=== PATIENT | male | born 1940 | race Caucasian/White ===

== ENCOUNTER 2018-02-13 09:25 | Day surgery (SDC) | payer MEDICARE, OTHER ==
[2018-02-11 15:35] VITALS: BMI 35.9
[~2018-02-13 09:25] MED LIST: LACTATED RINGERS 1,000 ML IV SCH
[2018-02-13 10:48] VITALS: TEMP 97
[2018-02-13] MEDS ORDERED: LIDOCAINE 1% 20 ML VIAL (10MG/ML) FOR IV START INTRADERMA ONE (10:49)
[2018-02-13] MEDS ORDERED: PROPOFOL 10 MG/ML 20 ML VIAL IV ONE (11:35)
[2018-02-13] MEDS ORDERED: LIDOCAINE 1% INJ 10MG/ML (20 ML MDV) ONE (11:35)
[2018-02-13 12:12] VITALS: BP 132/87; PULSE 75; RESP 12
--- NOTE | 2018-02-13 12:16 | P.PCN ---
Date of Procedure: 02/13/18 Procedure(s) Performed: Procedure: 1. Esophagogastroduodenoscopy and biopsy. 2. Total colonoscopy. Preoperative diagnosis: Hemoccult-positive stools. Postoperative diagnosis: 1. Small sliding hiatal hernia with no obvious esophagitis or complicated reflux disease. 2. Antral gastritis. 3. Diverticulosis with no evidence of acute diverticulitis or strictures. 4. Biopsy obtained from the antrum to rule out H. pylori infection. Preparation: HalfLytely prep. Sedation: Was provided by anesthesia. Brief clinical history: The patient is a 77-year-old male who is referred for this evaluation because of finding of Hemoccult positive stools. The patient has history of polyps and history of peptic ulcer disease. Procedure: With the patient on his left lateral decubitus position and after informed consent and adequate sedation, I passed the Olympus-GIF 160 video upper endoscope through the cricopharyngeus down the esophagus. GE junction was around 38 cm from the incisors and there was a small sliding hiatal hernia but no obvious esophagitis or complicated reflux disease. The endoscope was then passed into the stomach which was insufflated with air and inspected in detail including the retroflex view in the cardia. There was some mottling and erythema and couple erosions in the antrum but no ulcers or bleeding. Pyloric channel, duodenal bulb, post bulbar area and descending duodenum appeared within normal limits. I obtained biopsies from the antrum then the endoscope was withdrawn and I proceeded with the colonoscopy. Perianal area did not show any fissures or fistulas. There were no masses felt on digital rectal examination. The Olympus CFQ 160L video colonoscope was then inserted in the rectum in the usual fashion and advanced to the cecum. There were multiple diverticular orifices seen scattered on the sigmoid and left side as well as on the right side with no evidence of acute diverticulitis or strictures. No polyps or tumors were seen the mucosa appeared healthy. I retroflexed the endoscope in the rectum before the endoscope was withdrawn. The patient tolerated the procedure well. Plan: The patient was reassured. Discussed dietary measures. We will await biopsy results. Further plans based on his course. He will follow up with you as planned.
== END 2018-02-13 13:12 | disposition home or self-care (01) ==
LOC: ORWHC2ENDO 09:25
DX: K29.70 Gastritis, unspecified, without bleeding (principal); R19.5 Other fecal abnormalities; K44.9 Diaphragmatic hernia without obstruction or gangrene; K57.30 Diverticulosis of large intestine without perforation or abscess without bleeding; I25.10 Atherosclerotic heart disease of native coronary artery without angina pectoris; I10 Essential (primary) hypertension; E78.5 Hyperlipidemia, unspecified; E07.9 Disorder of thyroid, unspecified; K21.9 Gastro-esophageal reflux disease without esophagitis; Z79.82 Long term (current) use of aspirin; Z79.899 Other long term (current) drug therapy; Z95.5 Presence of coronary angioplasty implant and graft; Z86.010 Personal history of colon polyps; Z87.11 Personal history of peptic ulcer disease
CPT/HCPCS: 88305; 45378; 43239; J2001; J2704

== ENCOUNTER 2020-08-14 17:52 | Inpatient (IN) | payer MEDICARE, OTHER ==
--- NOTE | 2020-08-14 18:21 | ED ---
General Adult HPI - General Chief complaint: Chest Pain Stated complaint: Chest Pain, SOB Time Seen by Provider: 08/14/20 18:05 Source: patient, RN notes reviewed, old records reviewed Mode of arrival: wheelchair Limitations: no limitations - History of Present Illness Initial comments: 80-year-old male presenting with chief complaint of dyspnea. Patient has had some chest discomfort associated with dyspnea. Has been ongoing for approximately one week. He denies fever. Denies significant cough. He denies lower extremity pain or swelling. He has history of CAD. He has no history of DVT or PE. No history of COPD or asthma. Patient states that he has predominately exertional dyspnea. He also reports nasal congestion and rhinorrhea. No vomiting or diarrhea. He denies primary rectal bleeding, he does state that his stool has been dark and he has been taking some indigestion medication. - Related Data Home Medications Medication Instructions Recorded Confirmed Aspirin [Adult Low Dose Aspirin EC] 81 mg PO DAILY 02/11/18 08/14/20 Levothyroxine Sodium [Synthroid] 200 mcg PO DAILY 02/11/18 08/14/20 Cholecalciferol [Vitamin D3 (25 25 mcg PO DAILY 08/14/20 08/14/20 Mcg = 1000 Iu)] Cyanocobalamin (Vitamin B-12) 1,000 mcg PO DAILY 08/14/20 08/14/20 [Vitamin B-12] Fexofenadine HCl [Isabelle Allergy] 180 mg PO DAILY PRN 08/14/20 08/14/20 Omeprazole [PriLOSEC] 20 mg PO DAILY PRN 08/14/20 08/14/20 Allergies Allergy/AdvReac Type Severity Reaction Status Date / Time No Known Allergies Allergy Verified 08/14/20 19:10 Review of Systems ROS Statement: Those systems with pertinent positive or pertinent negative responses have been documented in the HPI. ROS Other: All systems not noted in ROS Statement are negative. Past Medical History Past Medical History: Eye Disorder, GERD/Reflux, Hyperlipidemia, Hypertension, Thyroid Disorder Additional Past Medical History / Comment(s): "Prediabetes, watching diet, no me dications." Bilateral cataracts. History of Any Multi-Drug Resistant Organisms: None Reported Past Surgical History: Cholecystectomy, Heart Catheterization With Stent Additional Past Surgical History / Comment(s): Colonoscopy. Past Anesthesia/Blood Transfusion Reactions: No Reported Reaction Date of Last Stent Placement:: 2012 Past Psychological History: No Psychological Hx Reported Smoking Status: Never smoker Past Alcohol Use History: Rare Past Drug Use History: None Reported - Past Family History Brother(s) Family Medical History: Cancer General Exam Limitations: no limitations General appearance: alert, in no apparent distress Head exam: Present: atraumatic, normocephalic Eye exam: Present: normal appearance, PERRL ENT exam: Present: mucous membranes moist Neck exam: Present: normal inspection. Absent: tenderness, meningismus Respiratory exam: Present: respiratory distress, rhonchi, decreased breath sounds Cardiovascular Exam: Present: normal rhythm, tachycardia GI/Abdominal exam: Present: soft. Absent: distended, tenderness, guarding Rectal exam: Present: black stool Extremities exam: Present: normal inspection, normal capillary refill. Absent: pedal edema, calf tenderness Neurological exam: Present: alert, oriented X3, CN II-XII intact. Absent: motor sensory deficit Psychiatric exam: Present: normal affect, normal mood Skin exam: Present: warm, dry, intact. Absent: cyanosis, diaphoretic Course Vital Signs 08/14/20 08/14/20 17:53 19:17 Temperature 98 F Pulse Rate 120 H 105 H Respiratory 24 17 Rate Blood Pressure 177/74 129/68 O2 Sat by Pulse 100 99 Oximetry EKG Findings - EKG Comments: EKG Findings:: EKG: Sinus tachycardia, low voltage, rate of 103, CT interval 180, QRS duration 90, QTC 437, no ST segment elevation. Medical Decision Making - Medical Decision Making 80-year-old male with exertional dyspnea, dark stool. Workup initiated, patient found to have a hemoglobin 6.9, he has a normal CMP, negative d-dimer, negative troponin, negative BNP and I suspect his dyspnea is related to acute anemia. He's transfused one unit of packed RBCs, started on protonic's. He's admitted to Dr. Massey who is aware of the patient with GI on consult. - Lab Data Result diagrams: 08/14/20 18:32 08/14/20 18:32 Lab Results 08/14/20 08/14/20 08/14/20 Range/Units 18:32 18:32 18:32 WBC 10.7 H (3.8-10.6) k/uL RBC 3.81 L (4.30-5.90) m/uL Hgb 6.9 L* (13.0-17.5) gm/dL Hct 24.8 L (39.0-53.0) % MCV 65.1 L (80.0-100.0) fL MCH 18.0 L (25.0-35.0) pg MCHC 27.7 L (31.0-37.0) g/dL RDW 17.3 H (11.5-15.5) % Plt Count 353 (150-450) k/uL MPV 9.9 Neutrophils % 59 % Lymphocytes % 31 % Monocytes % 5 % Eosinophils % 1 % Basophils % 1 % Neutrophils # 6.3 (1.3-7.7) k/uL Lymphocytes # 3.3 (1.0-4.8) k/uL Monocytes # 0.6 (0-1.0) k/uL Eosinophils # 0.1 (0-0.7) k/uL Basophils # 0.1 (0-0.2) k/uL Manual Slide Review Performed Large Platelets Present Hypochromasia Marked Poikilocytosis Moderate Anisocytosis Slight Microcytosis Marked PT 9.7 (9.0-12.0) sec INR 0.9 (<1.2) APTT 20.0 L (22.0-30.0) sec D-Dimer 0.55 (<0.60) mg/L FEU Sodium 138 (137-145) mmol/L Potassium 4.1 (3.5-5.1) mmol/L Chloride 103 (98-107) mmol/L Carbon Dioxide 25 (22-30) mmol/L Anion Gap 10 mmol/L BUN 25 H (9-20) mg/dL Creatinine 1.03 (0.66-1.25) mg/dL Est GFR (CKD-EPI)AfAm 80 (>60 ml/min/1.73 sqM) Est GFR (CKD-EPI)NonAf 69 (>60 ml/min/1.73 sqM) Glucose 119 H (74-99) mg/dL Calcium 9.3 (8.4-10.2) mg/dL Magnesium 2.0 (1.6-2.3) mg/dL Total Bilirubin 0.3 (0.2-1.3) mg/dL AST 16 L (17-59) U/L ALT 9 (4-49) U/L Alkaline Phosphatase 107 (38-126) U/L Troponin I (0.000-0.034) ng/mL NT-Pro-B Natriuret Pep pg/mL Total Protein 6.8 (6.3-8.2) g/dL Albumin 3.9 (3.5-5.0) g/dL Stool Occult Blood (Negative) Coronavirus (PCR) (Not Detectd) 08/14/20 08/14/20 08/14/20 Range/Units 18:32 18:32 18:32 WBC (3.8-10.6) k/uL RBC (4.30-5.90) m/uL Hgb (13.0-17.5) gm/dL Hct (39.0-53.0) % MCV (80.0-100.0) fL MCH (25.0-35.0) pg MCHC (31.0-37.0) g/dL RDW (11.5-15.5) % Plt Count (150-450) k/uL MPV Neutrophils % % Lymphocytes % % Monocytes % % Eosinophils % % Basophils % % Neutrophils # (1.3-7.7) k/uL Lymphocytes # (1.0-4.8) k/uL Monocytes # (0-1.0) k/uL Eosinophils # (0-0.7) k/uL Basophils # (0-0.2) k/uL Manual Slide Review Large Platelets Hypochromasia Poikilocytosis Anisocytosis Microcytosis PT (9.0-12.0) sec INR (<1.2) APTT (22.0-30.0) sec D-Dimer (<0.60) mg/L FEU Sodium (137-145) mmol/L Potassium (3.5-5.1) mmol/L Chloride (98-107) mmol/L Carbon Dioxide (22-30) mmol/L Anion Gap mmol/L BUN (9-20) mg/dL Creatinine (0.66-1.25) mg/dL Est GFR (CKD-EPI)AfAm (>60 ml/min/1.73 sqM) Est GFR (CKD-EPI)NonAf (>60 ml/min/1.73 sqM) Glucose (74-99) mg/dL Calcium (8.4-10.2) mg/dL Magnesium (1.6-2.3) mg/dL Total Bilirubin (0.2-1.3) mg/dL AST (17-59) U/L ALT (4-49) U/L Alkaline Phosphatase (38-126) U/L Troponin I <0.012 (0.000-0.034) ng/mL NT-Pro-B Natriuret Pep 148 pg/mL Total Protein (6.3-8.2) g/dL Albumin (3.5-5.0) g/dL Stool Occult Blood (Negative) Coronavirus (PCR) Not Detected (Not Detectd) 08/14/20 Range/Units 19:11 WBC (3.8-10.6) k/uL RBC (4.30-5.90) m/uL Hgb (13.0-17.5) gm/dL Hct (39.0-53.0) % MCV (80.0-100.0) fL MCH (25.0-35.0) pg MCHC (31.0-37.0) g/dL RDW (11.5-15.5) % Plt Count (150-450) k/uL MPV Neutrophils % % Lymphocytes % % Monocytes % % Eosinophils % % Basophils % % Neutrophils # (1.3-7.7) k/uL Lymphocytes # (1.0-4.8) k/uL Monocytes # (0-1.0) k/uL Eosinophils # (0-0.7) k/uL Basophils # (0-0.2) k/uL Manual Slide Review Large Platelets Hypochromasia Poikilocytosis Anisocytosis Microcytosis PT (9.0-12.0) sec INR (<1.2) APTT (22.0-30.0) sec D-Dimer (<0.60) mg/L FEU Sodium (137-145) mmol/L Potassium (3.5-5.1) mmol/L Chloride (98-107) mmol/L Carbon Dioxide (22-30) mmol/L Anion Gap mmol/L BUN (9-20) mg/dL Creatinine (0.66-1.25) mg/dL Est GFR (CKD-EPI)AfAm (>60 ml/min/1.73 sqM) Est GFR (CKD-EPI)NonAf (>60 ml/min/1.73 sqM) Glucose (74-99) mg/dL Calcium (8.4-10.2) mg/dL Magnesium (1.6-2.3) mg/dL Total Bilirubin (0.2-1.3) mg/dL AST (17-59) U/L ALT (4-49) U/L Alkaline Phosphatase (38-126) U/L Troponin I (0.000-0.034) ng/mL NT-Pro-B Natriuret Pep pg/mL Total Protein (6.3-8.2) g/dL Albumin (3.5-5.0) g/dL Stool Occult Blood Positive (Negative) Coronavirus (PCR) (Not Detectd) Critical Care Time Critical Care Time: Yes Total Critical Care Time: 35 Disposition Clinical Impression: GI bleed, Acute blood loss anemia Disposition: ADMITTED IP TO THIS [facility] Condition: Stable Is patient prescribed a controlled substance at d/c from ED?: No Referrals: Solitario Otero MD [Primary Care Provider] - 1-2 days Decision to Admit Reason: Admit from EC Decision Date: 08/14/20 Decision Time: 19:45
[2020-08-14 18:42] LABS: Anisocytosis Slight; Basophils # (A) 0.1 k/uL (0-0.2); Basophils % (A) 1 %; Eosinophils # (A) 0.1 k/uL (0-0.7); Eosinophils % (A) 1 %; HCT 24.8 % (39.0-53.0); Hypochromasia Marked; Lymphocytes # (A) 3.3 k/uL (1.0-4.8); Lymphocytes % (A) 31 %; MCHC 27.7 g/dL (31.0-37.0); MCV 65.1 fL (80.0-100.0); Mean Platelet Volume 9.9; Microcytosis Marked; Monocytes # (A) 0.6 k/uL (0-1.0); Monocytes % (A) 5 %; Neutrophils # (A) 6.3 k/uL (1.3-7.7); Neutrophils % (A) 59 %; Platelet Count 353 k/uL (150-450); Poikilocytosis Moderate; RBC 3.81 m/uL (4.30-5.90); RDW 17.3 % (11.5-15.5); WBC 10.7 k/uL (3.8-10.6)
[2020-08-14 18:49] LABS: HGB 6.9 gm/dL (13.0-17.5)
[2020-08-14 18:51] LABS: Albumin 3.9 g/dL (3.5-5.0); Calcium 9.3 mg/dL (8.4-10.2); Potassium 4.1 mmol/L (3.5-5.1); Total Bilirubin 0.3 mg/dL (0.2-1.3); Total Protein 6.8 g/dL (6.3-8.2)
[2020-08-14 18:54] LABS: Large Platelets Present
[2020-08-14 19:01] LABS: INR 0.9 (<1.2)
--- NOTE | 2020-08-14 19:01 | XR ---
EXAMINATION TYPE: XR chest 2V DATE OF EXAM: 08/14/2020 COMPARISON: 02/20/2013. HISTORY: Chest pain. TECHNIQUE: Frontal and lateral views of the chest are obtained. FINDINGS: There is no focal air space opacity, pleural effusion, or pneumothorax seen. The cardiac silhouette size is enlarged. The osseous structures are intact. IMPRESSION: No acute cardiopulmonary process. Cardiomegaly.
[2020-08-14 19:02] LABS: D-Dimer 0.55 mg/L FEU (<0.60); Prothrombin Time 9.7 sec (9.0-12.0)
[2020-08-14] MEDS ORDERED: PANTOPRAZOLE 40 MG/10 ML VIAL IVP STA (19:02)
[2020-08-14] MEDS ORDERED: NALOXONE 0.4 MG/ML 1 ML VIAL IV PRN (19:40)
[2020-08-14] MEDS: SODIUM CHLORIDE 0.9% 1,000 ML IV SCH (19:54)
[2020-08-15] MEDS ORDERED: MELATONIN 3 MG TABLET PO STA (00:57)
[2020-08-15] MEDS: PANTOPRAZOLE 40 MG/10 ML VIAL IVP SCH ×3 (01:08→21:02)
[2020-08-15] MEDS: LEVOTHYROXINE 50 MCG TAB PO SCH (05:27)
[2020-08-15 05:48] LABS: Albumin 3.2 g/dL (3.5-5.0); Calcium 8.7 mg/dL (8.4-10.2); Potassium 4.3 mmol/L (3.5-5.1); Total Bilirubin 0.7 mg/dL (0.2-1.3)
[2020-08-15 06:26] LABS: Anisocytosis Slight; HCT 25.7 % (39.0-53.0); HGB 7.3 gm/dL (13.0-17.5); Hypochromasia Marked; MCHC 28.3 g/dL (31.0-37.0); MCV 67.1 fL (80.0-100.0); Mean Platelet Volume 10.4; Microcytosis Marked; Platelet Count 336 k/uL (150-450); Poikilocytosis Marked; RBC 3.83 m/uL (4.30-5.90); RDW 18.3 % (11.5-15.5); WBC 7.5 k/uL (3.8-10.6)
[2020-08-15 06:45] LABS: Eosinophils # (M) 0.23 k/uL (0-0.7); Lymphocytes # (M) 2.03 k/uL (1.0-4.8); Neutrophils # (M) 4.95 k/uL (1.3-7.7); Neutrophils % (M) 66 %; Nucleated Red Blood Cells 0 /100 WBC (0-0); Total Cells Counted 100
[2020-08-15 06:46] LABS: Anisocytosis (M) Present; Hypochromasia (M) Present; Ovalocytes Present; Poikilocytosis (M) Present; Polychromasia Present; Tear Drop Cells Present
[2020-08-15] MEDS: SODIUM CHLORIDE 0.9% 1,000 ML IV SCH ×2 (08:07→21:03)
--- NOTE | 2020-08-15 12:22 | CONS ---
CONSULTATION DATE OF DICTATION: 08/15/2020 REASON FOR CONSULTATION: Severe hypochromic microcytic anemia. HISTORY OF PRESENT ILLNESS: The patient is a 80-year-old pleasant white male came into the emergency room complaining of shortness of breath, fatigue, not feeling well with dark stools associated with some chest discomfort on and off for the last 1-2 weeks duration. He came to the ER, was noted to have a hemoglobin of 6.9 g/dL. He received one unit of PRBC transfusion and repeat hemoglobin is 8 g/dL. The patient denies any abdominal pain. No nausea, no vomiting. No rectal bleeding. He did have some dark colored stools on and off for the last one week duration. No prior history of peptic ulcer disease. No recent NSAID use. Last EGD and colonoscopy in January of [address] Pham showed some gastritis and diverticulosis. PAST MEDICAL HISTORY: Significant for coronary artery disease, hypothyroidism and GERD. MEDICATIONS AT HOME: Aspirin, Synthroid, vitamin B12, vitamin D3, Isabelle, omeprazole. ALLERGIES: None. SOCIAL HISTORY: No smoking. No alcohol use. PAST SURGICAL HISTORY: Cholecystectomy, cardiac catheterization. REVIEW OF SYSTEMS: CARDIOPULMONARY: Did have some chest discomfort and shortness of breath, but feeling much better today. NEUROLOGY: Unremarkable. PSYCHIATRIC: Unremarkable. ENT/VISION: Unremarkable. GI: As mentioned above. ENDOCRINE: Unremarkable. HEMATOLOGY: Severe anemia. CONSTITUTIONAL: No recent weight loss. No fever, chills, night sweats. FAMILY HISTORY: Brother had some kind of cancer. PHYSICAL EXAMINATION: He appears comfortable, in no apparent distress. Vital signs are stable. Blood pressure 133/86, pulse rate 82 and afebrile. HEENT EXAMINATION: Unremarkable. Conjunctivae pink. Sclerae anicteric. Oral cavity no lesions. NECK: No JVD or lymph node enlargement. CHEST: Was clear to auscultation. HEART: Regular rate and rhythm. ABDOMEN: Soft. Bowel sounds are positive. No organomegaly. EXTREMITIES: No pedal edema. SKIN: No rashes. NEUROLOGIC: Alert and oriented x3. No focal deficits. LABS: Labs from yesterday, WBC 10.7, hemoglobin 6.9, platelets normal. Basic metabolic panel is within normal limits. BUN 25, creatinine 1.03. Stool occult blood is positive. Coronavirus PCR is negative. IMPRESSION: 1. Severe microcytic hypochromic anemia consistent with iron deficiency anemia from occult gastrointestinal blood loss. The patient may have a component of acute blood loss too because he has been having some dark-colored stools for the last one week duration. Last EGD and colonoscopy in January of 2018 was unremarkable. 2. History of coronary artery disease, status post stent placement 5 years ago, on aspirin. 3. History of hypothyroidism. RECOMMENDATIONS: 1. Continue with Protonix 40 mg daily. 2. I had a lengthy discussion with the patient regarding severe microcytic hypochromic anemia and workup will include an upper endoscopy as well as colonoscopy for which he is agreeable to it. In the meantime, monitor CBC daily. Schedule him for EGD and colonoscopy tomorrow. 3. We will follow with you closely. Thank you for this consultation. SOLIS / MEAGANN: [id number] /
[2020-08-15 12:40] LABS: Anisocytosis Slight; HCT 24.6 % (39.0-53.0); HGB 7.2 gm/dL (13.0-17.5); Hypochromasia Marked; MCH 19.8 pg (25.0-35.0); MCHC 29.4 g/dL (31.0-37.0); MCV 67.3 fL (80.0-100.0); Mean Platelet Volume 9.4; Microcytosis Marked; Platelet Count 312 k/uL (150-450); Poikilocytosis Marked; RBC 3.66 m/uL (4.30-5.90); RDW 18.4 % (11.5-15.5); WBC 7.7 k/uL (3.8-10.6)
[2020-08-15 13:05] LABS: Calcium 8.8 mg/dL (8.4-10.2); Potassium 4.6 mmol/L (3.5-5.1)
[2020-08-15] MEDS ORDERED: PEG 3350-NA SULF,BICARB,CL/KCL 4,000 ML BOTTLE PO ONE (17:00)
[2020-08-16] MEDS: LEVOTHYROXINE 50 MCG TAB PO SCH (06:31)
[2020-08-16] MEDS: PANTOPRAZOLE 40 MG/10 ML VIAL IVP SCH ×2 (08:07→21:41)
[2020-08-16 09:38] LABS: Anisocytosis Slight; HCT 25.3 % (39.0-53.0); HGB 7.2 gm/dL (13.0-17.5); Hypochromasia Marked; MCH 19.1 pg (25.0-35.0); MCHC 28.6 g/dL (31.0-37.0); Microcytosis Marked; Platelet Count 291 k/uL (150-450); Poikilocytosis Marked; RBC 3.77 m/uL (4.30-5.90); RDW 19.3 % (11.5-15.5); WBC 8.4 k/uL (3.8-10.6)
[2020-08-16 09:49] LABS: Calcium 8.6 mg/dL (8.4-10.2); Potassium 4.5 mmol/L (3.5-5.1)
[2020-08-16] MEDS ORDERED: LIDOCAINE 1% INJ 10MG/ML (20 ML MDV) ONE (12:54)
[2020-08-16] MEDS ORDERED: PROPOFOL 10 MG/ML 20 ML VIAL IV ONE (12:54)
[2020-08-16] MEDS ORDERED: IV FLUID CONTINUATION 1,000 ML IV ONE ×2 (12:55)
--- NOTE | 2020-08-16 13:24 | P.PCN ---
Date of Procedure: 08/16/20 Procedure(s) Performed: Brief history: Patient is a pleasant 80-year-old white male scheduled for an elective upper endoscopy as well as colonoscopy as a part of evaluation of severe symptomatic anemia and hemoglobin of 6.9 g/dL requiring 1 unit of PRBC transfusion. He having some darker stools lately. Last hemoglobin was 7.5 g/dL. Procedure performed: Esophagogastroduodenoscopy biopsy Colonoscopy Preoperative diagnosis: Severe symptomatic anemia and dark colored stools. Anesthesia: MAC Procedure: After informed consent was obtained from the patient was brought into the endoscopy unit and IV sedation was administered by anesthesia under continuous monitoring. Initially upper endoscopy was done. The Olympus GF 160 video endoscope was inserted inserted into the mouth and esophagus intubated without any difficulty and was gradually advanced into the stomach and duodenum and carefully examined. The bulb and second part of the duodenum appeared normal. The scope was then withdrawn into the stomach adequately insufflated with air and upon careful examination the antrum had a 5 mm superficial ulceration with no active bleeding. Gastritis noted in the antrum and biopsies were done from this area. The body, cardia and fundus appeared normal. The scope was then withdrawn into the esophagus. The GE junction was located at 40 cm to the incisors. It appeared regular with no erythema erosions or ulcerations. Rest of the esophagus appeared normal. Patient tolerated the procedure well. At this time the patient continued to remain sedation. Initial digital rectal examination was normal. Olympus CF 160 video colonoscope was then inserted into the rectum and gradually advanced to the cecum without any difficulty. Careful examination was performed as the scope was gradually being withdrawn. The prep was excellent. The cecum appeared normal. In the ascending colon there was a 1 cm polyp removed by snare polypectomy., ascending colon, transverse colon, descending colon, sigmoid colon and rectum appeared normal. Scattered sigmoid diverticulosis seen. Retroflexion was performed in the rectum and no lesions were noted. Patient tolerated the procedure well. Impression: 1. Upper endoscopy revealed 5 mm antral ulcer with no active bleeding and antral gastritis 2. Colonoscopy revealed a revealed a 1 cm ascending colon polyp status post polypectomy and scattered sigmoid diverticulosis Recommendations: Findings of this examination were discussed with the patient . He was advised to follow with the biopsy results. He will continue on Protonix 40 mg daily and follow antireflux measures. Diet will be advanced as tolerated.
--- NOTE | 2020-08-16 17:36 | PN ---
PROGRESS NOTE DATE OF SERVICE: 08/15/2020 CHIEF COMPLAINT: GI bleed. HISTORY OF PRESENT ILLNESS: This gentleman is doing well. He is not having any further bleeding. He is going for endoscopies tomorrow. PHYSICAL EXAMINATION: Vital signs are stable. He is pale. Chest is clear. Cardiac exam is normal. Abdomen is soft and protuberant. IMPRESSION: 1. Gastrointestinal bleed, probably upper. 2. History of hypertension. 3. History of anemia. 4. Hyperlipidemia. PLAN: Endoscopies tomorrow. MMODL / IJN: [id number] /
--- NOTE | 2020-08-16 18:27 | PN ---
PROGRESS NOTE DATE OF SERVICE: 08/16/2020 CHIEF COMPLAINT: GI bleed. HISTORY OF PRESENT ILLNESS: This gentleman is stable and he is going for endoscopies today. PHYSICAL EXAMINATION: Chest is clear. Cardiac exam is normal. Abdomen is soft and protuberant. IMPRESSION: Gastrointestinal bleed. PLAN: Upper and lower GI endoscopies today and then determine further treatment and possible discharge. MMODL / IJN: [id number] /
[2020-08-17] MEDS: LEVOTHYROXINE 50 MCG TAB PO SCH (06:19)
[2020-08-17] MEDS: PANTOPRAZOLE 40 MG/10 ML VIAL IVP SCH ×2 (08:46→19:32)
[2020-08-17 11:16] LABS: Anisocytosis Slight; HCT 24.3 % (39.0-53.0); Hypochromasia Marked; MCH 19.3 pg (25.0-35.0); MCHC 28.3 g/dL (31.0-37.0); MCV 68.1 fL (80.0-100.0); Mean Platelet Volume 7.7; Microcytosis Marked; Platelet Count 275 k/uL (150-450); Poikilocytosis Moderate; RBC 3.57 m/uL (4.30-5.90); RDW 19.2 % (11.5-15.5); WBC 7.7 k/uL (3.8-10.6)
[2020-08-17 11:26] LABS: HGB 6.9 gm/dL (13.0-17.5)
--- NOTE | 2020-08-17 11:58 | P.PN ---
Subjective Progress Note Date: 08/17/20 Principal diagnosis: Severe hypochromic microcytic anemia This patient is a pleasant 80-year-old white male who underwent an upper endoscopy and colonoscopy yesterday as part of evaluation of severe symptomatic anemia with an admission hemoglobin of 6.9 requiring 1 unit of PRBC transfusion. He states he's been having darker stools for the last week's duration. Today he is seen and examined lying up in bed. He states he feels well overall. Denies any abdominal pain, nausea, or vomiting. He has not had a bowel movement since his procedures and denies any rectal bleeding. Objective - Vital Signs Vital signs: Vital Signs Temp 98.6 F 08/17/20 08:45 Pulse 90 08/17/20 08:45 Resp 16 08/17/20 08:45 BP 112/65 08/17/20 08:45 Pulse Ox 97 08/17/20 08:45 Intake & Output 08/16/20 08/17/20 08/17/20 18:59 06:59 18:59 Intake Total 1180 240 Balance 1180 240 Weight 122.1 kg Intake: IV 400 Oral 780 240 Other: Voiding Method Toilet Toilet # Voids 3 2 - Exam General appearance: The patient is alert, oriented, appears in no acute distress. HET: Head is normocephalic and atraumatic. Conjunctiva pink. Sclera anicteric. Neck: Supple without lymphadenopathy. Abdomen: Soft, nontender, nondistended with bowel sounds. No guarding or rigidity. Extremities: Normal skin color and turgor. No pedal edema Skin: No rashes, no jaundice Neurological: No focal deficits. Alert and oriented 3. - Labs CBC & Chem 7: 08/17/20 10:02 08/16/20 09:00 Labs: Abnormal Lab Results - Last 24 Hours (Table) 08/16/20 08/16/20 Range/Units 09:00 09:00 RBC 3.77 L (4.30-5.90) m/uL Hgb 7.2 L (13.0-17.5) gm/dL Hct 25.3 L (39.0-53.0) % MCV 67.0 L (80.0-100.0) fL MCH 19.1 L (25.0-35.0) pg MCHC 28.6 L (31.0-37.0) g/dL RDW 19.3 H (11.5-15.5) % Sodium 136 L (137-145) mmol/L Glucose 122 H (74-99) mg/dL Assessment and Plan (1) Hypochromic-microcytic anemia Narrative/Plan: Patient with severe microcytic hypochromic anemia consistent with iron deficiency anemia from occult gastrointestinal blood loss. The patient may have component of acute blood loss 2 because he has been having some dark-colored stools in the last 1 week duration. Last EGD and colonoscopy was in January of 2018 which was unremarkable. Yesterday he underwent an EGD and colonoscopy as part of his evaluation. His upper endoscopy revealed a 5 mm antral ulcer with no active bleeding and antral gastritis. Colonoscopy revealed a 1 cm ascending colon polyp status post polypectomy, along with scattered sigmoid diverticulosis. The patient had a drop in his hemoglobin to 6.9, 1 unit of PRBC ordered. We will proceed with a small bowel video capsule endoscopy tomorrow morning. Current Visit: Yes Status: Acute Code(s): D50.9 - IRON DEFICIENCY ANEMIA, UN SPECIFIED SNOMED Code(s): 48843152 (2) History of coronary artery disease Current Visit: Yes Status: Acute Code(s): Z86.79 - PERSONAL HISTORY OF OTHER DISEASES OF THE CIRCULATORY SYSTEM SNOMED Code(s): 157841444 (3) Hypothyroid Current Visit: Yes Status: Acute Code(s): E03.9 - HYPOTHYROIDISM, UNSPECIFIED SNOMED Code(s): 41012481 Plan: 1. Supportive care 2. Continue Protonix 40 mg daily 3. Repeat CBC daily, transfuse for hemoglobin less than 7 4. One unit PRBC transfusion ordered 5. Nothing by mouth after midnight 6. Will schedule patient for small bowel video capsule endoscopy 7. Magnesium citrate this evening Thank you for this consultation, we will continue to monitor closely Dr. Salome Morgan I agree with the dictator's note, documented as a scribe by Flori Pagan.
[2020-08-17 16:44] LABS: Anisocytosis Slight; HCT 26.8 % (39.0-53.0); HGB 7.7 gm/dL (13.0-17.5); Hypochromasia Marked; MCH 19.8 pg (25.0-35.0); MCHC 28.7 g/dL (31.0-37.0); MCV 68.9 fL (80.0-100.0); Mean Platelet Volume 9.4; Microcytosis Marked; Platelet Count 286 k/uL (150-450); Poikilocytosis Marked; RBC 3.89 m/uL (4.30-5.90); RDW 19.5 % (11.5-15.5); WBC 8.2 k/uL (3.8-10.6)
[2020-08-17] MEDS ORDERED: MAGNESIUM CITRATE 296 ML BOTTLE PO ONE (18:00)
[2020-08-17] MEDS: SODIUM CHLORIDE 0.9% 1,000 ML IV SCH ×2 (19:31→19:37)
--- NOTE | 2020-08-17 20:15 | PN ---
PROGRESS NOTE DATE OF SERVICE: 08/17/2020 CHIEF COMPLAINT: GI bleed. HISTORY OF PRESENT ILLNESS: This gentleman is doing well. It was expected that he might be able to go home today, but his hemoglobin has come back at 6.9. REVIEW OF SYSTEMS: He has had no fever, chills, shortness of breath, nausea, vomiting, diarrhea, melena, etc. PHYSICAL EXAMINATION: His chest is clear. Cardiac exam is normal. Abdomen is soft and nontender. IMPRESSION: Gastrointestinal bleed. PLAN: He will be transfused again today and his discharge will be held for another 24 hours. MMODL / IJN: [id number] /
[2020-08-18] MEDS: SODIUM CHLORIDE 0.9% 1,000 ML IV SCH ×2 (04:06→17:50)
[2020-08-18] MEDS: LEVOTHYROXINE 50 MCG TAB PO SCH (06:04)
[2020-08-18] MEDS ORDERED: SIMETHICONE 40 MG/0.6 ML DROPS 2,000 MG/30 ML BOTTLE PO ONE (07:44)
[2020-08-18] MEDS: PANTOPRAZOLE 40 MG/10 ML VIAL IVP SCH (08:01)
[2020-08-18 08:56] LABS: Anisocytosis Slight; HGB 7.8 gm/dL (13.0-17.5); Hypochromasia Marked; MCH 19.7 pg (25.0-35.0); MCHC 28.8 g/dL (31.0-37.0); MCV 68.4 fL (80.0-100.0); Mean Platelet Volume 7.8; Microcytosis Marked; Platelet Count 277 k/uL (150-450); Poikilocytosis Marked; RBC 3.95 m/uL (4.30-5.90); RDW 19.5 % (11.5-15.5); WBC 7.5 k/uL (3.8-10.6)
--- NOTE | 2020-08-18 11:19 | P.PN ---
Subjective Progress Note Date: 08/18/20 Principal diagnosis: Severe hypochromic microcytic anemia This patient is a pleasant 80-year-old white male who underwent an upper endoscopy and colonoscopy yesterday as part of evaluation of severe symptomatic anemia with an admission hemoglobin of 6.9 requiring 1 unit of PRBC transfusion. He states he's been having darker stools for the last week's duration. [place] today he again had a drop in his hemoglobin, he is now status post 2 units of PRBC transfusion. His hemoglobin is stable at 7.8. Today he is seen and examined lying up in bed. He states he feels well overall. Denies any abdominal pain, nausea, or vomiting. He reports having a bowel movement this morning at 4 AM which he noted as brown in color. He underwent a small bowel video capsule endoscopy this morning at 7 AM. Objective - Vital Signs Vital signs: Vital Signs Temp 98.1 F 08/18/20 07:54 Pulse 92 08/18/20 07:54 Resp 20 08/18/20 07:54 BP 126/74 08/18/20 07:54 Pulse Ox 95 08/18/20 07:54 Intake & Output 08/17/20 08/18/20 08/18/20 18:59 06:59 18:59 Intake Total 1030 0 Balance 1030 0 Weight 121 kg Intake: Oral 720 0 Blood Product 310 Rc As-1 Unit 310 [id number] Other: Voiding Method Toilet Toilet # Voids 2 3 # Bowel Movements 1 - Exam General appearance: The patient is alert, oriented, appears in no acute distress. HET: Head is normocephalic and atraumatic. Conjunctiva pink. Sclera anicteric. Neck: Supple without lymphadenopathy. Abdomen: Soft, nontender, nondistended with bowel sounds. No guarding or rigidity. Extremities: Normal skin color and turgor. No pedal edema Skin: No rashes, no jaundice Neurological: No focal deficits. Alert and oriented 3. - Labs CBC & Chem 7: 08/18/20 08:39 08/16/20 09:00 Labs: Abnormal Lab Results - Last 24 Hours (Table) 08/14/20 08/17/20 08/17/20 Range/Units 19:11 10:02 16:14 RBC 3.57 L 3.89 L (4.30-5.90) m/uL Hgb 6.9 L* 7.7 L (13.0-17.5) gm/dL Hct 24.3 L 26.8 L (39.0-53.0) % MCV 68.1 L 68.9 L (80.0-100.0) fL MCH 19.3 L 19.8 L (25.0-35.0) pg MCHC 28.3 L 28.7 L (31.0-37.0) g/dL RDW 19.2 H 19.5 H (11.5-15.5) % Crossmatch See Detail 08/18/20 Range/Units 08:39 RBC 3.95 L (4.30-5.90) m/uL Hgb 7.8 L (13.0-17.5) gm/dL Hct 27.0 L (39.0-53.0) % MCV 68.4 L (80.0-100.0) fL MCH 19.7 L (25.0-35.0) pg MCHC 28.8 L (31.0-37.0) g/dL RDW 19.5 H (11.5-15.5) % Crossmatch Assessment and Plan (1) Hypochromic-microcytic anemia Narrative/Plan: Patient with severe microcytic hypochromic anemia consistent with iron deficiency anemia from occult gastrointestinal blood loss. The patient may have component of acute blood loss 2 because he has been having some dark-colored stools in the last 1 week duration. Last EGD and colonoscopy was in January of 2018 which was unremarkable. Yesterday he underwent an EGD and colonoscopy as part of his evaluation. His upper endoscopy revealed a 5 mm antral ulcer with no active bleeding and antral gastritis. Colonoscopy revealed a 1 cm ascending colon polyp status post polypectomy, along with scattered sigmoid diverticulosis. The patient had a drop in his hemoglobin to 6.9, 1 unit of PRBC ordered. We will proceed with a small bowel video capsule endoscopy. Current Visit: Yes Status: Acute Code(s): D50.9 - IRON DEFICIENCY ANEMIA, UNSPECIFIED SNOMED Code(s): 38731105 (2) History of coronary artery disease Current Visit: Yes Status: Acute Code(s): Z86.79 - PERSONAL HISTORY OF OTHER DISEASES OF THE CIRCULATORY SYSTEM SNOMED Code(s): 081211570 (3) Hypothyroid Current Visit: Yes Status: Acute Code(s): E03.9 - HYPOTHYROIDISM, UNSPECIFIED SNOMED Code(s): 80562264 Plan: 1. Supportive care 2. Continue Protonix 40 mg daily 3. Repeat CBC daily, transfuse for hemoglobin less than 7 4. May have clear liquid diet, and advance to regular diet for lunch 5. Small bowel video capsule endoscopy today If Patient has no further signs of bleeding, patient may be discharged home after small bowel capsule endoscopy with outpatient follow up next week Thank you for this consultation, we will continue to monitor closely Dr. Salome Morgan I agree with the dictator's note, documented as a scribe by Folri Pagan.
[2020-08-18] MEDS: PANTOPRAZOLE 40 MG TABLET PO SCH (20:59)
[2020-08-19] MEDS: LEVOTHYROXINE 50 MCG TAB PO SCH (06:08)
[2020-08-19] MEDS: SODIUM CHLORIDE 0.9% 1,000 ML IV SCH (06:10)
[2020-08-19 07:52] VITALS: RESP 20
[2020-08-19] MEDS: PANTOPRAZOLE 40 MG TABLET PO SCH (08:24)
[2020-08-19 12:05] VITALS: BP 119/65; PULSE 97; TEMP 97.4
[2020-08-19 12:26] VITALS: BMI 36.7
[2020-08-19 12:45] LABS: Anisocytosis Slight; HCT 27.6 % (39.0-53.0); HGB 7.9 gm/dL (13.0-17.5); Hypochromasia Marked; MCH 19.6 pg (25.0-35.0); MCHC 28.6 g/dL (31.0-37.0); MCV 68.3 fL (80.0-100.0); Mean Platelet Volume 8.3; Microcytosis Marked; Platelet Count 293 k/uL (150-450); Poikilocytosis Marked; RBC 4.03 m/uL (4.30-5.90); WBC 7.3 k/uL (3.8-10.6)
--- NOTE | 2020-08-19 13:13 | P.PN ---
Subjective Progress Note Date: 08/19/20 Principal diagnosis: Severe hypochromic microcytic anemia This patient is a pleasant 80-year-old white male who underwent an upper endoscopy and colonoscopy as part of evaluation of severe symptomatic anemia with an admission hemoglobin of 6.9 requiring 1 unit of PRBC transfusion. He states he's been having darker stools for the last week's duration. [place] today he again had a drop in his hemoglobin, he is now status post 2 units of PRBC transfusion. His hemoglobin is stable at 7.9. Today he is seen and examined In the recliner. He states he feels well overall. Denies any abdominal pain, nausea, or vomiting. Does state he is feeling some bloating, feels the urge to have a bowel movement but unable to at this time. He has had no further signs of GI bleed. Today he underwent a small bowel video capsule endoscopy, however results are still pending. Objective - Vital Signs Vital signs: Vital Signs Temp 98.3 F 08/19/20 07:51 Pulse 87 08/19/20 07:51 Resp 20 08/19/20 07:51 BP 111/63 08/19/20 07:51 Pulse Ox 94 L 08/19/20 07:51 Intake & Output 08/18/20 08/19/20 08/19/20 18:59 06:59 18:59 Intake Total 355 180 Balance 355 180 Weight 119.4 kg Intake: Oral 355 180 Other: Voiding Method Toilet # Voids 1 1 - Exam General appearance: The patient is alert, oriented, appears in no acute distress. HET: Head is normocephalic and atraumatic. Conjunctiva pink. Sclera anicteric. Neck: Supple without lymphadenopathy. Abdomen: Soft, nontender, nondistended with bowel sounds. No guarding or rigidity. Extremities: Normal skin color and turgor. No pedal edema Skin: No rashes, no jaundice Neurological: No focal deficits. Alert and oriented 3. - Labs CBC & Chem 7: 08/19/20 10:31 08/16/20 09:00 Assessment and Plan (1) Hypochromic-microcytic anemia Narrative/Plan: Patient with severe microcytic hypochromic anemia consistent with iron deficiency anemia from occult gastrointestinal blood loss. The patient may have component of acute blood loss 2 because he has been having some dark-colored stools in the last 1 week duration. Last EGD and colonoscopy was in January of 2018 which was unremarkable. Yesterday he underwent an EGD and colonoscopy as part of his evaluation. His upper endoscopy revealed a 5 mm antral ulcer with no active bleeding and antral gastritis. Colonoscopy revealed a 1 cm ascending colon polyp status post polypectomy, along with scattered sigmoid diverticulosis. The patient had a drop in his hemoglobin to 6.9, 1 unit of PRBC order. She received a total of 2 units of PRBC. Hemoglobin is stable today at 7.9. Small bowel video capsule endoscopy performed yesterday, results pending. Current Visit: Yes Status: Acute Code(s): D50.9 - IRON DEFICIENCY ANEMIA, UNSPECIFIED SNOMED Code(s): 13874490 (2) History of coronary artery disease Current Visit: Yes Status: Acute Code(s): Z86.79 - PERSONAL HISTORY OF OTHER DISEASES OF THE CIRCULATORY SYSTEM SNOMED Code(s): 985160711 (3) Hypothyroid Current Visit: Yes Status: Acute Code(s): E03.9 - HYPOTHYROIDISM, UNSPECIFIED SNOMED Code(s): 98861246 Plan: 1. Supportive care 2. Continue Protonix 40 mg daily 3. Repeat CBC daily, transfuse for hemoglobin less than 7 4. Regular diet 5. Patient is status post EGD and colonoscopy. Small bowel video capsule endoscopy stretch, results pending. 6. Patient may be discharged home if otherwise medically clear. Likely video capsule endoscopy will unable to be read today. Patient may follow-up in the office in one week for results. Thank you for this consultation. Dr. Baumann I agree with the dictator's note, documented as a scribe by Flori Pagan.
--- NOTE | 2020-08-20 14:08 | PN ---
PROGRESS NOTE CHIEF COMPLAINT: GI bleed with persistent anemia. HISTORY OF PRESENT ILLNESS: This gentleman is doing well. He is undergoing a small bowel evaluation with a capsule study. The consensus is that he may have chronic anemia due to slow GI blood loss. Otherwise doing well. He has had no shortness of breath, chest pain, abdominal pain, etc. PHYSICAL EXAMINATION: He remains slightly pale. Chest is clear. Cardiac exam is normal. The abdomen is soft and nontender. IMPRESSION: 1. Upper gastrointestinal bleed. 2. Gastric ulcer disease. 3. Chronic anemia. 4. Hypothyroidism. PLAN: Await completion of the capsule study and he will probably go home tomorrow. MMODL / IJN: [id number] /
--- NOTE | 2020-08-20 18:36 | DS ---
DISCHARGE SUMMARY CHIEF COMPLAINT: Upper gastrointestinal hemorrhage and blood loss anemia. HISTORY OF PRESENT ILLNESS AND PHYSICAL EXAMINATION: Details of this man's history and physical can be found in the initial workup. LABORATORY STUDIES: While he was in the hospital, he had laboratory studies, details of which can be found in the laboratory section of his chart. COURSE IN THE HOSPITAL: After admission, he was placed on bedrest, started on intravenous fluids and was seen by Gastroenterology. Subsequently taken for an upper GI endoscopy where he was found to have gastric ulcer disease with no active bleeding. Postoperatively, he did well, but his hemoglobin dropped below 7 once again. While he was in the hospital, decision was made to do a capsule study and this was completed on the morning of discharge and it was felt he could go home. He will go home on light activity, his usual diet and he will follow up in the office in several days. FINAL DIAGNOSES: 1. Upper gastrointestinal hemorrhage. 2. Gastric ulcer disease. 3. Blood loss anemia. 4. Hypothyroidism. OPERATIONS: Endoscopy. CONSULTATIONS: Gastroenterology. He is improved. SOLIS / ARMEN: [id number] /
== END 2020-08-19 16:25 | disposition home or self-care (01) | DRG 378 ==
LOC: EC 17:52 → 3SCARD 19:40
PROVIDERS: ADMIT Family Medicine; ATTEND Family Medicine
PROC: 30233N1 Transfusion of Nonautologous Red Blood Cells into Peripheral Vein, Percutaneous Approach (ICD-10-PCS; 2020-08-14)
PROC: 0DB68ZX Excision of Stomach, Via Natural or Artificial Opening Endoscopic, Diagnostic (ICD-10-PCS; principal; 2020-08-16 12:30)
PROC: 0DBK8ZX Excision of Ascending Colon, Via Natural or Artificial Opening Endoscopic, Diagnostic (ICD-10-PCS; principal; 2020-08-16 12:30)
DX: K25.4 Chronic or unspecified gastric ulcer with hemorrhage (principal); D62 Acute posthemorrhagic anemia; E03.9 Hypothyroidism, unspecified; E78.5 Hyperlipidemia, unspecified; I10 Essential (primary) hypertension; Z20.822 Contact with and (suspected) exposure to COVID-19; I25.10 Atherosclerotic heart disease of native coronary artery without angina pectoris; K57.30 Diverticulosis of large intestine without perforation or abscess without bleeding; K63.5 Polyp of colon; Z79.82 Long term (current) use of aspirin; Z79.890 Hormone replacement therapy; Z95.5 Presence of coronary angioplasty implant and graft
CPT/HCPCS: 36415; 36430; 43239; 45385; 71046; 80048; 80053; 82272; 83735; 83880; 84484; 85025; 85027; 85379; 85610; 85730; 86850; 86900; 86901; 86920; 87635; 88305; 91110; 93005; 96374; 99291

== ENCOUNTER 2021-04-14 08:47 | Inpatient (IN) | payer MEDICARE, OTHER ==
[2021-04-14] MEDS ORDERED: SODIUM CHLORIDE 0.9% 500 ML 500 ML IV STA (09:11)
--- NOTE | 2021-04-14 09:18 | ED ---
General Adult HPI - General Chief complaint: GI Bleed Stated complaint: abd pain, black stool Time Seen by Provider: 04/14/21 08:55 Source: patient, RN notes reviewed, old records reviewed Mode of arrival: ambulatory Limitations: no limitations - History of Present Illness Initial comments: This is a 80-year-old male who presents emergency Department complaining of black stools 2. Patient states he had one last night and one again this morning. Patient states that history of GI bleeds. Patient denies any blood thinners. Patient states last time this happened he had an ulcer and he was given 2 units of packed red blood cells. Patient states a little abdominal pain in the epigastric area yesterday but none currently. Patient denies any nausea vomiting or diarrhea. Patient denies any lightheadedness or dizziness. Patient states he is somewhat short of breath. Patient denies chest pain or palpitations. Patient denies any recent fever chills or cough. - Related Data Home Medications Medication Instructions Recorded Confirmed Levothyroxine Sodium [Synthroid] 200 mcg PO DAILY 02/11/18 08/14/20 Cholecalciferol [Vitamin D3 (25 25 mcg PO DAILY 08/14/20 08/14/20 Mcg = 1000 Iu)] Cyanocobalamin (Vitamin B-12) 1,000 mcg PO DAILY 08/14/20 08/14/20 [Vitamin B-12] Fexofenadine HCl [Isabelle Allergy] 180 mg PO DAILY PRN 08/14/20 08/14/20 Omeprazole [PriLOSEC] 20 mg PO DAILY PRN 08/14/20 08/14/20 Allergies Allergy/AdvReac Type Severity Reaction Status Date / Time No Known Allergies Allergy Verified 04/14/21 08:58 Review of Systems ROS Statement: Those systems with pertinent positive or pertinent negative responses have been documented in the HPI. ROS Other: All systems not noted in ROS Statement are negative. Past Medical History Past Medical History: Eye Disorder, GERD/Reflux, Hyperlipidemia, Hypertension, Thyroid Disorder Additional Past Medical History / Comment(s): "Prediabetes, watching diet, no medications." Bilateral cataracts. History of Any Multi-Drug Resistant Organisms: None Reported Past Surgical History: Cholecystectomy, Heart Catheterization With Stent Additional Past Surgical History / Comment(s): Colonoscopy. Past Anesthesia/Blood Transfusion Reactions: No Reported Reaction Date of Last Stent Placement:: 2012 Past Psychological History: No Psychological Hx Reported Smoking Status: Never smoker - Past Family History Brother(s) Family Medical History: Cancer General Exam - General Exam Comments Initial Comments: GENERAL: Patient is well-developed and well-nourished. Patient is nontoxic and well- hydrated and is in no acute distress. ENT: Neck is soft and supple. No significant lymphadenopathy is noted. Oropharynx is clear. Moist mucous membranes. Neck has full range of motion without eliciting any pain. EYES: The sclera were anicteric and conjunctiva were pink and moist. Extraocular movements were intact and pupils were equal round and reactive to light. Eyelids were unremarkable. PULMONARY: Unlabored respirations. Good breath sounds bilaterally. No audible rales rhonchi or wheezing was noted. CARDIOVASCULAR: There is a regular rate and rhythm without any murmurs gallops or rubs. ABDOMEN: Soft and nontender with normal bowel sounds. RECTAL: On rectal exam stool looked of normal color. SKIN: Skin is clear with no lesions or rashes and otherwise unremarkable. NEUROLOGIC: Patient is alert and oriented x3. Cranial nerves II through XII are grossly i ntact. Motor and sensory are also intact. Normal speech, volume and content. Symmetrical smile. MUSCULOSKELETAL: Normal extremities with adequate strength and full range of motion. LYMPHATICS: No significant lymphadenopathy is noted PSYCHIATRIC: Normal psychiatric evaluation. Limitations: no limitations Course Vital Signs 04/14/21 08:54 Temperature 98.2 F Pulse Rate 85 Respiratory 18 Rate Blood Pressure 147/92 O2 Sat by Pulse 96 Oximetry Medical Decision Making - Medical Decision Making Patient's stool is guaiac positive. I spoke with Dr. Jones and he agreed to admit the patient admitted the patient wrote admitting orders I consulted Dr. Damian. - Lab Data Result diagrams: 04/14/21 09:31 04/14/21 09:31 Lab Results 04/14/21 04/14/21 04/14/21 Range/Units 09:27 09:31 09:31 WBC 6.7 (3.8-10.6) k/uL RBC 4.59 (4.30-5.90) m/uL Hgb 12.5 L (13.0-17.5) gm/dL Hct 38.4 L (39.0-53.0) % MCV 83.6 (80.0-100.0) fL MCH 27.2 (25.0-35.0) pg MCHC 32.5 (31.0-37.0) g/dL RDW 21.2 H (11.5-15.5) % Plt Count 208 (150-450) k/uL MPV 10.1 Neutrophils % 56 % Lymphocytes % 33 % Monocytes % 5 % Eosinophils % 2 % Basophils % 0 % Neutrophils # 3.8 (1.3-7.7) k/uL Lymphocytes # 2.2 (1.0-4.8) k/uL Monocytes # 0.3 (0-1.0) k/uL Eosinophils # 0.1 (0-0.7) k/uL Basophils # 0.0 (0-0.2) k/uL Anisocytosis Moderate Microcytosis Slight PT (9.0-12.0) sec INR (<1.2) APTT (22.0-30.0) sec Sodium (137-145) mmol/L Potassium (3.5-5.1) mmol/L Chloride (98-107) mmol/L Carbon Dioxide (22-30) mmol/L Anion Gap mmol/L BUN (9-20) mg/dL Creatinine (0.66-1.25) mg/dL Est GFR (CKD-EPI)AfAm (>60 ml/min/1.73 sqM) Est GFR (CKD-EPI)NonAf (>60 ml/min/1.73 sqM) Glucose (74-99) mg/dL Calcium (8.4-10.2) mg/dL Total Bilirubin (0.2-1.3) mg/dL AST (17-59) U/L ALT (4-49) U/L Alkaline Phosphatase (38-126) U/L Troponin I (0.000-0.034) ng/mL Total Protein (6.3-8.2) g/dL Albumin (3.5-5.0) g/dL Stool Occult Blood Positive (Negative) Blood Type O Negative Blood Type Recheck O Neg Bld Type Recheck Status No Antibody Screen NEGATIVE Spec Expiration Date 04/17/2021 - 233004/14/21 04/14/21 04/14/21 Range/Units 09:31 09:31 09:31 WBC (3.8-10.6) k/uL RBC (4.30-5.90) m/uL Hgb (13.0-17.5) gm/dL Hct (39.0-53.0) % MCV (80.0-100.0) fL MCH (25.0-35.0) pg MCHC (31.0-37.0) g/dL RDW (11.5-15.5) % Plt Count (150-450) k/uL MPV Neutrophils % % Lymphocytes % % Monocytes % % Eosinophils % % Basophils % % Neutrophils # (1.3-7.7) k/uL Lymphocytes # (1.0-4.8) k/uL Monocytes # (0-1.0) k/uL Eosinophils # (0-0.7) k/uL Basophils # (0-0.2) k/uL Anisocytosis Microcytosis PT 10.0 (9.0-12.0) sec INR 0.9 (<1.2) APTT 25.9 (22.0-30.0) sec Sodium 137 (137-145) mmol/L Potassium 3.8 (3.5-5.1) mmol/L Chloride 102 (98-107) mmol/L Carbon Dioxide 26 (22-30) mmol/L Anion Gap 9 mmol/L BUN 14 (9-20) mg/dL Creatinine 1.17 (0.66-1.25) mg/dL Est GFR (CKD-EPI)AfAm 68 (>60 ml/min/1.73 sqM) Est GFR (CKD-EPI)NonAf 59 (>60 ml/min/1.73 sqM) Glucose 126 H (74-99) mg/dL Calcium 9.7 (8.4-10.2) mg/dL Total Bilirubin 0.5 (0.2-1.3) mg/dL AST 28 (17-59) U/L ALT 13 (4-49) U/L Alkaline Phosphatase 93 (38-126) U/L Troponin I <0.012 (0.000-0.034) ng/mL Total Protein 7.2 (6.3-8.2) g/dL Albumin 4.0 (3.5-5.0) g/dL Stool Occult Blood (Negative) Blood Type Blood Type Recheck Bld Type Recheck Status Antibody Screen Spec Expiration Date Disposition Clinical Impression: GI bleed Disposition: ADMITTED IP TO THIS HOSP Referrals: Solitario Otero MD [Primary Care Provider] - 1-2 days Time of Disposition: 10:54
[2021-04-14 09:54] LABS: Anisocytosis Moderate; Basophils % (A) 0 %; Eosinophils # (A) 0.1 k/uL (0-0.7); Eosinophils % (A) 2 %; HCT 38.4 % (39.0-53.0); HGB 12.5 gm/dL (13.0-17.5); Lymphocytes # (A) 2.2 k/uL (1.0-4.8); Lymphocytes % (A) 33 %; MCH 27.2 pg (25.0-35.0); MCHC 32.5 g/dL (31.0-37.0); MCV 83.6 fL (80.0-100.0); Mean Platelet Volume 10.1; Microcytosis Slight; Monocytes # (A) 0.3 k/uL (0-1.0); Monocytes % (A) 5 %; Neutrophils # (A) 3.8 k/uL (1.3-7.7); Neutrophils % (A) 56 %; Platelet Count 208 k/uL (150-450); RBC 4.59 m/uL (4.30-5.90); RDW 21.2 % (11.5-15.5); WBC 6.7 k/uL (3.8-10.6)
[2021-04-14 10:05] LABS: INR 0.9 (<1.2); Partial Thromboplastin Time 25.9 sec (22.0-30.0)
[2021-04-14 10:11] LABS: Calcium 9.7 mg/dL (8.4-10.2); Potassium 3.8 mmol/L (3.5-5.1); Total Bilirubin 0.5 mg/dL (0.2-1.3); Total Protein 7.2 g/dL (6.3-8.2)
[2021-04-14] MEDS ORDERED: SODIUM CHLORIDE 0.9% 1,000 ML IV ONE (10:54)
[2021-04-14 16:50] LABS: Anisocytosis Moderate; Basophils % (A) 0 %; Eosinophils # (A) 0.1 k/uL (0-0.7); Eosinophils % (A) 2 %; HCT 36.4 % (39.0-53.0); HGB 11.9 gm/dL (13.0-17.5); Lymphocytes # (A) 2.2 k/uL (1.0-4.8); Lymphocytes % (A) 39 %; MCH 27.3 pg (25.0-35.0); MCHC 32.7 g/dL (31.0-37.0); MCV 83.5 fL (80.0-100.0); Mean Platelet Volume 10.8; Microcytosis Slight; Monocytes # (A) 0.2 k/uL (0-1.0); Monocytes % (A) 4 %; Neutrophils # (A) 2.9 k/uL (1.3-7.7); Neutrophils % (A) 51 %; Platelet Count 220 k/uL (150-450); RBC 4.36 m/uL (4.30-5.90); RDW 21.4 % (11.5-15.5); WBC 5.7 k/uL (3.8-10.6)
[2021-04-14] MEDS: diphenhydrAMINE 50 MG CAP PO SCH ×2 (18:20→21:52)
[2021-04-14] MEDS: SUCRALFATE 1 GM TAB PO SCH ×2 (18:20→21:52)
[2021-04-14 23:00] LABS: Anisocytosis Moderate; HCT 36.5 % (39.0-53.0); HGB 11.6 gm/dL (13.0-17.5); MCH 26.9 pg (25.0-35.0); MCHC 31.7 g/dL (31.0-37.0); MCV 84.8 fL (80.0-100.0); Mean Platelet Volume 10.2; Microcytosis Slight; Platelet Count 191 k/uL (150-450); RBC 4.31 m/uL (4.30-5.90); RDW 21.1 % (11.5-15.5); WBC 5.9 k/uL (3.8-10.6)
[2021-04-14 23:28] LABS: Band Neutrophils % 3 %; Eosinophils # (M) 0.12 k/uL (0-0.7); Lymphocytes # (M) 1.71 k/uL (1.0-4.8); Monocytes # (M) 0.53 k/uL (0-1.0); Neutrophils % (M) 57 %; Nucleated Red Blood Cells 0 /100 WBC (0-0); Total Cells Counted 100
[2021-04-14 23:29] LABS: Anisocytosis (M) Present
[2021-04-15] MEDS: LEVOTHYROXINE 100 MCG TAB PO SCH (06:30)
[2021-04-15] MEDS: SUCRALFATE 1 GM TAB PO SCH ×4 (06:30→20:12)
[2021-04-15] MEDS: diphenhydrAMINE 50 MG CAP PO SCH ×4 (08:55→20:33)
[2021-04-15] MEDS: FAMOTIDINE 20 MG TAB PO SCH (08:55)
[2021-04-15] MEDS ORDERED: PANTOPRAZOLE 40 MG/10 ML VIAL IVP SCH (09:00)
--- NOTE | 2021-04-15 15:27 | P.GSCN ---
History of Present Illness Consult date: 04/15/21 History of present illness: CHIEF COMPLAINT: Hematochezia HISTORY OF PRESENT ILLNESS: The patient is a 80 year old male with past history of gastrointestinal bleed is admitted for anemia with gastrointestinal bleeding. Last hospitalization was 8 months ago in August 2020. Colonoscopy was done at that time with findings of ascending colon adenoma and sigmoid diverticulosis including upper endoscopy demonstrated no gastric ulcer. Patient has remained on iron supplements oral. patient reports black stools at home prompting presentation to the emergency room. Event has occurred this past week. He has past history of prior blood transfusions for gastrointestinal bleeding. General surgery is consulted for management of gastrointestinal bleeding. He reports his bleeding started Saturday, 5 days ago. He had abdominal epigastric cramping. He still reports dark stools. He had a dark bowel movement this afternoon. PAST MEDICAL HISTORY: See list and reviewed PAST SURGICAL HISTORY: See list and reviewed MEDICATIONS: See list and reviewed ALLERGIES: See list and reviewed SOCIAL HISTORY: See list and reviewed FAMILY HISTORY: See list and reviewed REVIEW OF ORGAN SYSTEMS: CONSTITUTIONAL: No fevers or chills. morbid obese with BMI 36.3. EYES: Denies any trouble with vision. No glasses. HEENT: No difficulties with hearing. No nosebleeds. No difficulty swallowing. RESPIRATORY: Denies pneumonia. Denies any troubles with breathing or dyspnea on exertion. CARDIOVASCULAR: Denies any chest pain, palpitations, or recent heart attacks. his hypertension including hyperlipidemia. GASTROINTESTINAL: As above. Prior episodes of gastrointestinal bleeding with ulcers including diverticulosis and adenoma GENITOURINARY: Denies any blood in urine or increased urinary frequency. NEUROLOGICAL: Denies any numbness or tingling along the distal extremities. No seizure disorders or headaches. MUSCULOSKELETAL: Denies any back pain, stiffness or joint arthritis. SKIN: No current skin cancer. No rash. PSYCHIATRIC: Denies current depression or suicidal thoughts. ENDOCRINE: has hypothyroidism. Denies any blood sugar glucose intolerance. HEME/LYMPHATIC: Denies any lumps and bumps around the neck. No recent deep venous thrombosis. ALLERGY/IMMUNOLOGY: No immunoglobulin therapy. No immune deficiencies. BREAST: Denies current breast lumps, pain or nipple discharge. PHYSICAL EXAM: VITALS: Reviewed CONSTITUTIONAL: Well developed and in no acute distress. EYES: Conjuctivae without sclera icterus. Extraocular movements grossly i ntact. HEAD, EARS, NOSE, THROAT: Moist buccal mucosa. Head is atraumatic, normocephalic. Hears conversational speech. No nasal drainage. NECK: Supple. No JV distention. No thyroidomegaly. RESPIRATORY: Non-labored respirations and equal bilateral excursions. No gross wheezes. CARDIOVASCULAR: Regular rate and rhythm. Extremities without moderate edema. Palpable 2+ radial pulses. ABDOMEN: soft. No peritonitis. LYMPH: No neck lymphadenopathy. MUSCULOSKELETAL: Nail and fingers with good capillary refill. SKIN: Warm and well perfused with good skin turgor. NEUROLOGIC: Cranial nerves II through XII grossly intact. No focal or lateralizing signs. PSYCH: Appropriate affect. Alert and oriented to person, place and time. Displays appropriate insight. CLINCAL LABS: Reviewed. Hemoglobin on admission 12.5 down to 11.6 with anemia. Hemoccult-positive IMAGING: no images available RECORDS: Colonoscopy report August 2020 reviewed demonstrating moderate sigmoid diverticulosis with one centimeter ascending adenoma resected with hot snare EGD report from August 2020 reviewed with gastric ulcer, 5 mm Pathology report from 2020 demonstrating acute gastritis without H. pylori. ASSESSMENT: 1. Gastrointestinal bleeding with positive Hemoccult test 2. Anemia 3. History of gastric ulcers 4. History of colon adenoma 5. Diverticulosis of the colon 6. Morbid obesity due to excess calories, BMI 36.3 7. Iron deficiency anemia PLAN: 1. Recommend supportive care with IV fluid hydration 2. Recheck iron panel and may benefit from iron infusion 3. Protonix 40 mg twice a day for pre-existing history of gastric ulcer 4. Upper endoscopy for personal history of gastric ulcer 5. Add carafate Thank you for this kind consultation. Past Medical History Past Medical History: Eye Disorder, GERD/Reflux, Hyperlipidemia, Hypertension, Thyroid Disorder Additional Past Medical History / Comment(s): "Prediabetes, watching diet, no medications." Bilateral cataracts. History of Any Multi-Drug Resistant Organisms: None Reported Past Surgical History: Cholecystectomy, Heart Catheterization With Stent Additional Past Surgical History / Comment(s): Colonoscopy. Past Anesthesia/Blood Transfusion Reactions: No Reported Reaction Date of Last Stent Placement:: 2012 Past Psychological History: No Psychological Hx Reported Smoking Status: Never smoker Past Alcohol Use History: Rare Past Drug Use History: None Reported - Past Family History Brother(s) Family Medical History: Cancer Medications and Allergies Home Medications Medication Instructions Recorded Confirmed Type Omeprazole [PriLOSEC] 20 mg PO DAILY PRN 08/14/20 04/14/21 History Acetaminophen/Diphenhydramine 1 tab PO HS PRN 04/14/21 04/14/21 History [Tylenol PM 500-25mg] Ferrous Sulfate [Feosol] 325 mg PO DAILY 04/14/21 04/14/21 History Levocetirizine Dihydrochloride 5 mg PO DAILY PRN 04/14/21 04/14/21 History [Xyzal] Allergies Allergy/AdvReac Type Severity Reaction Status Date / Time No Known Allergies Allergy Verified 04/14/21 11:36 Surgical - Exam Vital Signs Temp Pulse Resp BP Pulse Ox 98.2 F 85 18 147/92 96 04/14/21 08:54 04/14/21 08:54 04/14/21 08:54 04/14/21 08:54 04/14/21 08:54 Results - Labs 04/14/21 22:08 04/14/21 09:31 Abnormal Lab Results - Last 24 Hours (Table) 04/14/21 04/14/21 Range/Units 16:12 22:08 Hgb 11.9 L 11.6 L (13.0-17.5) gm/dL Hct 36.4 L 36.5 L (39.0-53.0) % RDW 21.4 H 21.1 H (11.5-15.5) % Assessment and Plan (1) Morbid obesity due to excess calories Current Visit: Yes Status: Acute Code(s): E66.01 - MORBID (SEVERE) OBESITY DUE TO EXCESS CALORIES SNOMED Code(s): 000461568 (2) BMI 36.0-36.9,adult Current Visit: Yes Status: Acute Code(s): Z68.36 - BODY MASS INDEX [BMI] 36.0-36.9, ADULT SNOMED Code(s): 521058700 (3) History of gastric ulcer Current Visit: Yes Status: Acute Code(s): Z87.11 - PERSONAL HISTORY OF PEPTIC ULCER DISEASE SNOMED Code(s): 209701877 (4) Sigmoid diverticulosis Current Visit: Yes Status: Acute Code(s): K57.30 - DVRTCLOS OF LG INT W/O PERFORATION OR ABSCESS W/O BLEEDING SNOMED Code(s): 132732017 (5) History of adenomatous polyp of colon Current Visit: Yes Status: Acute Code(s): Z86.010 - PERSONAL HISTORY OF COLONIC POLYPS SNOMED Code(s): 579881544 (6) GI bleed Current Visit: Yes Status: Acute Code(s): K92.2 - GASTROINTESTINAL HEMORRHAGE, UNSPECIFIED SNOMED Code(s): 50766646 (7) Hypochromic-microcytic anemia Current Visit: No Status: Acute Code(s): D50.9 - IRON DEFICIENCY ANEMIA, UNSPECIFIED SNOMED Code(s): 84430409 (8) Hypothyroid Current Visit: No Status: Acute Code(s): E03.9 - HYPOTHYROIDISM, UNSPECIFIED SNOMED Code(s): 12214040
[2021-04-15] MEDS: PANTOPRAZOLE 40 MG/10 ML VIAL IVP SCH (20:12)
[2021-04-16] MEDS: LEVOTHYROXINE 100 MCG TAB PO SCH (06:10)
[2021-04-16] MEDS: SUCRALFATE 1 GM TAB PO SCH ×4 (06:11→19:53)
[2021-04-16] MEDS: diphenhydrAMINE 50 MG CAP PO SCH ×4 (08:55→19:53)
[2021-04-16] MEDS: FAMOTIDINE 20 MG TAB PO SCH (08:55)
[2021-04-16] MEDS: PANTOPRAZOLE 40 MG/10 ML VIAL IVP SCH ×2 (08:55→19:53)
--- NOTE | 2021-04-16 09:43 | P.PN ---
Subjective Progress Note Date: 04/16/21 CHIEF COMPLAINT: Hematochezia HISTORY OF PRESENT ILLNESS: The patient is a 80 year old male with past history of gastrointestinal bleed is admitted for anemia with gastrointestinal bleeding. Yesterday afternoon, he had blood in his stools. No further bowel movements since yesterday. He denies current abdominal pain. REVIEW OF ORGAN SYSTEMS: No chest pain. No fevers or chills. No shortness of breath. PHYSICAL EXAM: VITALS: Reviewed CONSTITUTIONAL: Well developed and in no acute distress. EYES: Conjuctivae without sclera icterus. Extraocular movements grossly intact. HEAD, EARS, NOSE, THROAT: Moist buccal mucosa. Head is atraumatic, normocephalic. Hears conversational speech. No nasal drainage. NECK: Supple. No JV distention. No thyroidomegaly. RESPIRATORY: Non-labored respirations and equal bilateral excursions. No gross wheezes. CARDIOVASCULAR: Palpable 2+ radial pulses. ABDOMEN: Protuberant, non-tender. MUSCULOSKELETAL: Nail and fingers with good capillary refill. SKIN: Warm and well perfused with good skin turgor. NEUROLOGIC: Cranial nerves II through XII grossly intact. No focal or lateralizing signs. PSYCH: Appropriate affect. Alert and oriented to person, place and time. Displays appropriate insight. CLINCAL LABS: Reviewed. Hemoglobin on admission 12.5 down to 11.6 with anemia. Todays Hgb pending ASSESSMENT: 1. Gastrointestinal bleeding with positive Hemoccult test 2. Anemia 3. History of gastric ulcers 4. History of colon adenoma 5. Diverticulosis of the colon 6. Morbid obesity due to excess calories, BMI 36.3 7. Iron deficiency anemia PLAN: 1. CBC ordered for today. 2. EGD for tomorrow. 3. Carafate and protonix in the interim. 4. Recommend cardiac risk assessment Objective - Vital Signs Vital signs: Vital Signs Temp 98.6 F 04/16/21 03:55 Pulse 85 04/16/21 03:55 Resp 18 04/16/21 03:55 BP 161/99 04/16/21 03:55 Pulse Ox 93 L 04/16/21 03:55 Intake & Output 04/15/21 04/16/21 04/16/21 18:59 06:59 18:59 Intake Total 1800 Balance 1800 Weight 118.2 kg Intake: Oral 1800 Other: Voiding Method Toilet # Voids 2 2 # Bowel Movements 1 - Labs CBC & Chem 7: 04/14/21 22:08 04/14/21 09:31 Assessment and Plan (1) Morbid obesity due to excess calories Current Visit: Yes Status: Acute Code(s): E66.01 - MORBID (SEVERE) OBESITY DUE TO EXCESS CALORIES SNOMED Code(s): 132260109 (2) BMI 36.0-36.9,adult Current Visit: Yes Status: Acute Code(s): Z68.36 - BODY MASS INDEX [BMI] 36.0-36.9, ADULT SNOMED Code(s): 394369889 (3) History of gastric ulcer Current Visit: Yes Status: Acute Code(s): Z87.11 - PERSONAL HISTORY OF PEPTIC ULCER DISEASE SNOMED Code(s): 352320556 (4) Sigmoid diverticulosis Current Visit: Yes Status: Acute Code(s): K57.30 - DVRTCLOS OF LG INT W/O PERFORATION OR ABSCESS W/O BLEEDING SNOMED Code(s): 088012907 (5) History of adenomatous polyp of colon Current Visit: Yes Status: Acute Code(s): Z86.010 - PERSONAL HISTORY OF COLONIC POLYPS SNOMED Code(s): 321514484 (6) GI bleed Current Visit: Yes Status: Acute Code(s): K92.2 - GASTROINTESTINAL HEMORRHAGE, UNSPECIFIED SNOMED Code(s): 89738187 (7) Hypochromic-microcytic anemia Current Visit: No Status: Acute Code(s): D50.9 - IRON DEFICIENCY ANEMIA, UNSPECIFIED SNOMED Code(s): 72950988 (8) Hypothyroid Current Visit: No Status: Acute Code(s): E03.9 - HYPOTHYROIDISM, UNSPECIFIED SNOMED Code(s): 28924851
[2021-04-16 10:30] LABS: Anisocytosis Moderate; Basophils % (A) 1 %; Eosinophils # (A) 0.2 k/uL (0-0.7); Eosinophils % (A) 3 %; HCT 40.3 % (39.0-53.0); HGB 12.8 gm/dL (13.0-17.5); Lymphocytes # (A) 2.1 k/uL (1.0-4.8); Lymphocytes % (A) 31 %; MCH 27.2 pg (25.0-35.0); MCHC 31.9 g/dL (31.0-37.0); MCV 85.3 fL (80.0-100.0); Microcytosis Slight; Monocytes # (A) 0.3 k/uL (0-1.0); Monocytes % (A) 5 %; Neutrophils # (A) 3.9 k/uL (1.3-7.7); Neutrophils % (A) 58 %; Platelet Count 228 k/uL (150-450); RBC 4.72 m/uL (4.30-5.90); WBC 6.7 k/uL (3.8-10.6)
--- NOTE | 2021-04-16 16:47 | CONS ---
JULIO CÉSAR Donaldson is a 80-year-old gentleman with history of coronary artery disease, status post prior angioplasty, and hypothyroidism who is admitted to hospital with black stools. He has had GI bleeds prior, had EGD, colonoscopy and capsule endoscopy. The patient also has mild abdominal discomfort. I have been consulted because patient had bradycardia last night when he was sleeping, and the nurse thought he may have sleep apnea. He does not have any bradycardia during daytime. Blood pressure is normal and he does not have any cardiac symptoms. If he needs an EGD, he can safely proceed with it. PAST MEDICAL HISTORY: Significant for GI bleed, CAD, status post angioplasty. MEDICATIONS: Medications at home included Prilosec, iron, Xyzal. ALLERGIES: NO KNOWN DRUG ALLERGIES. FAMILY HISTORY: Negative for premature coronary artery disease. SOCIAL HISTORY: Negative for current smoking, EtOH abuse or drug abuse. REVIEW OF SYSTEMS: HEENT is unremarkable. CARDIAC: As described above. RESPIRATORY: Negative. GI: Negative. GENITOURINARY: Negative. ALLERGY/IMMUNOLOGY: Negative. SKIN: Negative. MUSCULOSKELETAL: Significant for arthritis. PSYCHOSOCIAL: Negative. ENDOCRINE: Negative. DERMATOLOGY: Negative. CONSTITUTIONAL: Negative. ONCOLOGICAL: Negative. Rest of the system review is not relevant. PHYSICAL EXAMINATION: Comfortable at rest. Vital signs are stable. Chest exam reveals good air entry bilaterally. Heart exam reveals first and second heart sounds and a systolic murmur at the left lower sternal border. Abdomen is soft. Examination of extremities did not reveal any edema. Peripheral pulses are felt. ASSESSMENT: 1. Sinus bradycardia; could be due to sleep apnea. This can be evaluated further in the outpatient setting after being discharged home. 2. Coronary artery disease, status post angioplasty. 3. Preoperative cardiac evaluation. The patient can proceed with EGD, which is a low- risk surgery, and patient is not having any cardiac symptoms. Thank you for letting us to participate in the care of this pleasant gentleman. MMODL / IJN: [id number] /
[2021-04-17] MEDS: LEVOTHYROXINE 100 MCG TAB PO SCH (06:04)
[2021-04-17] MEDS: SUCRALFATE 1 GM TAB PO SCH ×4 (06:04→19:59)
[2021-04-17] MEDS: PANTOPRAZOLE 40 MG/10 ML VIAL IVP SCH ×2 (08:39→19:59)
[2021-04-17] MEDS: FAMOTIDINE 20 MG TAB PO SCH (08:39)
[2021-04-17] MEDS: diphenhydrAMINE 50 MG CAP PO SCH ×4 (08:39→23:15)
[2021-04-17] MEDS ORDERED: LIDOCAINE 1% INJ 10MG/ML (20 ML MDV) ONE (10:35)
[2021-04-17] MEDS ORDERED: PROPOFOL 10 MG/ML 20 ML VIAL IV ONE (10:35)
[2021-04-17] MEDS ORDERED: LACTATED RINGERS 1,000 ML IV ONE (10:44)
--- NOTE | 2021-04-17 10:58 | P.PCN ---
Date of Procedure: 04/17/21 Description of Procedure: PREOPERATIVE DIAGNOSIS: Gastrointestinal bleeding History of gastric ulcer POSTOPERATIVE DIAGNOSIS: Gastroduodenal ulcer without active bleeding Gastritis OPERATION: Esophagogastroduodenoscopy with biopsies along antrum. SURGEON: Prerna Ambrosio MD ANESTHESIA: MAC. INDICATIONS: The patient is a 80-year-old male with history of gastric ulcer and recent gastrointestinal bleeding. Benefits and risks of the procedure were described. Informed consent was obtained. DESCRIPTION: The patient was brought into the endoscopy suite and laid in the left lateral decubitus position. An Olympus gastroscope was passed along the posterior oropharynx down to the distal esophagus where the squamocolumnar junction was encountered at 41 cm from the incisors. The stomach was entered and no bile reflux was found. Additional findings are listed below. Biopsies with cold forceps were obtained of the antrum. The first through third portion of the duodenum was examined and the presence of ulcer along the bulb, 6 mm without active bleeding. Presence of gastritis identified along the antrum with biopsies obtained. Retroflexion of the scope confirmed Hill grade 3 lower esophageal valve. The squamocolumnar junction demonstrated LA grade B erosive esophagitis. The stomach was desufflated. The patient tolerated the procedure well. FINDINGS: Squamocolumnar junction 41 cm from the incisors. Diaphragmatic hiatus at 41 cm. Hill grade lower esophageal valve. LA grade B erosive esophagitis. Duodenal bulb ulcer less than 6 mm without active bleeding Chronic gastritis RECOMMENDATIONS: 1. Continue Protonix 40 mg twice a day 2. Continue Carafate 1 g twice a day 3. Repeat upper endoscopy in one month
--- NOTE | 2021-04-17 17:10 | ECHOF ---
Referral Reason:Abnormal EKG MEASUREMENTS -------- HEIGHT: 157.5 cm WEIGHT: 120.2 kg BP: IVSd: 1.5 cm (0.6 - 1.1) LVIDd: 4.4 cm (3.9 - 5.3) LVPWd: 1.6 cm (0.6 - 1.1) EDV(Teich): 87 ml IVSs: 1.7 cm LVIDs: 2.9 cm LVPWs: 2.4 cm %IVS Thck: 12 % ESV(Teich): 32 ml EF(Teich): 63 % %FS: 34 % SV(Teich): 54 ml LALs A4C: 5.2 cm LAAs A4C: 17.8 cm LAESV A-L A4C: 51 ml LAESV MOD A4C: 50 ml LALs A2C: 5.8 cm LAAs A2C: 23.2 cm LAESV A-L A2C: 79 ml LAESV MOD A2C: 75 ml LAESV(A-L): 67 ml LAESV Index (A-L): 31.14 ml/m Ao Diam: 3.9 cm (2.0 - 3.7) LA Diam: 4.5 cm (2.7 - 3.8) AV Cusp: 2.3 cm (1.5 - 2.6) EPSS: 0.2 cm MV E Issac: 0.42 m/s MV DecT: 280 ms MV Dec Comal: 1.5 m/s MV A Issac: 0.64 m/s MV E/A Ratio: 0.66 MV PHT: 81 ms TR Vmax: 2.15 m/s TR maxP.43 mmHg RAP: 5.00 mmHg RVSP: 23.43 mmHg MV EF SLOPE: 60.68 mm/s (70 - 150) MV EXCURSION: 17.96 mm (> 18.000) FINDINGS -------- Sinus rhythm. Morbid Obesity The left ventricular size is normal. There is moderate concentric left ventricular hypertrophy. O verall left ventricular systolic function is low-normal with, an EF between 50 - 55 %. The right ventricle is normal in size. LA is midly dilated 29-33ml/m2. The right atrial size is normal. The aortic valve is trileaflet, and appears structurally normal. No aortic stenosis or regurgitation. Mild mitral regurgitation is present. Mild tricuspid regurgitation present. Right ventricular systolic pressure is normal at < 35 mmHg. The pulmonic valve was not well visualized. Echo free space indicative of a pericardial fat pad. CONCLUSIONS -------- 1. The left ventricular size is normal. 2. There is moderate concentric left ventricular hypertrophy. 3. Overall left ventricular systolic function is low-normal with, an EF between 50 - 55 %. 4. The right ventricle is normal in size. 5. LA is midly dilated 29-33ml/m2. 6. The right atrial size is normal. 7. The aortic valve is trileaflet, and appears structurally normal. No aortic stenosis or regurgitati on. 8. Mild mitral regurgitation is present. 9. Mild tricuspid regurgitation present. 10. The pulmonic valve was not well visualized. 11. Echo free space indicative of a pericardial fat pad. WAYBILL CLERK: Lilian Hope RDCS
--- NOTE | 2021-04-17 18:59 | HP ---
HISTORY AND PHYSICAL CHIEF COMPLAINT: 2-3 days of melena. HISTORY OF PRESENT ILLNESS: This is another admission for this 80-year-old white male who has had a history of prior upper gastrointestinal hemorrhage from gastric ulcer disease. He also has a history of hypothyroidism, hypertension. About 2 or 3 days before coming in, he noticed dark stool, but he felt fine. He did not have another one immediately, but then on the day of admission, he did and he came in. In the emergency room, vital signs are stable. His hemoglobin was still normal. He had no hematemesis or abdominal pain. REVIEW OF SYSTEMS: He had not had any other complaints. Past medical history, family history and personal and social histories are otherwise unremarkable. He has been on iron 3 times a day and he takes Prilosec 20 mg once a day, thyroid 0.2 mg daily, vitamin D3, and he uses nitroglycerin p.r.n. He has not had coronary artery issue in the past. He is a nonsmoker and does not drink. PHYSICAL EXAMINATION: Blood pressure is 135/82 with a pulse of 76, respirations of 20. He is afebrile. In general he appeared to be pale and in no acute distress. Skin was dry. Lymph nodes not enlarged. Head, ears, eyes, nose, mouth and throat were normal. Chest is clear to auscultation and percussion. Cardiac exam demonstrated normal sinus rhythm and no murmurs or extra sounds. The abdomen is protuberant, soft and nontender without any visceromegaly or masses. Bowel sounds are present. Extremities normal. Neurologically he is intact. IMPRESSION: He is admitted to the hospital with diagnoses: 1. Recurrent upper gastrointestinal hemorrhage. 2. Hypothyroidism. PLAN: 1. Bedrest. 2. IV fluids. 3. Monitor vital signs and hemoglobin. 4. Surgical consult for upper GI endoscopy. MMODL / IJN: [id number] /
[2021-04-18 04:16] VITALS: TEMP 97.5
[2021-04-18] MEDS: LEVOTHYROXINE 100 MCG TAB PO SCH (06:15)
[2021-04-18] MEDS: SUCRALFATE 1 GM TAB PO SCH ×2 (06:16→12:12)
[2021-04-18] MEDS: FAMOTIDINE 20 MG TAB PO SCH (08:39)
[2021-04-18] MEDS: PANTOPRAZOLE 40 MG/10 ML VIAL IVP SCH (08:39)
[2021-04-18] MEDS: diphenhydrAMINE 50 MG CAP PO SCH ×2 (08:39→12:12)
[2021-04-18 08:44] VITALS: RESP 16
--- NOTE | 2021-04-18 12:12 | PN ---
PROGRESS NOTE DATE OF SERVICE: 04/18/2021. CHIEF COMPLAINT: Upper GI bleed. HISTORY OF PRESENT ILLNESS: This gentleman is doing well. He has had no further bleeding. He was scoped yesterday, but he is not sure what was found. He remembers being told that he did not have an ulcer, but there were lesions in the stomach. I cannot access the Internet to obtain the operative reports. PHYSICAL EXAMINATION: He remains slightly pale. Vital signs: Normal. Chest is clear. Cardiac exam is normal. The abdomen is protuberant, soft and nontender with normal bowel sounds. Extremities are normal. IMPRESSION: Upper gastrointestinal bleed, source unknown. PLAN: 1. Increase activity and diet. 2. Try to obtain results of gastroscopy. He may be able to go home today. MMODL / IJN: [id number] /
[2021-04-18 12:50] VITALS: BP 110/72; PULSE 86
--- NOTE | 2021-04-18 16:27 | PN ---
PROGRESS NOTE CHIEF COMPLAINT: Upper GI bleed. HISTORY OF PRESENT ILLNESS: This gentleman is not apparently had any further bleeding. His hemoglobin has dropped only slightly to around 11. He seems a little bit lethargic, however. PHYSICAL EXAMINATION: He is slightly pale. Chest is clear. Cardiac exam is normal. Abdomen is soft, nontender and it is protuberant. IMPRESSION: 1. Upper GI bleed. 2. History of peptic ulcer disease in the past. 3. Hypothyroidism. PLAN: Wait for further evaluation by General Surgery. MMODL / IJN: [id number] /
--- NOTE | 2021-04-18 16:33 | PN ---
PROGRESS NOTE DATE OF SERVICE: 04/17/2021. CHIEF COMPLAINT: Upper GI bleed. HISTORY: This gentleman has been stable without bleeding and he is going for endoscopy today. PHYSICAL EXAM: He remains pale. Chest is clear. Cardiac exam is normal sinus rhythm and the abdomen is soft and nontender. IMPRESSION: Upper gastrointestinal bleed. PLAN: Endoscopy today. MMODL / IJN: [id number] /
--- NOTE | 2021-04-18 16:33 | PN ---
PROGRESS NOTE DATE OF SERVICE: 04/16/2021 CHIEF COMPLAINT: Upper GI bleed. HISTORY: This gentleman has been stable. There has been no further bleeding. PHYSICAL EXAM: Chest is clear. Cardiac exam is normal. The abdomen is soft and protuberant. There are no masses. IMPRESSION: 1. Upper gastrointestinal bleed. 2. History of peptic ulcer disease with upper gastrointestinal bleed. 3. Hypertension. 4. Hypothyroidism. PLAN: Surgery is planning on doing a scope tomorrow. MMODL / IJN: [id number] /
--- NOTE | 2021-04-18 17:30 | DS ---
DISCHARGE SUMMARY CHIEF COMPLAINT: Upper GI bleed with melena. HISTORY OF PRESENT ILLNESS AND PHYSICAL EXAMINATION: Details of this man's history and physical can be found in the initial workup. LABORATORY STUDIES: While he was in the hospital, he had laboratory studies, details of which can be found in the laboratory section of his chart. COURSE IN THE HOSPITAL: After admission, he was placed on bedrest, started on intravenous fluids and hemoglobin was monitored. He had no further bleeding while he was in the hospital. He was seen by Surgery and taken for an upper GI endoscopy, which demonstrated esophagitis, gastritis, and duodenal ulcer. He had no problems postoperatively and he was felt stable enough to go home on the . He will go home on his usual activity, diet and medication as well as Pepcid 20 mg twice a day, Protonix 40 mg twice a day and Carafate 1 g 4 times a day. He will be seen in the office in several days. FINAL DIAGNOSES: 1. Upper gastrointestinal hemorrhage. 2. History of chronic anemia. 3. History of hypertension. 4. History of hypothyroidism. OPERATIONS: Endoscopy. CONSULTATIONS: General surgery. He is improved. MMODL / IJN: [id number] /
[2021-04-19] MEDS ORDERED: PANTOPRAZOLE 40 MG TABLET PO SCH (07:30)
== END 2021-04-18 16:41 | disposition home or self-care (01) | DRG 379 ==
LOC: EC 08:47 → 3SCARD 10:54
PROVIDERS: ADMIT Family Medicine; ATTEND Family Medicine
PROC: 0DB98ZX Excision of Duodenum, Via Natural or Artificial Opening Endoscopic, Diagnostic (ICD-10-PCS; principal; 2021-04-14)
PROC: 0DB78ZX Excision of Stomach, Pylorus, Via Natural or Artificial Opening Endoscopic, Diagnostic (ICD-10-PCS; 2021-04-14)
DX: K26.4 Chronic or unspecified duodenal ulcer with hemorrhage (principal); D50.9 Iron deficiency anemia, unspecified; K22.11 Ulcer of esophagus with bleeding; Z20.822 Contact with and (suspected) exposure to COVID-19; E03.9 Hypothyroidism, unspecified; E66.01 Morbid (severe) obesity due to excess calories; E78.5 Hyperlipidemia, unspecified; I10 Essential (primary) hypertension; I25.10 Atherosclerotic heart disease of native coronary artery without angina pectoris; Z98.61 Coronary angioplasty status; Z86.010 Personal history of colon polyps; Z79.890 Hormone replacement therapy; K29.70 Gastritis, unspecified, without bleeding; K57.30 Diverticulosis of large intestine without perforation or abscess without bleeding; K63.5 Polyp of colon; Z68.36 Body mass index [BMI] 36.0-36.9, adult; D50.0 Iron deficiency anemia secondary to blood loss (chronic); K21.9 Gastro-esophageal reflux disease without esophagitis
CPT/HCPCS: 36415; 43239; 80053; 82272; 84484; 85025; 85610; 85730; 86850; 86900; 86901; 87635; 88305; 93306; 94760; 96360; 99285

== ENCOUNTER 2021-10-07 14:35 | Inpatient (IN) | payer MEDICARE, OTHER ==
--- NOTE | 2021-10-07 15:22 | ED ---
General Adult HPI - General Chief complaint: Recheck/Abnormal Lab/Rx Stated complaint: Irregular labs-sent by Dr. Otero Time Seen by Provider: 10/07/21 15:18 Source: patient Mode of arrival: wheelchair Limitations: no limitations - History of Present Illness Initial comments: Patient presents to the ED with his niece for evaluation. Patient states that he had a general checkup at his primary care provider's office yesterday, and he had some blood work drawn at that time. Patient states that he was called by his primary care provider's office today and told that his hemoglobin was low and that he should go to the ER. Patient's hemoglobin was reportedly 6.3 yesterday. Patient admits to feeling tired and mildly dyspneic over the past week or so. Patient also admits to having 2 dark bowel movements over the past week. Patient states that he has a history of anemia. Patient denies anticoagulant medication use. Patient denies having any pain, fever or chills, headache, focal neuro deficit, chest pain or pressure, cough or cold symptoms, palpitations, dizziness, abdominal pain, nausea/vomiting, diarrhea/constipation, hematochezia, hematuria/dysuria/urinary symptoms, decreased urine output, leg or calf swelling or pain or any other symptoms or complaints. Patient states that he is fully vaccinated for Covid. - Related Data Home Medications Medication Instructions Recorded Confirmed Acetaminophen/Diphenhydramine 1 tab PO HS PRN 04/14/21 04/14/21 [Tylenol PM 500-25mg] Ferrous Sulfate [Iron (65 MG 325 mg PO DAILY 04/14/21 04/14/21 Elemental)] Levocetirizine Dihydrochloride 5 mg PO DAILY PRN 04/14/21 04/14/21 [Xyzal] Previous Rx's Medication Instructions Recorded Famotidine [Pepcid] 20 mg PO DAILY #30 tab 04/18/21 Levothyroxine Sodium [Synthroid] 200 mcg PO DAILY@0630 #30 tab 04/18/21 Omeprazole [PriLOSEC] 20 mg PO AC-BID PRN #60 cap 04/18/21 Pantoprazole [Protonix] 40 mg PO AC-BRKFST #60 tab 04/18/21 Sucralfate [Carafate] 1 gm PO ACHS #120 tab 04/18/21 Allergies Allergy/AdvReac Type Severity Reaction Status Date / Time No Known Allergies Allergy Verified 04/14/21 11:36 Review of Systems ROS Statement: Those systems with pertinent positive or pertinent negative responses have been documented in the HPI. ROS Other: All systems not noted in ROS Statement are negative. Past Medical History Past Medical History: Eye Disorder, GERD/Reflux, Hyperlipidemia, Hypertension, Thyroid Disorder Additional Past Medical History / Comment(s): "Prediabetes, watching diet, no medications." Bilateral cataracts. History of Any Multi-Drug Resistant Organisms: None Reported Past Surgical History: Cholecystectomy, Heart Catheterization With Stent Additional Past Surgical History / Comment(s): Colonoscopy. Past Anesthesia/Blood Transfusion Reactions: No Reported Reaction Date of Last Stent Placement:: 2012 Past Psychological History: No Psychological Hx Reported Smoking Status: Never smoker Past Alcohol Use History: None Reported Past Drug Use History: None Reported - Past Family History Brother(s) Family Medical History: Cancer General Exam Limitations: no limitations General appearance: alert, in no apparent distress Head exam: Present: atraumatic, normocephalic Eye exam: Present: normal appearance, EOMI ENT exam: Present: mucous membranes moist Neck exam: Present: other (Trachea is midline) Respiratory exam: Present: normal lung sounds bilaterally. Absent: respiratory distress, wheezes, rales, rhonchi, stridor Cardiovascular Exam: Present: regular rate, normal rhythm, normal heart sounds, other (Normal radial pulses bilaterally) GI/Abdominal exam: Present: soft, normal bowel sounds. Absent: distended, tenderness, guarding Rectal exam: Present: normal rectal tone, other (Brown stool was retrieved from rectal vault on digital exam and sent for Hemoccult testing). Absent: tenderness Extremities exam: Present: other (Negative Homans sign bilaterally). Absent: tenderness, pedal edema, calf tenderness Neurological exam: Present: alert, oriented X3. Absent: motor sensory deficit Psychiatric exam: Present: normal affect, normal mood Skin exam: Present: warm, dry, intact, normal color Course Vital Signs 10/07/21 10/07/21 10/07/21 14:54 15:22 17:00 Temperature 97 F L Pulse Rate 101 H 90 86 Respiratory 18 18 18 Rate Blood Pressure 106/60 112/74 116/67 O2 Sat by Pulse 100 98 100 Oximetry 10/07/21 10/07/21 10/07/21 17:38 17:44 17:54 Temperature 98.2 F 98.0 F 97.8 F Pulse Rate 86 82 Respiratory 18 18 18 Rate Blood Pressure 117/73 109/71 115/67 O2 Sat by Pulse 99 98 Oximetry - Reevaluation(s) Reevaluation #1: 10/07/21 18:10 Case, H&P, test results and ED management thus far were discussed with Dr. Martínez (general surgery). He recommends admitting the patient to his medical service, and he states that he will see the patient in consultation for his GI bleed. He has no further recommendations at this time. 10/07/21 18:18 Case, H&P, test results, ED management and my discussion with Dr. Martínez as above were discussed with Dr. Otero. He accepts hospital admission. He has no further recommendations at this time. 10/07/21 18:27 Patient denies development of any new symptoms while in the ED. Patient remains alert and breathing comfortably. Patient remains hemodynamic stable. Patient is currently receiving packed RBC transfusion. Patient is aware of his test results and my discussions as above. Patient agrees with hospital admission at this time. EKG Findings - EKG Comments: EKG Findings:: Normal sinus rhythm, ventricular rate of 88 bpm, no ectopy, normal DE and QRS intervals, normal QT interval, normal axis, nonspecific T-wave abnormality Medical Decision Making - Medical Decision Making Patient reports having a couple of bouts of melena this week, and his stool is Hemoccult-positive. I suspect that the patient's anemia is likely secondary to upper GI bleeding. Patient has been hemodynamically stable in the ED. Patient has been hydrated with IV fluids and transfused with packed RBCs in the ED. Patient was also given a dose of IV Protonix in the ED. Dr. Martínez was contacted, and he agrees to see the patient in consultation for his GI bleed. Dr. Otero has accepted hospital admission. - Lab Data Result diagrams: 10/07/21 15:40 10/07/21 15:31 Lab Results 10/07/21 10/07/21 10/07/21 Range/Units 15:31 15:31 15:31 WBC (3.8-10.6) k/uL RBC (4.30-5.90) m/uL Hgb (13.0-17.5) gm/dL Hct (39.0-53.0) % MCV (80.0-100.0) fL MCH (25.0-35.0) pg MCHC (31.0-37.0) g/dL RDW (11.5-15.5) % Plt Count (150-450) k/uL MPV Neutrophils % Neutrophils % (Manual) % Lymphocytes % Lymphocytes % (Manual) % Monocytes % Monocytes % (Manual) % Eosinophils % Eosinophils % (Manual) % Basophils % Basophils % (Manual) % Metamyelocytes % % Neutrophils # Neutrophils # (Manual) (1.3-7.7) k/uL Lymphocytes # Lymphocytes # (Manual) (1.0-4.8) k/uL Monocytes # Monocytes # (Manual) (0-1.0) k/uL Eosinophils # Eosinophils # (Manual) (0-0.7) k/uL Basophils # Basophils # (Manual) (0-0.2) k/uL Metamyelocytes # (Man) (0) k/uL Nucleated RBCs (0-0) /100 WBC Manual Slide Review Hypochromasia Poikilocytosis Anisocytosis Microcytosis Target Cells PT (9.0-12.0) sec INR (<1.2) APTT (22.0-30.0) sec Sodium 137 (137-145) mmol/L Potassium 4.3 (3.5-5.1) mmol/L Chloride 105 (98-107) mmol/L Carbon Dioxide 22 (22-30) mmol/L Anion Gap 10 mmol/L BUN 23 H (9-20) mg/dL Creatinine 0.93 (0.66-1.25) mg/dL Est GFR (CKD-EPI)AfAm 90 (>60 ml/min/1.73 sqM) Est GFR (CKD-EPI)NonAf 78 (>60 ml/min/1.73 sqM) Glucose 130 H (74-99) mg/dL Plasma Lactic Acid Chuck 2.6 H* (0.7-2.0) mmol/L Calcium 8.7 (8.4-10.2) mg/dL Total Bilirubin 0.4 (0.2-1.3) mg/dL AST 18 (17-59) U/L ALT 10 (4-49) U/L Alkaline Phosphatase 110 (38-126) U/L Troponin I <0.012 (0.000-0.034) ng/mL Total Protein 6.9 (6.3-8.2) g/dL Albumin 3.9 (3.5-5.0) g/dL Lipase 31 (23-300) U/L Stool Occult Blood (Negative) Blood Type Blood Type Recheck Bld Type Recheck Status Antibody Screen Crossmatch Spec Expiration Date 10/07/21 10/07/21 10/07/21 Range/Units 15:40 15:40 15:40 WBC 7.4 (3.8-10.6) k/uL RBC 3.76 L (4.30-5.90) m/uL Hgb 6.6 L* (13.0-17.5) gm/dL Hct 24.3 L (39.0-53.0) % MCV 64.5 L (80.0-100.0) fL MCH 17.5 L (25.0-35.0) pg MCHC 27.1 L (31.0-37.0) g/dL RDW 19.8 H (11.5-15.5) % Plt Count 325 (150-450) k/uL MPV 8.0 Neutrophils % Not Reportable Neutrophils % (Manual) 72 % Lymphocytes % Not Reportable Lymphocytes % (Manual) 21 % Monocytes % Not Reportable Monocytes % (Manual) 3 % Eosinophils % Not Reportable Eosinophils % (Manual) 2 % Basophils % Not Reportable Basophils % (Manual) 1 % Metamyelocytes % 1 % Neutrophils # Not Reportable Neutrophils # (Manual) 5.33 (1.3-7.7) k/uL Lymphocytes # Not Reportable Lymphocytes # (Manual) 1.55 (1.0-4.8) k/uL Monocytes # Not Reportable Monocytes # (Manual) 0.22 (0-1.0) k/uL Eosinophils # Not Reportable Eosinophils # (Manual) 0.15 (0-0.7) k/uL Basophils # Not Reportable Basophils # (Manual) 0.07 (0-0.2) k/uL Metamyelocytes # (Man) 0.07 H (0) k/uL Nucleated RBCs 0 (0-0) /100 WBC Manual Slide Review Performed Hypochromasia Marked Poikilocytosis Slight Anisocytosis Slight Microcytosis Marked Target Cells Present PT 10.0 (9.0-12.0) sec INR 0.9 (<1.2) APTT 20.4 L (22.0-30.0) sec Sodium (137-145) mmol/L Potassium (3.5-5.1) mmol/L Chloride (98-107) mmol/L Carbon Dioxide (22-30) mmol/L Anion Gap mmol/L BUN (9-20) mg/dL Creatinine (0.66-1.25) mg/dL Est GFR (CKD-EPI)AfAm (>60 ml/min/1.73 sqM) Est GFR (CKD-EPI)NonAf (>60 ml/min/1.73 sqM) Glucose (74-99) mg/dL Plasma Lactic Acid Chuck (0.7-2.0) mmol/L Calcium (8.4-10.2) mg/dL Total Bilirubin (0.2-1.3) mg/dL AST (17-59) U/L ALT (4-49) U/L Alkaline Phosphatase (38-126) U/L Troponin I (0.000-0.034) ng/mL Total Protein (6.3-8.2) g/dL Albumin (3.5-5.0) g/dL Lipase (23-300) U/L Stool Occult Blood (Negative) Blood Type O Negative Blood Type Recheck O Neg Bld Type Recheck Status No Antibody Screen NEGATIVE Crossmatch See Detail Spec Expiration Date 10/10/2021 - 233910/07/21 Range/Units 17:10 WBC (3.8-10.6) k/uL RBC (4.30-5.90) m/uL Hgb (13.0-17.5) gm/dL Hct (39.0-53.0) % MCV (80.0-100.0) fL MCH (25.0-35.0) pg MCHC (31.0-37.0) g/dL RDW (11.5-15.5) % Plt Count (150-450) k/uL MPV Neutrophils % Neutrophils % (Manual) % Lymphocytes % Lymphocytes % (Manual) % Monocytes % Monocytes % (Manual) % Eosinophils % Eosinophils % (Manual) % Basophils % Basophils % (Manual) % Metamyelocytes % % Neutrophils # Neutrophils # (Manual) (1.3-7.7) k/uL Lymphocytes # Lymphocytes # (Manual) (1.0-4.8) k/uL Monocytes # Monocytes # (Manual) (0-1.0) k/uL Eosinophils # Eosinophils # (Manual) (0-0.7) k/uL Basophils # Basophils # (Manual) (0-0.2) k/uL Metamyelocytes # (Man) (0) k/uL Nucleated RBCs (0-0) /100 WBC Manual Slide Review Hypochromasia Poikilocytosis Anisocytosis Microcytosis Target Cells PT (9.0-12.0) sec INR (<1.2) APTT (22.0-30.0) sec Sodium (137-145) mmol/L Potassium (3.5-5.1) mmol/L Chloride (98-107) mmol/L Carbon Dioxide (22-30) mmol/L Anion Gap mmol/L BUN (9-20) mg/dL Creatinine (0.66-1.25) mg/dL Est GFR (CKD-EPI)AfAm (>60 ml/min/1.73 sqM) Est GFR (CKD-EPI)NonAf (>60 ml/min/1.73 sqM) Glucose (74-99) mg/dL Plasma Lactic Acid Chuck (0.7-2.0) mmol/L Calcium (8.4-10.2) mg/dL Total Bilirubin (0.2-1.3) mg/dL AST (17-59) U/L ALT (4-49) U/L Alkaline Phosphatase (38-126) U/L Troponin I (0.000-0.034) ng/mL Total Protein (6.3-8.2) g/dL Albumin (3.5-5.0) g/dL Lipase (23-300) U/L Stool Occult Blood Positive (Negative) Blood Type Blood Type Recheck Bld Type Recheck Status Antibody Screen Crossmatch Spec Expiration Date Critical Care Time Critical Care Time: Yes Total Critical Care Time: 30 Disposition Clinical Impression: Anemia, GI bleed Disposition: [facility] Condition: Stable Is patient prescribed a controlled substance at d/c from ED?: No Referrals: Solitario Otero MD [Primary Care Provider] - 1-2 days Time of Disposition: 18:19
[2021-10-07] MEDS ORDERED: SODIUM CHLORIDE 0.9% 500 ML 500 ML IV STA (15:27)
[2021-10-07] MEDS ORDERED: PANTOPRAZOLE 40 MG/10 ML VIAL IVP STA (15:29)
[2021-10-07 16:20] LABS: Anisocytosis Slight; HCT 24.3 % (39.0-53.0); Hypochromasia Marked; MCH 17.5 pg (25.0-35.0); MCHC 27.1 g/dL (31.0-37.0); MCV 64.5 fL (80.0-100.0); Microcytosis Marked; Platelet Count 325 k/uL (150-450); Poikilocytosis Slight; RBC 3.76 m/uL (4.30-5.90); RDW 19.8 % (11.5-15.5); WBC 7.4 k/uL (3.8-10.6)
[2021-10-07 16:29] LABS: Albumin 3.9 g/dL (3.5-5.0); Calcium 8.7 mg/dL (8.4-10.2); Potassium 4.3 mmol/L (3.5-5.1); Total Bilirubin 0.4 mg/dL (0.2-1.3); Total Protein 6.9 g/dL (6.3-8.2)
[2021-10-07 16:32] LABS: HGB 6.6 gm/dL (13.0-17.5)
[2021-10-07 16:46] LABS: INR 0.9 (<1.2)
[2021-10-07] MEDS ORDERED: SODIUM CHLORIDE 0.9% 1,000 ML IV ONE (17:00)
[2021-10-07 17:03] LABS: Partial Thromboplastin Time 20.4 sec (22.0-30.0)
[2021-10-07 17:18] LABS: Basophils # (M) 0.07 k/uL (0-0.2); Eosinophils # (M) 0.15 k/uL (0-0.7); Lymphocytes # (M) 1.55 k/uL (1.0-4.8); Metamyelocytes # (M) 0.07 k/uL (0); Metamyelocytes % 1 %; Monocytes # (M) 0.22 k/uL (0-1.0); Neutrophils # (M) 5.33 k/uL (1.3-7.7); Neutrophils % (M) 72 %; Nucleated Red Blood Cells 0 /100 WBC (0-0); Total Cells Counted 100
[2021-10-07 17:19] LABS: Target Cells Present
[2021-10-07] MEDS: SODIUM CHLORIDE 0.9% 1,000 ML IV SCH (18:45)
[2021-10-08] MEDS: SODIUM CHLORIDE 0.9% 1,000 ML IV SCH ×2 (08:45→19:42)
--- NOTE | 2021-10-08 10:22 | P.GSCN ---
History of Present Illness Consult date: 10/08/21 Reason for Consult: Anemia, GI bleed History of present illness: 81-year-old male admitted to the hospital with anemia. Found to have a hemogl obin of 6.3 in the office. Patient with episodes similar to this last August and March. Underwent EGD and colonoscopy in August by Dr. Damian and EGD in March by Dr. Barrett. On both upper endoscopies patient with evidence of ulcer disease. He does take antiacids daily. Denies black stools but says he has had some very dark brown stools last week. No abdominal pain. No vomiting. Patient does not take blood thinners. Patient has had capsule endoscopy also that was normal. Review of Systems The patient denies any acute changes in vision or hearing, no dysphagia or odynophagia, no chest pain or shortness of breath, no dysuria or hematuria, no headache, no runny nose, no rectal bleeding or melena, no unexplained weight loss Past Medical History Past Medical History: Eye Disorder, GERD/Reflux, Hyperlipidemia, Thyroid Disorder Additional Past Medical History / Comment(s): "Prediabetes, watching diet, no medications." Bilateral cataracts. History of Any Multi-Drug Resistant Organisms: None Reported Past Surgical History: Cholecystectomy, Heart Catheterization With Stent Additional Past Surgical History / Comment(s): EGD/Colonoscopy. small capsule swallow study Past Anesthesia/Blood Transfusion Reactions: No Reported Reaction Date of Last Stent Placement:: 2012 Past Psychological History: No Psychological Hx Reported Smoking Status: Never smoker Past Alcohol Use History: None Reported Past Drug Use History: None Reported - Past Family History Brother(s) Family Medical History: Cancer Medications and Allergies Home Medications Medication Instructions Recorded Confirmed Type Ferrous Sulfate [Iron (65 MG 325 mg PO HS 04/14/21 10/07/21 History Elemental)] Cholecalciferol [Vitamin D3 (25 25 mcg PO HS 10/07/21 10/07/21 History Mcg = 1000 Iu)] Cyanocobalamin [Vitamin B-12] 500 mcg PO HS 10/07/21 10/07/21 History Levothyroxine Sodium [Synthroid] 300 mcg PO DAILY 10/07/21 10/07/21 History Pantoprazole Sodium [Protonix] 20 mg PO W/SUPPER 10/07/21 10/07/21 History Allergies Allergy/AdvReac Type Severity Reaction Status Date / Time No Known Allergies Allergy Verified 10/07/21 18:31 Surgical - Exam Vital Signs Temp Pulse Resp BP Pulse Ox 97 F L 101 H 18 106/60 100 10/07/21 14:54 10/07/21 14:54 10/07/21 14:54 10/07/21 14:54 10/07/21 14:54 Physical exam: General: Well-developed, well-nourished HEENT: Normocephalic, sclerae nonicteric Abdomen: Nontender, nondistended Extremities: No edema Neuro: Alert and oriented Results - Labs 10/07/21 15:40 10/07/21 15:31 Abnormal Lab Results - Last 24 Hours (Table) 10/07/21 10/07/21 10/07/21 Range/Units 15:31 15:31 15:40 RBC 3.76 L (4.30-5.90) m/uL Hgb 6.6 L* (13.0-17.5) gm/dL Hct 24.3 L (39.0-53.0) % MCV 64.5 L (80.0-100.0) fL MCH 17.5 L (25.0-35.0) pg MCHC 27.1 L (31.0-37.0) g/dL RDW 19.8 H (11.5-15.5) % Metamyelocytes # (Man) 0.07 H (0) k/uL APTT (22.0-30.0) sec BUN 23 H (9-20) mg/dL Glucose 130 H (74-99) mg/dL Plasma Lactic Acid Chuck 2.6 H* (0.7-2.0) mmol/L Crossmatch 10/07/21 10/07/21 Range/Units 15:40 15:40 RBC (4.30-5.90) m/uL Hgb (13.0-17.5) gm/dL Hct (39.0-53.0) % MCV (80.0-100.0) fL MCH (25.0-35.0) pg MCHC (31.0-37.0) g/dL RDW (11.5-15.5) % Metamyelocytes # (Man) (0) k/uL APTT 20.4 L (22.0-30.0) sec BUN (9-20) mg/dL Glucose (74-99) mg/dL Plasma Lactic Acid Chuck (0.7-2.0) mmol/L Crossmatch See Detail Diabetes panel 10/07/21 Range/Units 15:31 Sodium 137 (137-145) mmol/L Potassium 4.3 (3.5-5.1) mmol/L Chloride 105 (98-107) mmol/L Carbon Dioxide 22 (22-30) mmol/L BUN 23 H (9-20) mg/dL Creatinine 0.93 (0.66-1.25) mg/dL Glucose 130 H (74-99) mg/dL Calcium 8.7 (8.4-10.2) mg/dL AST 18 (17-59) U/L ALT 10 (4-49) U/L Alkaline Phosphatase 110 (38-126) U/L Total Protein 6.9 (6.3-8.2) g/dL Albumin 3.9 (3.5-5.0) g/dL Calcium panel 10/07/21 Range/Units 15:31 Calcium 8.7 (8.4-10.2) mg/dL Albumin 3.9 (3.5-5.0) g/dL Pituitary panel 10/07/21 Range/Units 15:31 Sodium 137 (137-145) mmol/L Potassium 4.3 (3.5-5.1) mmol/L Chloride 105 (98-107) mmol/L Carbon Dioxide 22 (22-30) mmol/L BUN 23 H (9-20) mg/dL Creatinine 0.93 (0.66-1.25) mg/dL Glucose 130 H (74-99) mg/dL Calcium 8.7 (8.4-10.2) mg/dL Adrenal panel 10/07/21 Range/Units 15:31 Sodium 137 (137-145) mmol/L Potassium 4.3 (3.5-5.1) mmol/L Chloride 105 (98-107) mmol/L Carbon Dioxide 22 (22-30) mmol/L BUN 23 H (9-20) mg/dL Creatinine 0.93 (0.66-1.25) mg/dL Glucose 130 H (74-99) mg/dL Calcium 8.7 (8.4-10.2) mg/dL Total Bilirubin 0.4 (0.2-1.3) mg/dL AST 18 (17-59) U/L ALT 10 (4-49) U/L Alkaline Phosphatase 110 (38-126) U/L Total Protein 6.9 (6.3-8.2) g/dL Albumin 3.9 (3.5-5.0) g/dL Assessment and Plan (1) GI bleed Narrative/Plan: 81-year-old male with recurrent anemia. Patient would benefit from repeat EGD given the presence of ulcers on both of the last 2 upper endoscopies. We'll tentatively schedule for EGD tomorrow for Dr. Martínez. Current Visit: Yes Status: Acute Code(s): K92.2 - GASTROINTESTINAL HEMORRHAGE, UNSPECIFIED SNOMED Code(s): 85482643
[2021-10-08 11:50] LABS: Basophils # (A) 0.04 X 10*3/uL (0.00-0.10); Basophils % (A) 0.4 %; Eosinophils # (A) 0.16 X 10*3/uL (0.04-0.35); Eosinophils % (A) 1.8 %; HCT 26.6 % (39.6-50.0); HGB 7.2 g/dL (13.0-17.0); Immature Grans, Automated 0.7 %; Lymphocytes # (A) 2.04 X 10*3/uL (0.90-5.00); Lymphocytes % (A) 22.8 %; MCH 18.3 pg (27.0-32.0); MCHC 27.1 g/dL (32.0-37.0); MCV 67.5 fL (80.0-97.0); Mean Platelet Volume 10.6 fL (9.5-12.2); Monocytes # (A) 0.71 X 10*3/uL (0.20-1.00); Monocytes % (A) 7.9 %; NRBC Per 100 WBC 0 /100 WBCS (0.0-0.0); Neutrophils # (A) 5.95 X 10*3/uL (1.80-7.70); Neutrophils % (A) 66.4 %; Platelet Count 306 X 10*3/uL (140-440); RBC 3.94 X 10*6/uL (4.40-5.60); RDW 25.2 % (11.5-14.5); WBC 8.96 X 10*3/uL (4.50-10.00)
[2021-10-08 12:25] LABS: African American GFR (CKD) 91.9 (60.0-200.0); Albumin 3.8 g/dL (3.8-4.9); Albumin/Globulin Ratio 1.75 (1.60-3.17); Anion Gap 8.8 mmol/L (10.00-18.00); BUN/Creat Ratio 17.25 Ratio (12.00-20.00); Blood Urea Nitrogen 15.7 mg/dL (9.0-27.0); Calcium 8.7 mg/dL (8.7-10.3); Carbon Dioxide 22.9 mmol/L (20.0-27.5); Globulin 2.2 g/dL (1.6-3.3); Non-African American GFR(CKD) 79.3 (60.0-200.0); Potassium 4.1 mmol/L (3.5-5.5); Total Bilirubin 0.6 mg/dL (0.30-1.20); Total Protein 5.9 g/dL (6.2-8.2)
[2021-10-08] MEDS: PANTOPRAZOLE 40 MG/10 ML VIAL IVP SCH ×2 (12:49→19:40)
--- NOTE | 2021-10-08 13:03 | HP ---
HISTORY AND PHYSICAL CHIEF COMPLAINT: Weakness, shortness of breath, and dark stool. HISTORY OF PRESENT ILLNESS: This is another admission for this 81-year-old white male who has had a longstanding history of multiple episodes of upper GI bleeding usually from ulcer disease. Several days ago he had a dark stool. Two or three days later he felt fatigued and when he came into the emergency room he had a hemoglobin of around 6 with stool positive for blood. He has had no significant abdominal pain. He has had no vomiting or hematemesis. He has had no hematochezia. REVIEW OF SYSTEMS: Otherwise normal. He has had no shortness of breath, chest pain, abdominal pain, hematuria, etc. Past medical history, family history and personal and social histories are all otherwise unremarkable and noncontributory or unchanged. He is hypothyroid. PHYSICAL EXAMINATION: Blood pressure is 125/74 with a pulse of 86, respirations of 35 and he is afebrile. GENERAL: He appeared to be pale. Otherwise he is normal. HEAD, ears, eyes, nose, mouth and throat were normal. CHEST was clear. CARDIAC exam demonstrated normal sinus rhythm. ABDOMEN was slightly protuberant, soft and nontender without any visceromegaly or masses. Bowel sounds present. EXTREMITIES: Normal. NEUROLOGICALLY: He is intact. IMPRESSION: He is admitted to the hospital with diagnoses: 1. Upper gastrointestinal hemorrhage. 2. Blood-loss anemia. 3. Hypothyroidism. 4. History of hypertension. PLAN: 1. Bedrest. 2. IV fluids. 3. IV Protonix. 4. N.p.o. 5. General surgery consult. 6. Serial hemoglobins. MMODL / IJN: [id number] /
--- NOTE | 2021-10-08 13:12 | PN ---
PROGRESS NOTE DATE OF SERVICE: 10/08/2021 CHIEF COMPLAINT: Upper gastrointestinal bleed. HISTORY OF PRESENT ILLNESS: This gentleman has been stable. He has not had any abdominal pain, shortness of breath, chest pain, etc. PHYSICAL EXAMINATION: Chest is clear. Cardiac exam is normal. Abdomen is soft, nontender. IMPRESSION: Upper gastrointestinal bleed. PLAN: 1. Continue with IV Protonix and serial hemoglobins. 2. He is going tomorrow for endoscopy. MMODL / IJN: [id number] /
[2021-10-08 14:08] LABS: Anisocytosis Moderate; HCT 27.5 % (39.0-53.0); HGB 7.7 gm/dL (13.0-17.5); Hypochromasia Marked; MCH 19.4 pg (25.0-35.0); MCHC 28.1 g/dL (31.0-37.0); MCV 69.1 fL (80.0-100.0); Mean Platelet Volume 9.3; Microcytosis Marked; Platelet Count 303 k/uL (150-450); Poikilocytosis Marked; RBC 3.98 m/uL (4.30-5.90); RDW 22.5 % (11.5-15.5); WBC 7.6 k/uL (3.8-10.6)
[2021-10-08 18:56] LABS: Anisocytosis Moderate; HCT 27.2 % (39.0-53.0); HGB 7.6 gm/dL (13.0-17.5); Hypochromasia Marked; MCH 19.4 pg (25.0-35.0); MCV 69.2 fL (80.0-100.0); Mean Platelet Volume 9.3; Microcytosis Marked; Platelet Count 293 k/uL (150-450); Poikilocytosis Marked; RBC 3.93 m/uL (4.30-5.90); RDW 22.7 % (11.5-15.5)
[2021-10-09] MEDS: SODIUM CHLORIDE 0.9% 1,000 ML IV SCH ×2 (06:07→19:17)
[2021-10-09] MEDS: LEVOTHYROXINE 100 MCG TAB PO SCH (06:07)
[2021-10-09 06:25] LABS: Anisocytosis Moderate; HCT 27.1 % (39.0-53.0); HGB 7.5 gm/dL (13.0-17.5); Hypochromasia Marked; MCHC 27.5 g/dL (31.0-37.0); Mean Platelet Volume 8.7; Microcytosis Marked; Platelet Count 284 k/uL (150-450); Poikilocytosis Marked; RBC 3.93 m/uL (4.30-5.90); RDW 22.7 % (11.5-15.5); WBC 6.3 k/uL (3.8-10.6)
[2021-10-09] MEDS: PANTOPRAZOLE 40 MG/10 ML VIAL IVP SCH ×2 (08:37→20:22)
[2021-10-09] MEDS ORDERED: IV FLUID CONTINUATION 1,000 ML IV ONE ×2 (13:05)
--- NOTE | 2021-10-09 13:20 | P.OP ---
Date of Procedure: 10/09/21 Preoperative Diagnosis: GI bleeding and Anemia Postoperative Diagnosis: Sliding hiatal hernia Esophagitis No evidence of upper GI bleed Procedure(s) Performed: EGD Anesthesia: MAC Surgeon: Casey Martínez Pathology: other (Esophagus) Condition: stable Disposition: PACU Description of Procedure: The patient's placed on the endoscopy table in the lateral position. He received IV sedation. The gastroscope placed oropharynx passed in the esophagus and stomach. Scope was then placed through the pylorus. The first and second portion of the duodenum appeared normal. The scope was then brought back the antrum was normal. Scope was unretroflexed and remainder of the stomach appeared normal. The patient had a small sliding hiatal hernia. The GE junction was at 39 cm. The distal esophagus appeared mildly inflamed. A biopsies performed. The proximal esophagus appeared normal. Scope withdrawn for patient. There was no evidence of GI bleed. If the patient's hemoglobin drops or he shows signs of GI bleed. He will need colonoscopy.
--- NOTE | 2021-10-09 16:22 | CDI ---
Documentation Clarification Form Date: 10/09/2021 04:19:20 PM From: Fabiola Sierra RN, CCDS Admit Date: 10/07/2021 06:19:00 PM Patient Name: Mendoza Euceda Visit Number: [id number] Discharge Date: ATTENTION: The Clinical Documentation Specialists (CDI) and [facility] Coding Staff appreciate your assistance in clarifying documentation. Please respond to the clarification below the line at the bottom and electronically sign. The CDI & [facility] Coding staff will review the response and follow-up if needed. Please note: Queries are made part of the Legal Health Record. If you have any questions, please contact the author of this message via ITS. Dr. Solitario Otero Blood loss anemia is documented in the H&P on 10/08/21. Additional specificity regarding the acuity of anemia is requested. History/Risk Factors: GI bleeding, Hypertension Clinical indicators: 81-year-old male with history of multiple episodes of upper GI bleeding present with fatigued in emergency room had a hemoglobin of 6.6, hematocrit 24.2. 10/07 vital sign: 106/60 101 18 97.0 100% RA Treatment: Telemetry monitoring Monitor CBC (serial per orders) Transfuse 2 UPRBC Please clarify the type and acuity of anemia: [ ] Acute blood loss anemia [ ] Acute on chronic blood loss anemia [ ] Chronic blood loss anemia [ ] Unable to determine [ ] Other, please specify (Template Last Revised: August 2020) MTDD
--- NOTE | 2021-10-09 19:45 | PN ---
PROGRESS NOTE DATE OF SERVICE: 10/09/2021 CHIEF COMPLAINT: Upper GI bleed. HISTORY OF PRESENT ILLNESS: This gentleman is stable with no pain. He has had no further bleeding. He is going for endoscopy today. PHYSICAL EXAM: He remains pale. Chest is clear. Cardiac exam is normal. Abdomen is slightly protuberant, soft and nontender without masses. IMPRESSION: Upper gastrointestinal bleed. PLAN: Endoscopy today. MMODL / IJN: [id number] /
[2021-10-10] MEDS: LEVOTHYROXINE 100 MCG TAB PO SCH (05:14)
[2021-10-10] MEDS: SODIUM CHLORIDE 0.9% 1,000 ML IV SCH (05:14)
[2021-10-10] MEDS: PANTOPRAZOLE 40 MG/10 ML VIAL IVP SCH ×2 (10:30→19:43)
[2021-10-10 10:58] LABS: Anisocytosis Marked; HCT 27.3 % (39.0-53.0); HGB 7.5 gm/dL (13.0-17.5); Hypochromasia Marked; MCH 19.3 pg (25.0-35.0); MCHC 27.3 g/dL (31.0-37.0); MCV 70.6 fL (80.0-100.0); Mean Platelet Volume 8.9; Microcytosis Marked; Platelet Count 273 k/uL (150-450); Poikilocytosis Marked; RBC 3.86 m/uL (4.30-5.90); RDW 24.1 % (11.5-15.5); WBC 6.5 k/uL (3.8-10.6)
--- NOTE | 2021-10-10 13:04 | P.PN ---
Subjective Progress Note Date: 10/10/21 CHIEF COMPLAINT: GI bleed and anemia HISTORY OF PRESENT ILLNESS: Patient is sitting up at bedside chair. He denies any abdominal pain. Denies any black stools or any blood in his stools. He is status post EGD revealing a sliding hiatal hernia, esophagitis and no evidence of upper GI bleed. His hemoglobin has remained stable at 7.5 he's tolerating regular diet. He is afebrile. Patient seen and examined with Dr. jason PHYSICAL EXAM: VITAL SIGNS: Reviewed. GENERAL: Well-developed in no acute distress. HEENT: No sclera icterus. Extraocular movements grossly intact. Moist buccal mucosa. Head is atraumatic, normocephalic. ABDOMEN: Soft. Nondistended. Nontender. NEUROLOGIC: Alert and oriented. Cranial nerves II through XII grossly intact. ASSESSMENT: 1. Anemia and GI bleed 2. Status post EGD revealing a sliding hiatal hernia, esophagitis and no evidence of upper GI bleed PLAN: -Patient is stable from surgical standpoint for discharge -Continue PPI -Patient follow-up with Dr. jason in the office in one week Physician Information Tech note has been reviewed by physician. Signing provider agrees with the documented findings, assessment, and plan of care. Objective - Vital Signs Vital signs: Vital Signs Temp 98.1 F 10/10/21 12:20 Pulse 67 10/10/21 12:20 Resp 18 10/10/21 12:20 BP 115/76 10/10/21 12:20 Pulse Ox 100 10/10/21 12:20 Intake & Output 10/09/21 10/10/21 10/10/21 18:59 06:59 18:59 Intake Total 1300 900 180 Balance 1300 900 180 Intake: IV 100 Intake, IV Titration 900 900 Amount Sodium Chloride 0.9% 1, 900 900 000 ml @ 75 mls/hr IV . [id number] [facility] Rx#:[id number] Oral 300 180 Other: Voiding Method Toilet Toilet Toilet # Voids 3 - Labs CBC & Chem 7: 10/10/21 10:10 10/08/21 07:34 Labs: Abnormal Lab Results - Last 24 Hours (Table) 10/10/21 Range/Units 10:10 RBC 3.86 L (4.30-5.90) m/uL Hgb 7.5 L (13.0-17.5) gm/dL Hct 27.3 L (39.0-53.0) % MCV 70.6 L (80.0-100.0) fL MCH 19.3 L (25.0-35.0) pg MCHC 27.3 L (31.0-37.0) g/dL RDW 24.1 H (11.5-15.5) %
--- NOTE | 2021-10-10 15:45 | MISC ---
MISCELLANOUS REPORT QUERY: Acute blood loss anemia. MMODL / IJN: [id number] /
--- NOTE | 2021-10-10 20:42 | PN ---
PROGRESS NOTE CHIEF COMPLAINT: Upper gastrointestinal bleed. HISTORY OF PRESENT ILLNESS: This gentleman is doing well. He has been stable. Apparently his scope failed to reveal ulcer disease or any other source of bleeding. PHYSICAL EXAM: Remains pale. Chest is clear. Cardiac exam is normal. Abdomen is protuberant and soft. IMPRESSION: 1. Gastrointestinal bleed. 2. Blood-loss anemia. PLAN: Probably home today or tomorrow. MMODL / IJN: [id number] /
[2021-10-11] MEDS: SODIUM CHLORIDE 0.9% 1,000 ML IV SCH (03:38)
[2021-10-11] MEDS: LEVOTHYROXINE 100 MCG TAB PO SCH (05:45)
[2021-10-11] MEDS: PANTOPRAZOLE 40 MG/10 ML VIAL IVP SCH (09:30)
[2021-10-11 12:23] VITALS: BP 103/63; PULSE 95; RESP 18; TEMP 98.5
--- NOTE | 2021-10-11 14:29 | P.PN ---
Subjective Progress Note Date: 10/11/21 CHIEF COMPLAINT: GI bleed and anemia HISTORY OF PRESENT ILLNESS: Patient is sitting up at bedside chair. He denies any abdominal pain. Denies any black stools or any blood in his stools. He is status post EGD revealing a sliding hiatal hernia, esophagitis and no evidence of upper GI bleed. His hemoglobin is stable at 7.5 yesterday. he's tolerating regular diet. He is afebrile. Patient seen and examined with Dr. jason PHYSICAL EXAM: VITAL SIGNS: Reviewed. GENERAL: Well-developed in no acute distress. HEENT: No sclera icterus. Extraocular movements grossly intact. Moist buccal mucosa. Head is atraumatic, normocephalic. ABDOMEN: Soft. Nondistended. Nontender. NEUROLOGIC: Alert and oriented. Cranial nerves II through XII grossly intact. ASSESSMENT: 1. Anemia and GI bleed 2. Status post EGD revealing a sliding hiatal hernia, esophagitis and no evidence of upper GI bleed PLAN: -Patient is stable from surgical standpoint for discharge -Continue PPI -Patient follow-up with Dr. jason in the office in one week Physician Control Valve Mechanic note has been reviewed by physician. Signing provider agrees with the documented findings, assessment, and plan of care. Objective - Vital Signs Vital signs: Vital Signs Temp 98.5 F 10/11/21 12:00 Pulse 95 10/11/21 12:00 Resp 18 10/11/21 12:00 BP 103/63 10/11/21 12:00 Pulse Ox 95 10/11/21 12:00 Intake & Output 10/10/21 10/11/21 10/11/21 18:59 06:59 18:59 Intake Total 360 Balance 360 Intake: Intake, IV Titration 0 Amount Sodium Chloride 0.9% 1, 0 000 ml @ 75 mls/hr IV . [id number] [facility] Rx#:[id number] Oral 360 Other: Voiding Method Toilet Toilet Toilet # Voids 3 5 # Bowel Movements 1 1 - Labs CBC & Chem 7: 10/10/21 10:10 10/08/21 07:34
[2021-10-11] MEDS ORDERED: PANTOPRAZOLE 40 MG TABLET PO SCH (17:30)
--- NOTE | 2021-10-11 20:14 | DS ---
DISCHARGE SUMMARY CHIEF COMPLAINT: 1. Upper gastrointestinal hemorrhage. 2. Blood-loss anemia. HISTORY OF PRESENT ILLNESS AND PHYSICAL EXAMINATION: Details of this man's history and physical can be found in the initial workup. LABORATORY STUDIES: While he was in the hospital, he had laboratory studies, details of which can be found in the laboratory section of his chart. COURSE IN THE HOSPITAL: After admission, he was placed on bedrest and started on intravenous fluids and seen by Surgery. He was taken to the operating room where had an upper GI endoscopy where he had a hiatal hernia but there was no source of bleeding. There is no ulcer. He had no further bleeding in the hospital and his hemoglobin was stable at 7.5. He is doing well and it was felt he could go home. He will go home on light activity and his regular diet along with Protonix 40 mg twice a day and will be seen in several days. FINAL DIAGNOSES: 1. Upper gastrointestinal hemorrhage. 2. Blood-loss anemia. 3. Hypothyroidism. OPERATIONS: Endoscopy. CONSULTATIONS: General surgery. He is improved. MMNARGIS / ARMEN: [id number] /
== END 2021-10-11 16:52 | disposition home or self-care (01) | DRG 378 ==
LOC: EC 14:35 → 5NMEDONC 18:19
PROVIDERS: ADMIT Family Medicine; ATTEND Family Medicine
PROC: 30233N1 Transfusion of Nonautologous Red Blood Cells into Peripheral Vein, Percutaneous Approach (ICD-10-PCS; 2021-10-07)
PROC: 0DB48ZX Excision of Esophagogastric Junction, Via Natural or Artificial Opening Endoscopic, Diagnostic (ICD-10-PCS; principal; 2021-10-09 07:30)
DX: K92.2 Gastrointestinal hemorrhage, unspecified (principal); D62 Acute posthemorrhagic anemia; E03.9 Hypothyroidism, unspecified; E78.5 Hyperlipidemia, unspecified; I10 Essential (primary) hypertension; K44.9 Diaphragmatic hernia without obstruction or gangrene; Z79.890 Hormone replacement therapy; K21.00 Gastro-esophageal reflux disease with esophagitis, without bleeding
CPT/HCPCS: 36415; 36430; 43239; 80053; 82272; 82607; 82728; 82746; 83540; 83550; 83605; 83690; 84466; 84484; 85025; 85027; 85045; 85610; 85730; 86850; 86900; 86901; 86920; 88305; 93005; 96361; 96374; 99285

== ENCOUNTER → 2022-01-04 | Outpatient (CLI) | payer MEDICARE, OTHER ==
--- NOTE | 2022-01-04 15:06 | CT ---
EXAMINATION TYPE: CT abdomen pelvis w con DATE OF EXAM: 01/04/2022 COMPARISON: None INDICATION: Anemia DLP: 1886.50 mGycm, Automated exposure control for dose reduction was used. CONTRAST: 70 mL of Isovue 300. Study performed with Oral Contrast TECHNIQUE: Axial images were obtained from above the diaphragm to the pubic rami in the axial plane a t 5 mm thick sections. Reconstructed images are reviewed on the computer in the coronal plane. FINDINGS: Limited CT sections are obtained the lung bases. The lung bases are clear. CT ABDOMEN: Liver: Normal Spleen: Normal Pancreas: Normal Adrenal glands: The adrenal glands are normal. Gallbladder: Surgically absent Kidneys: No masses are evident. No hydronephrosis is present. No cysts are present. Delayed images were obtained through the kidneys, which remain unremarkable. Aorta: Vascular calcification is within the aorta. Inferior vena cava: Normal. CT PELVIS: Loops of bowel within the abdomen and pelvis are normal. There are loops of bowel which are incom pletely distended or lack oral contrast limiting their evaluation. Appendix: Normal as visualized. Urinary bladder: Normal. Genitourinary structures: Prostate is prominent. Osseous structures: No suspicious lytic or sclerotic lesions are evident. IMPRESSIONS: 1. Prominent prostate.
== END | disposition home or self-care (01) ==
LOC: RADCTMAIN 10:49
PROVIDERS: ATTEND Internal Medicine Hematology & Oncology
DX: D50.9 Iron deficiency anemia, unspecified (principal)
CPT/HCPCS: 82565; 84520; 74177; 36415; Q9967

== ENCOUNTER 2022-07-26 13:52 | Inpatient (IN) | payer MEDICARE, OTHER ==
[2022-07-26 14:26] LABS: Anisocytosis Slight; Basophils # (A) 0.1 k/uL (0-0.2); Basophils % (A) 1 %; Eosinophils % (A) 0 %; HCT 47.9 % (39.0-53.0); Lymphocytes % (A) 22 %; MCH 28.3 pg (25.0-35.0); MCHC 33.3 g/dL (31.0-37.0); MCV 84.9 fL (80.0-100.0); Mean Platelet Volume 8.8; Monocytes # (A) 0.5 k/uL (0-1.0); Monocytes % (A) 5 %; Neutrophils # (A) 6.3 k/uL (1.3-7.7); Neutrophils % (A) 68 %; Platelet Count 263 k/uL (150-450); RBC 5.64 m/uL (4.30-5.90); RDW 16.2 % (11.5-15.5); WBC 9.2 k/uL (3.8-10.6)
[2022-07-26 14:35] LABS: INR 0.9 (<1.2); Partial Thromboplastin Time 24.5 sec (22.0-30.0); Prothrombin Time 9.9 sec (9.0-12.0)
[2022-07-26 14:36] LABS: ALT 20 U/L (4-49); AST 27 U/L (17-59); African American GFR (CKD) >90 (>60 ml/min/1.73 sqM); Albumin 4.3 g/dL (3.5-5.0); Anion Gap 8 mmol/L; Blood Urea Nitrogen 17 mg/dL (9-20); Calcium 9.2 mg/dL (8.4-10.2); Carbon Dioxide 23 mmol/L (22-30); Chloride 106 mmol/L (98-107); Glucose 127 mg/dL (74-99); Non-African American GFR(CKD) 84 (>60 ml/min/1.73 sqM); Potassium 4.7 mmol/L (3.5-5.1); Sodium 137 mmol/L (137-145); Total Bilirubin 0.6 mg/dL (0.2-1.3); Total Protein 7.7 g/dL (6.3-8.2)
[2022-07-26 14:37] LABS: Alkaline Phosphatase 144 U/L (38-126); Magnesium 1.9 mg/dL (1.6-2.3)
--- NOTE | 2022-07-26 14:38 | CT ---
EXAMINATION TYPE: CT brain wo con DATE OF EXAM: 07/26/2022 COMPARISON: None HISTORY: Right sided weakness. CT DLP: 1173.[address] of the brain was performed. The ventricles, basal cisterns and sulci overlying the cerebral convexities demonstrate mild enlargem ent. There is no evidence for intracranial hemorrhage or sulcal effacement. There is decreased attenuation about the periventricular white matter and deep white matter of both c erebral hemispheres, compatible with chronic small vessel ischemia. Differential diagnosis does inclu de demyelination. No mass effects are seen.No midline shift. Osseous calvarium is intact. If symptoms persist consider MRI. IMPRESSION: 1. Age related atrophic and chronic small vessel ischemic change without acute intracranial process s een at this time.
--- NOTE | 2022-07-26 14:40 | ED ---
General Adult HPI - General Chief complaint: Neuro Symptoms/Deficit Stated complaint: right sided weakness, SOB,Back Pain Time Seen by Provider: 07/26/22 14:02 Source: patient Mode of arrival: wheelchair Limitations: no limitations - History of Present Illness Initial comments: Dictation was produced using M.Setek dictation software. please excuse any grammatical, word or spelling errors. Chief Complaint: 81-year-old male presents with paresthesias since Saturday History of Present Illness: Patient is an 81-year-old male presents emergency department with episodes of migraine paresthesias since Saturday. He states that on Saturday he was expressing paresthesias and weakness including his bilateral arms and legs. Last for several minutes however he was able to get out of bed. The day after he had similar symptoms just in his lower legs. Again lasted only for several minutes. Today felt like is more pronounced in his right arm and right leg. Since being in the ER visits in his right arm. No other complaints at this time. The ROS documented in this emergency department record has been reviewed and confirmed by me. Those systems with pertinent positive or negative responses have been documented in the HPI. All other systems are other negative and/or noncontributory. PHYSICAL EXAM: General Impression: Alert and oriented x3, not in acute distress HEENT: Normocephalic atraumatic, extra-ocular movements intact, pupils equal and reactive to light bilaterally, mucous membranes moist. Cardiovascular: Heart regular rate and rhythm Chest: Able to complete full sentences, no retractions, no tachypnea Abdomen: abdomen soft, non-tender, non-distended, no organomegaly Musculoskeletal: Pulses present and equal in all extremities, no peripheral edema Motor: no focal deficits noted Neurological: CN II-XII grossly intact, no focal motor or sensory deficits noted, nih 0 Skin: Intact with no visualized rashes Psych: Normal affect and mood ED course: 81-year-old male presents to the emergency Department with 4 days of migraine paresthesias. Vital signs upon arrival are within acceptable limits. Physical examination is unremarkable. Neuro exam is negative. Nursing notes and chart review was performed Laboratory evaluation obtained. CBC, coag panel, metabolic panel is unremarkable. Abdominal labs are negative. Computed tomography scan of brain is unremarkable. Patient reevaluated at bedside. Disposition options were discussed. Patient states he doesn't feel comfortable going home. Repeat neurologic neurologic exam shows Some very mild drift of his right upper extremity. Patient given aspirin will be admitted with consultation to neurology. My EKG interpretation: Ventricular rate 102, sinus tachycardia,. Interval 160, QRS 97, QTC 398. No IL prolongation, no QTC prolongation, no ST or T-wave changes noted. Overall, this EKG is unremarkable Was pt. sent in by a medical professional or institution (JESSICA Mcrae, BUFFER OPERATOR, urgent care, hospital, or long-term...) When possible be specific @ -No Did you speak to anyone other than the patient for history (EMS, parent, family, police, friend...)? What history was obtained from this source @ -No Did you review nursing and triage notes (agree or disagree)? Why? @ -I reviewed and agree with nursing and triage notes Were old charts reviewed (outside hosp., previous admission, EMS record, old EKG, old radiological studies, urgent care reports/EKG's, long-term records)? Report findings @ -No old charts were reviewed Differential Diagnosis (chest pain, altered mental status, abdominal pain women, abdominal pain men, vaginal bleeding, weakness, fever, dyspnea, syncope, headache, dizziness, GI bleed, back pain, seizure, CVA, palpatations, mental health)? @ -Differential Weakness: Hypoglycemia, shock, sepsis, hyponatremia, anemia, infection, VT, ETOH, adverse medicine reaction, overdose, stroke, this is not meant to be an all-inclusive li st. EKG interpreted by me (3pts min.). @ -As above X-rays interpreted by me (1pt min.). @ -None done CT interpreted by me (1pt min.). @ -As above U/S interpreted by me (1pt. min.). @ -None done What testing was considered but not performed or refused? (CT, X-rays, U/S, labs)? Why? @ -See above What meds were considered but not given or refused? Why? @ -See above Did you discuss the management of the patient with other professionals (professionals i.e. JESSICA Mcrae, BUFFER OPERATOR, lab, RT, psych nurse, social work job titles, propagator, teacher, stream control officer, supportive employment case manager)? Give summary @ -Case was discussed with Dr. Willis, hospitalist Was smoking cessation discussed for >3mins.? @ -No Was critical care preformed (if so, how long)? @ -No Were there social determinants of health that impacted care today? How? (Homelessness, low income, unemployed, alcoholism, drug addiction, transportation, low edu. Level, literacy, decrease access to med. care, fpc, r ehab)? @ -Poor social situation Was there de-escalation of care discussed even if they declined (Discuss DNR or withdrawal of care, Hospice)? DNR status @ -No What co-morbidities impacted this encounter? (DM, HTN, Smoking, COPD, CAD, Cancer, CVA, ARF, Chemo, Hep., AIDS, mental health diagnosis, sleep apnea, morbid obesity)? @ -None Was patient admitted / discharged? Hospital course, mention meds given and route, prescriptions, significant lab abnormalities, going to OR and other pe rtinent info. @ -See above Undiagnosed new problem with uncertain prognosis? @ -No Drug Therapy requiring intensive monitoring for toxicity (Heparin, Nitro, Insulin, Cardizem)? @ -No Were any procedures done? @ -No Diagnosis/symptom? @ -Migrating paresthesias, suspicion for CVA Acute, or Chronic, or Acute on Chronic? @ -default Uncomplicated (without systemic symptoms) or Complicated (systemic symptoms)? @ -default Side effects of treatment? @ -No Exacerbation, Progression, or Severe Exacerbation? @ -No Poses a threat to life or bodily function? How? (Chest pain, USA, VT, pneumonia, PE, COPD, DKA, ARF, appy, cholecystitis, CVA, Diverticulitis, Homicidal, Suicidal, threat to staff... and all critical care pts) @ -Yes - Related Data Home Medications Medication Instructions Recorded Confirmed Ferrous Sulfate [Iron (65 MG 325 mg PO HS 04/14/21 07/26/22 Elemental)] Cholecalciferol [Vitamin D3 (25 25 mcg PO HS 10/07/21 07/26/22 Mcg = 1000 Iu)] Cyanocobalamin [Vitamin B-12] 500 mcg PO HS 10/07/21 07/26/22 Levothyroxine Sodium [Synthroid] 300 mcg PO DAILY 10/07/21 07/26/22 Acetaminophen Tab [Tylenol] 325 mg PO Q6H PRN 07/26/22 07/26/22 Allergies Allergy/AdvReac Type Severity Reaction Status Date / Time [id number] Reductase Allergy Rash/Hives/Throat Verified 07/26/22 16:46 Inhibitor Swelling/Swelling Review of Systems ROS Statement: Those systems with pertinent positive or pertinent negative responses have been documented in the HPI. ROS Other: All systems not noted in ROS Statement are negative. Past Medical History Past Medical History: Eye Disorder, GERD/Reflux, Hyperlipidemia, Thyroid Disorder Additional Past Medical History / Comment(s): "Prediabetes, watching diet, no medications." Bilateral cataracts. History of Any Multi-Drug Resistant Organisms: None Reported Past Surgical History: Cholecystectomy, Heart Catheterization With Stent Additional Past Surgical History / Comment(s): EGD/Colonoscopy. small capsule swallow study Past Anesthesia/Blood Transfusion Reactions: No Reported Reaction Date of Last Stent Placement:: 2012 Past Psychological History: No Psychological Hx Reported Smoking Status: Never smoker Past Alcohol Use History: None Reported Past Drug Use History: None Reported - Past Family History Brother(s) Family Medical History: Cancer General Exam Limitations: no limitations Course Vital Signs 07/26/22 07/26/22 07/26/22 13:57 14:10 14:30 Temperature 98.1 F 98.2 F Pulse Rate 114 H 97 98 Respiratory 20 20 18 Rate Blood Pressure 152/98 156/98 148/91 O2 Sat by Pulse 97 97 96 Oximetry 07/26/22 07/26/22 15:00 16:00 Temperature Pulse Rate 91 89 Respiratory 20 20 Rate Blood Pressure 138/80 131/81 O2 Sat by Pulse 95 95 Oximetry Medical Decision Making - Lab Data Result diagrams: 07/26/22 14:15 07/26/22 14:15 Lab Results 07/26/22 07/26/22 07/26/22 Range/Units 14:15 14:15 14:15 WBC 9.2 (3.8-10.6) k/uL RBC 5.64 (4.30-5.90) m/uL Hgb 16.0 (13.0-17.5) gm/dL Hct 47.9 (39.0-53.0) % MCV 84.9 (80.0-100.0) fL MCH 28.3 (25.0-35.0) pg MCHC 33.3 (31.0-37.0) g/dL RDW 16.2 H (11.5-15.5) % Plt Count 263 (150-450) k/uL MPV 8.8 Neutrophils % 68 % Lymphocytes % 22 % Monocytes % 5 % Eosinophils % 0 % Basophils % 1 % Neutrophils # 6.3 (1.3-7.7) k/uL Lymphocytes # 2.0 (1.0-4.8) k/uL Monocytes # 0.5 (0-1.0) k/uL Eosinophils # 0.0 (0-0.7) k/uL Basophils # 0.1 (0-0.2) k/uL Anisocytosis Slight PT 9.9 (9.0-12.0) sec INR 0.9 (<1.2) APTT 24.5 (22.0-30.0) sec Sodium 137 (137-145) mmol/L Potassium 4.7 (3.5-5.1) mmol/L Chloride 106 (98-107) mmol/L Carbon Dioxide 23 (22-30) mmol/L Anion Gap 8 mmol/L BUN 17 (9-20) mg/dL Creatinine 0.82 (0.66-1.25) mg/dL Est GFR (CKD-EPI)AfAm >90 (>60 ml/min/1.73 sqM) Est GFR (CKD-EPI)NonAf 84 (>60 ml/min/1.73 sqM) Glucose 127 H (74-99) mg/dL Calcium 9.2 (8.4-10.2) mg/dL Magnesium 1.9 (1.6-2.3) mg/dL Total Bilirubin 0.6 (0.2-1.3) mg/dL AST 27 (17-59) U/L ALT 20 (4-49) U/L Alkaline Phosphatase 144 H (38-126) U/L Total Protein 7.7 (6.3-8.2) g/dL Albumin 4.3 (3.5-5.0) g/dL TSH 1.470 (0.465-4.680) mIU/L Disposition Clinical Impression: Paresthesia Disposition: ADMITTED IP TO THIS [facility] Condition: Fair Decision Time: 17:11
[2022-07-26] MEDS ORDERED: ASPIRIN 81 MG PO STA (16:10)
--- NOTE | 2022-07-26 19:47 | CT ---
EXAMINATION TYPE: CT angio head neck DATE OF EXAM: 07/26/2022 HISTORY: neurological deficits. COMPARISON: None. CT DLP: 931.5 mGycm. Automated Exposure Control for Dose Reduction was Utilized. TECHNIQUE: CTA scan of the head and neck is performed with IV Contrast, patient injected with 65ml m L of Isovue 370, axial images are obtained, coronal and sagittal reformatted images are reviewed. 3D reconstructed images are created on an independent workstation and reviewed. FINDINGS: Carotid/Vascular Structures: Normal three-vessel origin from the aortic arch. No significant plaque o r stenosis. Normal origin right common carotid artery from the right brachiocephalic artery. No signi ficant plaque or stenosis in the common carotid arteries bilaterally. There is [id number] perip heral calcified plaque at the left carotid bulb extending into proximal internal carotid artery witho ut significant stenosis. Mild to moderate peripheral calcified plaque in the distal left common carot id artery is seen. There are patent external carotid arteries bilaterally without significant stenosi s. There is artifact from layering contrast in the right internal jugular vein. There is mild periphe ral plaque in the proximal right internal carotid artery without significant stenosis. There is mild to moderate peripheral calcified plaque in the distal right carotid artery. No significant stenosis. Codominant vertebral arteries are patent to the basilar junction. Small caliber but patent left poste rior communicating artery. Hypoplastic right posterior communicating artery. No significant focal bozena nosis or aneurysm in the posterior circulation. Anterior circulation shows small caliber or hypoplast ic anterior communicating artery. There is no significant focal stenosis or aneurysm in the anterior circulation. Other: Elongated bilateral globes or colobomas are noted. Slight scoliotic curvature in the cervicoth oracic spine. Mild disc space narrowing C4-C5 and C6-C7 levels. IMPRESSION: No significant Stenosis in the common or internal carotid arteries bilaterally. No signi ficant stenosis or aneurysm at the level of the [place] of [place]. NASCET criteria was used in interpretation of this exam?
[2022-07-26] MEDS: FERROUS SULFATE 325 MG TAB PO SCH (20:04)
[2022-07-26] MEDS: CHOLECALCIFEROL 25 MCG (1000 IU) TABLET PO SCH (20:04)
[2022-07-26] MEDS: CYANOCOBALAMIN 500 MCG TAB PO SCH (20:04)
[2022-07-26] MEDS: HEPARIN SODIUM,PORCINE/PF 5,000 UNIT/0.5 ML SYRINGE SQ SCH (20:04)
[2022-07-26] MEDS: MELATONIN 5 MG TABLET PO SCH (22:34)
[2022-07-26] MEDS: ACETAMINOPHEN TAB 325 MG TAB PO PRN (22:37)
[2022-07-27] MEDS: LEVOTHYROXINE 100 MCG TAB PO SCH (05:46)
--- NOTE | 2022-07-27 07:22 | HP ---
HISTORY AND PHYSICAL CHIEF COMPLAINT: Numbness and weakness. HISTORY OF PRESENT ILLNESS: This 81-year-old gentleman with a past medical history of hypertension, hyperlipidemia, hypothyroidism, being followed by Dr. Otero in the outpatient setting, complaining of tingling, dizziness, and weakness since the weekend. The patient apparently had some incoordination, difficulty walking, and mainly currently most of the symptoms are right- sided, and the patient's initial CAT scan was negative. The patient was admitted for further evaluation and treatment for evaluation to rule out the possibility of acute stroke. There is no history of any fever, rigors, or chills at this time. PAST MEDICAL HISTORY: Hyperlipidemia, hypothyroidism. The rest of the history and rest of chart is reviewed. HOME MEDICATIONS: Reviewed and include iron sulfate. The rest of the medications are reviewed. ALLERGIES: Statins. FAMILY HISTORY: History of cancer in the family. SOCIAL HISTORY: No history of smoking or alcohol intake. REVIEW OF SYSTEMS: A 14-point review of systems is negative except as mentioned earlier. PHYSICAL EXAMINATION: VITAL SIGNS: Pulse is 97, blood pressure 157/98, respirations 20. HEENT: Conjunctivae normal. NECK: No JVD. CARDIOVASCULAR: S1, S2. RESPIRATION: Breath sounds diminished at the bases. No rhonchi. No crackles. ABDOMEN: Soft, nontender. LEGS: No edema. No swelling. NERVOUS SYSTEM: Diffusely weak. Some mild finger-nose incoordination on the right side. Mild weakness noted. The gait not tested. SKIN: No ulcer, rash, or bleeding. JOINTS: No active deforming arthropathy. LYMPHATICS: No lymph node palpable in neck, axillae, or groins. LABORATORY DATA: Reviewed. CAT scan reviewed. ASSESSMENT: 1. Tingling and numbness, possible acute stroke, rule out vertebrobasilar stroke. 2. Hyperlipidemia. 3. Hypothyroidism. 4. Multiple medical issues. RECOMMENDATIONS: In this 81-year-old gentleman, who presented with multiple complex medical issues, we will monitor the patient closely. We will initiate stroke workup including 2D echo, carotid ultrasound, Neurology consultation, neuro checks, resume home medications, antiplatelet agents, PT/OT evaluation. Overall, prognosis is extremely guarded because of multiple complex medical issues. We will initiate home medications once they are confirmed. Further recommendations to follow. MMODL / IJN: [id number] /
[2022-07-27 08:12] LABS: ALT 15 U/L (4-49); AST 16 U/L (17-59); African American GFR (CKD) 89 (>60 ml/min/1.73 sqM); Albumin 3.5 g/dL (3.5-5.0); Alkaline Phosphatase 116 U/L (38-126); Anion Gap 5 mmol/L; Blood Urea Nitrogen 15 mg/dL (9-20); Calcium 8.9 mg/dL (8.4-10.2); Carbon Dioxide 30 mmol/L (22-30); Chloride 104 mmol/L (98-107); Glucose 119 mg/dL (74-99); Non-African American GFR(CKD) 77 (>60 ml/min/1.73 sqM); Potassium 4.1 mmol/L (3.5-5.1); Sodium 139 mmol/L (137-145); Total Bilirubin 0.5 mg/dL (0.2-1.3); Total Protein 6.3 g/dL (6.3-8.2)
[2022-07-27 08:45] LABS: Anisocytosis Slight; HCT 43.9 % (39.0-53.0); HGB 14.8 gm/dL (13.0-17.5); MCH 28.9 pg (25.0-35.0); MCHC 33.6 g/dL (31.0-37.0); MCV 85.9 fL (80.0-100.0); Platelet Count 216 k/uL (150-450); RBC 5.11 m/uL (4.30-5.90); RDW 16.2 % (11.5-15.5); WBC 6.3 k/uL (3.8-10.6)
[2022-07-27] MEDS: HEPARIN SODIUM,PORCINE/PF 5,000 UNIT/0.5 ML SYRINGE SQ SCH ×2 (09:04→20:40)
[2022-07-27] MEDS: ASPIRIN 81 MG PO SCH (09:05)
[2022-07-27 11:36] LABS: Chol/HDL Ratio 5.43 Ratio; LDL Cholesterol,Calculated 118.7 mg/dL (0.0-131.0)
[2022-07-27 12:26] LABS: Eosinophils # (M) 0.06 k/uL (0-0.7); Lymphocytes # (M) 1.51 k/uL (1.0-4.8); Monocytes # (M) 0.57 k/uL (0-1.0); Neutrophils # (M) 4.16 k/uL (1.3-7.7); Neutrophils % (M) 66 %; Nucleated Red Blood Cells 0 /100 WBC (0-0); Total Cells Counted 100
--- NOTE | 2022-07-27 12:57 | CA ---
Transthoracic Echo Report Name: Mendoza Euceda Age: 81 Gender: M : 1940 Exam Date: 07/27/2022 09:51 Exam Location: [facility] Ht (in): 70 Wt (lb): 260 Ordering Physician: Angella Willis MD Attending/Referring Phys: [employer] Brenden Cuello RDCS Procedure CPT: Indications: stroke Cardiac Hx: Technical Quality: Fair Contrast 1: Total Dose (mL): Contrast 2: Total Dose (mL): MEASUREMENTS (Male / Female) Normal Values 2D ECHO LV Diastolic Diameter PLAX 4.4 cm 4.2 - 5.9 / 3.9 - 5.3 cm LV Systolic Diameter PLAX 3.2 cm IVS Diastolic Thickness 1.8 cm 0.6 - 1.0 / 0.6 - 0.9 cm RV Internal Dim ED PLAX 2.5 cm M-MODE Aortic Root Diameter MM 3.1 cm LA Systolic Diameter MM 4.9 cm LA Ao Ratio MM 1.6 AV Cusp Separation MM 2.0 cm DOPPLER AV Peak Velocity 97.2 cm/s AV Peak Gradient 3.8 mmHg LVOT Peak Velocity 87.8 cm/s LVOT Peak Gradient 3.1 mmHg MV Area PHT 5.9 cm??? MR Peak Velocity 356.9 cm/s MR Peak Gradient 51.0 mmHg Mitral E Point Velocity 65.8 cm/s Mitral A Point Velocity 76.0 cm/s Mitral E to A Ratio 0.9 MV Deceleration Time 129.4 ms TR Peak Velocity 246.8 cm/s TR Peak Gradient 24.4 mmHg FINDINGS Left Ventricle Severely increased septal wall thickness. Left ventricular ejection fraction is estimated at 50-55 %. Right Ventricle Normal right ventricular size and function. Right ventricular systolic pressure within normal limits. Normal right ventricular global systolic function. Right Atrium Normal right atrial size. Left Atrium Left atrial dilatation. Mitral Valve Mitral valve thickened. Mild mitral regurgitation. Aortic Valve Trileaflet aortic valve. No aortic regurgitation. No aortic stenosis. Tricuspid Valve Mild tricuspid regurgitation. Pulmonic Valve Mild pulmonic regurgitation. Pericardium No pericardial or pleural effusion. Aorta Mild aortic dilatation at the level of the sinuses of valsalva (root). CONCLUSIONS Normal LV function Mild mitral regurgitation Previewed by: Dr. Jeb Morgan MD (Electronically Signed) Final Date: 27 July 2022 12:57
--- NOTE | 2022-07-27 19:21 | P.CNNES ---
History of Present Illness Consult date: 07/27/22 Requesting physician: Booker Goins Reason for Consult: CVA History of Present Illness: Patient is a 81-year-old right-handed male came to the hospital yesterday at 1:52 PM for evaluation of chronic, recurrent episodes of weakness. Patient states he has balance issue for last 1 year. If he kneels down, he cannot get up. His right leg does not support him. Patient states that his right side of the body is weak off and on for last 1 year. Patient states that last 07/22/2022 he was sitting in the chair for an hour, when at around 8 AM when he tried to get up, he felt he lost feeling in his both arms and both legs. When he stood up, he fell to the ground. He could not get up. His both arms and leg s were weak, no control, no feeling. He could not get up. After 10 minutes laying on the floor, his symptoms improved to the point that he was able to get up and sat in the chair. It took almost 1 hour before he was able to walk. Next day on Saturday he was fine. On Saturday, he had transient weakness of the right side that would come and go occurred twice. Saturday he had 1 episode. On , which is yesterday, he was fine in the morning, but he had trouble walking in the afternoon, therefore he decided to come to the ER. Patient denies any numbness of the genital region. He denies any significant urgency frequency or incontinence, although he states that sometimes he leaks urine after passing the urine. Patient denies any slurred speech, facial droop, problem with the vision. Although he does not use any assistive device, but lately he has sometimes been using his dads walker. Patient complains of neck pain 4/10, low back pain 4-5/10, which is bad enough that he has to take Tylenol. He has tried physical therapy off and on for 10 years. He also gets headaches. Complains of sciatic pain in the right leg and also shoulder pain. Vital signs on arrival blood pressure 152/98, pulse 114, temperature 98.1. Blood test shows normal CBC, PT/PTT, normal CMP. TSH is normal. CT head showed age-related atrophy and chronic small vessel ischemic changes without acute pr ocess. EKG shows sinus tachycardia. Home medications include iron, B12 500 g, vitamin D3, levothyroxine. Patient does not take any antiplatelet medication at home. Patient was given aspirin 324 mg in the ER. Patient has never smoked tobacco, does not drink alcohol. Patient has prediabetes for last 10 years, denies hypertension. Patient has low hemoglobin and uses iron infusion for last 2 years. Review of Systems Constitutional: Denies chills, Denies fever Eyes: denies blurred vision, denies pain Ears, nose, mouth and throat: Reports headache, Denies sore throat Cardiovascular: Denies chest pain, Denies shortness of breath Respiratory: Denies cough Gastrointestinal: Denies abdominal pain, Denies diarrhea, Denies nausea, Denies vomiting Musculoskeletal: Reports gait dysfunction, Reports low back pain, Reports muscle weakness, Reports neck pain, Denies myalgias Integumentary: Denies pruritus, Denies rash Neurological: Reports as per HPI Psychiatric: Denies anxiety, Denies depression Endocrine: Denies fatigue, Denies weight change Hematologic/Lymphatic: Denies easy bruising Past Medical History Past Medical History: Eye Disorder, GERD/Reflux, Hyperlipidemia, Thyroid Disorder Additional Past Medical History / Comment(s): "Prediabetes, watching diet, no medications." Bilateral cataracts. History of Any Multi-Drug Resistant Organisms: None Reported Past Surgical History: Cholecystectomy, Heart Catheterization With Stent Additional Past Surgical History / Comment(s): EGD/Colonoscopy. small capsule swallow study Past Anesthesia/Blood Transfusion Reactions: No Reported Reaction Date of Last Stent Placement:: 2012 Past Psychological History: No Psychological Hx Reported Smoking Status: Never smoker Past Alcohol Use History: None Reported Past Drug Use History: None Reported - Past Family History Brother(s) Family Medical History: Cancer Medications and Allergies Home Medications Medication Instructions Recorded Confirmed Type Ferrous Sulfate [Iron (65 MG 325 mg PO HS 04/14/21 07/26/22 History Elemental)] Cholecalciferol [Vitamin D3 (25 25 mcg PO HS 10/07/21 07/26/22 History Mcg = 1000 Iu)] Cyanocobalamin [Vitamin B-12] 500 mcg PO HS 10/07/21 07/26/22 History Levothyroxine Sodium [Synthroid] 300 mcg PO DAILY 10/07/21 07/26/22 History Acetaminophen Tab [Tylenol] 325 mg PO Q6H PRN 07/26/22 07/26/22 History Allergies Allergy/AdvReac Type Severity Reaction Status Date / Time [id number] Reductase Allergy Rash/Hives/Throat Verified 07/26/22 16:46 Inhibitor Swelling/Swelling Physical Examination - Vital Signs Vital Signs: Vital Signs Temp Pulse Pulse Resp BP BP Pulse Ox 07/27/22 12:00 98.1 F 64 18 143/79 98 07/27/22 08:00 98.2 F 90 18 124/74 96 07/27/22 07:37 95 07/27/22 04:00 17 136/80 98 07/26/22 23:54 88 16 128/72 97 07/26/22 19:28 98.2 F 85 18 138/80 99 07/26/22 18:00 71 18 144/77 96 07/26/22 17:00 85 15 156/89 98 07/26/22 16:00 89 20 131/81 95 07/26/22 15:00 91 20 138/80 95 07/26/22 14:30 98 18 148/91 96 07/26/22 14:10 98.2 F 97 20 156/98 97 07/26/22 13:57 98.1 F 114 H 20 152/98 97 Intake and Output 07/26/22 07/27/22 07/27/22 22:59 06:59 14:59 Intake Total 120 Output Total 0 Balance 120 Intake: Oral 120 Output: Gastric Drainage 0 Urine 0 Stool 0 Urine/Stool Mix 0 Emesis 0 Other 0 Other: Voiding Method Toilet Toilet Urinal Urinal # Voids 0 # Bowel Movements 0 Weight 117.934 kg Patient is an elderly male, in no acute distress. Patient is alert awake oriented to time place and person. Speech and language functions are normal. Patient can name and repeat very well. No aphasia, although there may be very minimal questionable dysarthria. Attention, concentration and fund of knowledge is adequate. On cranial nerve examination, pupils are equal, round and reacting to light, visual cuellar are full on confrontation, with no neglect on double simultaneous stimulation. Extraocular muscles are intact with no nystagmus. Face is symmetric, tongue protrudes to the midline. Palatal elevation and sensation normal, hearing and shoulder shrug normal, facial sensation normal. On muscle strength testing, there is no pronator drift and the strength is completely normal in arms and legs distally and proximally. No weakness in any muscles including triceps, hip flexion. Deep tendon reflexes are symmetric biceps 1+, brachioradialis 1+, knees 1+, ankles 0 and plantars are upgoing bilaterally. Sensory to touch is equal with no neglect on double simultaneous stimulation. Cerebellar function showed no ataxia for [id number] testing. No dysdiadochokinesia. No ataxia for [id number] testing on either side. Tone and bulk of muscles normal. Gait deferred.. On general examination, there is no carotid bruit or murmur, S1-S2 audible. Chest is clear on consultation. Abdomen is soft nontender. No organomegaly, bowel sounds present. Peripheral pulses are present. No edema. Results - Laboratory Findings CBC and BMP: 07/27/22 06:51 07/27/22 06:51 Abnormal Lab Findings: Abnormal Labs 07/26/22 07/26/22 07/27/22 14:15 14:15 06:51 RDW 16.2 H Glucose 127 H 119 H AST 16 L Alkaline Phosphatase 144 H Triglycerides 153.00 H HDL Cholesterol 33.70 L 07/27/22 06:51 RDW 16.2 H Glucose AST Alkaline Phosphatase Triglycerides HDL Cholesterol Assessment and Plan Assessment: * 81-year-old male with chronic, recurrent episodes of right-sided weakness, off and on for 1 year. Patient recently had an episode of quadriparesis on Saturday, 5 days prior to arrival, that was severe for 10 minutes but improved in an hour. Since then he has been having increasing episodes of weakness of the right side. TIA in the differential, but less likely. Patient does have chronic neck and back pain. Rule out cervical and/or lumbar spinal stenosis. * History of mild B12 deficiency * History of iron deficiency. Plan: * Patient will undergo MRI of the brain, MRI of cervical and lumbar spine to evaluate for acute stroke, rule out spinal stenosis at the lumbar or cervical spine. * 2-D echo revealed normal left ventricular function, mild MR. EF is normal 50-55%. Left atrial dilation. * CTA head and neck showed: No significant stenosis in the common or internal carotid arteries bilaterally. No significant stenosis, aneurysm at the level of [place]. There is mild to moderate peripheral calcified plaque at the left carotid bulb extending into proximal ICA without significant stenosis. Mild to moderate plaque in the distal left common carotid artery seen. * Check vitamin B12, folate, MMA and B6. Last B12 was borderline 280 on 10/06/2021. Patient already on B12 500 g orally daily prior to arrival. * Fasting a.m. lipid panel cholesterol 183, LDL 118, HDL 33 and triglycerides 153. * Hemoglobin A1c * Patient was given aspirin 324 mg in the ER. Continue aspirin 81 mg. * Close neuro checks as per protocol. * Telemetry monitoring rule out any arrhythmia * DVT prophylaxis: Heparin 5000 units subcu every 12 hours * Dr. Kaufman Will resume neurology service in the morning. Time with Patient: Greater than 30
[2022-07-27] MEDS: ACETAMINOPHEN TAB 325 MG TAB PO PRN (20:38)
[2022-07-27] MEDS: MELATONIN 5 MG TABLET PO SCH (20:39)
[2022-07-27] MEDS: FERROUS SULFATE 325 MG TAB PO SCH (20:40)
[2022-07-27] MEDS: CHOLECALCIFEROL 25 MCG (1000 IU) TABLET PO SCH (20:40)
[2022-07-27] MEDS: CYANOCOBALAMIN 500 MCG TAB PO SCH (20:40)
[2022-07-28] MEDS: LEVOTHYROXINE 100 MCG TAB PO SCH (06:23)
[2022-07-28] MEDS: HEPARIN SODIUM,PORCINE/PF 5,000 UNIT/0.5 ML SYRINGE SQ SCH ×2 (09:10→20:23)
[2022-07-28] MEDS: ASPIRIN 81 MG PO SCH (09:10)
[2022-07-28 11:20] LABS: Appearance,Urine Clear (Clear); Bilirubin,Urine Negative (Negative); Blood,Urine Negative (Negative); Color,Urine Yellow; Glucose,Urine (UA) Trace (Negative); Ketones,Urine Negative (Negative); Leukocyte Esterase,Urine Negative (Negative); Nitrite,Urine Negative (Negative); Protein,Urine Trace (Negative); Specific Gravity,Urine 1.027 (1.001-1.035); Urobilinogen,Urine <2.0 mg/dL (<2.0)
--- NOTE | 2022-07-28 14:04 | MR ---
EXAMINATION TYPE: MR cervical spine wo con DATE OF EXAM: 07/28/2022 INDICATION: Patient age:Male; 81 years old; Reason for study: Recurrent weakness, neck, LBP, stenosis ?CVA; COMPARISON: None. TECHNIQUE: Multi planar, multi sequence imaging was performed utilizing: T1-weighted, T2-weighted, an d turbo inversion recovery imaging of the cervical spine. IV Contrast: None FINDINGS: Alignment: The cervical vertebral bodies have preserved heights. Alignment is within normal limits gi dong patient positioning. Bones: Bone signal is within normal limits. No abnormal inversion recovery signal present. Cord: The spinal cord is unremarkable with regards to their signal intensity and morphology. Discs: Multilevel disc desiccation is present. C2-C3: A disc osteophyte complex is present with mild spinal canal stenosis. No neural foraminal bozena nosis. C3-C4: A disc osteophyte complex is present which minimally narrows the ventral subarachnoid space. Bilateral facet and uncovertebral joint arthropathy are present with mild to moderate bilateral neur al foraminal stenosis. C4-C5: A disc osteophyte complex is present with mild spinal canal stenosis. Bilateral facet and unc overtebral joint arthropathy are present with severe left and mild to moderate right neural foraminal stenosis. C5-C6: No significant disc pathology. The spinal canal is patent. Bilateral facet and uncovertebral joint arthropathy are present with moderate bilateral neural foraminal stenosis. C6-C7: No significant disc pathology. The spinal canal is patent. Bilateral facet and uncovertebral joint arthropathy are present with severe left and mild right neural foraminal stenosis. C7-T1: No significant disc pathology. The spinal canal is patent. No neural foraminal stenosis. Other: None. IMPRESSION: 1. No evidence for disc herniation or significant spinal canal stenosis. 2. 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
--- NOTE | 2022-07-28 14:14 | MR ---
EXAMINATION TYPE: MR brain wo/w con DATE OF EXAM: 07/28/2022 2:00 PM CLINICAL INDICATION:Male, 81 years old with history of Recurrent weakness, neck, LBP, stenosis ?CVA; Recurrent weakness, neck, LBP, stenosis ?CVA. COMPARISON: CT brain 07/26/2022 TECHNIQUE: Multi planar, multi sequence imaging was performed through the brain including: T1, T2, In version recovery, susceptibility weighted imaging and gradient echo imaging and Diffusion weighted im aging. The patient was then given intravenous contrast and multi planar, T1 fat-saturation images wer e obtained. IV Contrast: 12 cc Gadavist FINDINGS: The left paulie demonstrates somewhat irregular wedge-shaped area of restricted diffusion with associat ed high FLAIR signal. No additional diffusion-weighted imaging shows no evidence of restricted diffus ion to suggest acute/subacute infarct. Remote injury to the right cerebral hemisphere. Foci of FLAIR signal. The ventricular system, basal cisterns appear unremarkable. Intracranial arterial flow voids are maintained. Midline structures show no abnormality. Scattered foci of high T2 signal intensity a re seen within the periventricular white matter. The susceptibility weighted images do not reveal any evidence for micro-hemorrhage. After administration of gadolinium, no abnormal enhancement is seen. The bone marrow signal is within normal limits. Paranasal sinuses and mastoid air cells: Mild scattered paranasal sinus disease. Visualized orbits: Orbital contents are intact. The globes are elongated in the anterior posterior di mension. IMPRESSION: 1. Area within the left paulie of restricted diffusion suggesting acute/subacute infarct. 2. No abnormal contrast enhancement. 3. Nonspecific white matter changes, likely related to small vessel ischemic disease 4. Bilateral globe staphylomas
--- NOTE | 2022-07-28 15:23 | P.PN ---
Subjective Progress Note Date: 07/28/22 The patient is an 81-year-old male who is seen in neurologic follow-up on July 28, 2022, via teleneurology. The patient reports that he is feeling well this morning. He says that he was able to walk the halls, with the assistance of a walker. The chart has been reviewed. The patient himself tells me that he has been having intermittent episodes of weakness in his extremities. Last Saturday, he says that when he was attempting to get out of bed in the morning, he had difficulty feeling and moving his legs. He says he was able to get his legs to the edge of the bed and when he attempted to stand, has his legs completely gave out and he fell to the floor. He reports complete loss of strength and sensation in his bilateral lower extremities. The patient denies loss of bowel and bladder control. He says that the sensation and strength gradually returned, over approximately one hour. The patient denies having back pain at that time. The same day, approximately 3 or 4 hours later, the patient noted intermittent weakness in his right leg. The patient does report a history of l ow back pain and right hip pain. He says the pain from his right hip radiates into his right buttock, down his leg and into his ankle. He says that the right hip pain occurs daily. He reports numbness on the bottom of his right foot, which has been present for approximately 3 or 4 years. Objective - Vital Signs Vital signs: Vital Signs Temp 97.3 F L 07/28/22 12:00 Pulse 90 07/28/22 12:00 Resp 16 07/28/22 12:00 BP 120/56 07/28/22 12:00 Pulse Ox 97 07/28/22 12:00 FiO2 Intake & Output 07/27/22 07/28/22 07/28/22 18:59 06:59 18:59 Intake Total 240 Output Total 0 200 500 Balance 240 -200 -500 Intake: Oral 240 Output: Gastric Drainage 0 Urine 0 200 500 Stool 0 Urine/Stool Mix 0 Emesis 0 Other 0 Other: Voiding Method Toilet Toilet # Voids 0 0 # Bowel Movements 0 - Exam Gen.: The patient is seated in the bedside chair. He is well-nourished, well- developed and in no acute distress. HEENT: Head is atraumatic, normocephalic. Fundus not visualized. There is no scleral icterus. Mucous membranes are moist. Neurological examination Mental status: The patient is awake, alert and oriented 3. His speech is clear. Cranial nerves: 2-12 grossly intact - Labs CBC & Chem 7: 07/27/22 06:51 07/27/22 06:51 Labs: Abnormal Lab Results - Last 24 Hours (Table) 07/27/22 07/28/22 Range/Units 19:47 10:30 Folate 3.20 L (4.40-31.00) ng/mL Urine Protein Trace H (Negative) Urine Glucose (UA) Trace H (Negative) Assessment and Plan Assessment: 1. 81-year-old male with chronic, recurrent episodes of right-sided weakness, off and on for 1 year. Patient recently had an episode of quadriparesis on Saturday, 5 days prior to arrival, that was severe for 10 minutes but improved in an hour. Since then he has been having increasing episodes of weakness of the right side. TIA in the differential, but less likely. Patient does have chronic neck and back pain. Rule out cervical and/or lumbar spinal stenosis. 2. Hyperlipidemia with elevated LDL of 118.7 3. B12 deficiency with a B12 level of 291 Plan: 1. Agree with imaging: MRI of brain, C-spine and lumbar spine as the patient's symptoms are difficult to localize to a single neurologic territory 2. The patient should be started on high-dose statin 3. Continue/start dual antiplatelet therapy in light of MRI positive for acute/subacute infarct 4. Would recommend B12 replacement, via injection 5. MRI of lumbar spine is pending at this time Time with Patient: Less than 30 (Spent 20 minutes examining patient, reviewing chart notes, labs and imaging reports as well as writing this note)
--- NOTE | 2022-07-28 17:02 | PN ---
PROGRESS NOTE DATE OF SERVICE: 07/28/2022 SUBJECTIVE: This is an 81-year-old gentleman, admitted with weakness and numbness, being evaluated for TIA/stroke. No chest pain. No palpitations. A brain MRI was done today, which showed left paulie subacute infarct. No chest pain. No palpitation. OBJECTIVE: VITAL SIGNS: Pulse is 90, blood pressure 130/56, respirations 16. CHEST: Clear to auscultation. CARDIOVASCULAR: S1 and S2. ABDOMEN: Soft. NERVOUS SYSTEM: Nonfocal. LABORATORY DATA: Reviewed. ASSESSMENT: 1. Tingling and numbness with possibly left pontine infarct with vertebrobasilar stroke. 2. Speech difficulties. 3. Hyperlipidemia. 4. Hypothyroidism. 5. Multiple medical issues. RECOMMENDATIONS: Recommend to continue current medications and symptomatic treatment. Otherwise, at this time, continue the antiplatelet agents and increase ambulation once the patient is stable and okay with Neurology. Possibly, discharge in the next 24 hours if stable, but overall prognosis is guarded. MMODL / IJN: [id number] /
[2022-07-28] MEDS: CHOLECALCIFEROL 25 MCG (1000 IU) TABLET PO SCH (20:23)
[2022-07-28] MEDS: MELATONIN 5 MG TABLET PO SCH (20:23)
[2022-07-28] MEDS: FERROUS SULFATE 325 MG TAB PO SCH (20:23)
[2022-07-28] MEDS: CYANOCOBALAMIN 500 MCG TAB PO SCH (20:23)
[2022-07-29] MEDS: LEVOTHYROXINE 100 MCG TAB PO SCH (06:58)
[2022-07-29] MEDS: HEPARIN SODIUM,PORCINE/PF 5,000 UNIT/0.5 ML SYRINGE SQ SCH (08:42)
[2022-07-29] MEDS: ASPIRIN 81 MG PO SCH (08:42)
[2022-07-29 08:50] VITALS: RESP 16
[2022-07-29] MEDS ORDERED: CLOPIDOGREL 75 MG TAB PO SCH (09:00)
[2022-07-29 09:43] LABS: ALT 18 U/L (4-49); AST 19 U/L (17-59); African American GFR (CKD) >90 (>60 ml/min/1.73 sqM); Albumin 3.9 g/dL (3.5-5.0); Alkaline Phosphatase 113 U/L (38-126); Anion Gap 6 mmol/L; Blood Urea Nitrogen 16 mg/dL (9-20); Calcium 9.1 mg/dL (8.4-10.2); Carbon Dioxide 27 mmol/L (22-30); Chloride 104 mmol/L (98-107); Glucose 131 mg/dL (74-99); Non-African American GFR(CKD) 82 (>60 ml/min/1.73 sqM); Potassium 3.7 mmol/L (3.5-5.1); Sodium 137 mmol/L (137-145); Total Bilirubin 0.4 mg/dL (0.2-1.3); Total Protein 6.9 g/dL (6.3-8.2)
[2022-07-29 09:50] LABS: Anisocytosis Slight; HCT 45.9 % (39.0-53.0); HGB 15.4 gm/dL (13.0-17.5); MCH 28.9 pg (25.0-35.0); MCHC 33.5 g/dL (31.0-37.0); MCV 86.1 fL (80.0-100.0); Platelet Count 214 k/uL (150-450); RBC 5.33 m/uL (4.30-5.90); RDW 16.7 % (11.5-15.5); WBC 6.7 k/uL (3.8-10.6)
[2022-07-29 10:28] LABS: Eosinophils # (M) 0.07 k/uL (0-0.7); Lymphocytes # (M) 2.68 k/uL (1.0-4.8); Monocytes # (M) 0.27 k/uL (0-1.0); Neutrophils # (M) 3.69 k/uL (1.3-7.7); Neutrophils % (M) 55 %; Nucleated Red Blood Cells 0 /100 WBC (0-0); Poikilocytosis (M) Present; Polychromasia Present; Total Cells Counted 100
[2022-07-29 12:25] VITALS: BP 129/79; PULSE 69; TEMP 98
--- NOTE | 2022-07-29 20:14 | DS ---
DISCHARGE SUMMARY FINAL DIAGNOSES: 1. 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 2. Speech difficulties. 3. Hypertension. 4. Hypothyroidism. 5. Multiple medical issues. DISCHARGE DISPOSITION: The patient will be discharged in stable condition with guarded prognosis. He is being cleared by Neurology. HISTORY OF PRESENT ILLNESS: This is an 81-year-old gentleman, admitted with multiple symptoms including tingling, weakness, and speech difficulties. MRA showed left pontine infarct. The patient was stable, improved. Neurology saw the patient, cleared the patient for discharge. PHYSICAL EXAMINATION: VITAL SIGNS: Stable. CARDIOVASCULAR: S1, S2. ABDOMEN: Soft. NERVOUS SYSTEM: No focal deficits. The patient will be discharged to home with the following medications. Continue the home medications and new medications. 1. Aspirin 81 mg p.o. daily. 2. Plavix 70 mg p.o. daily. 3. Protonix 40 mg p.o. daily. Follow up with Dr. Otero in 1 to 2 days. Follow up with Dr. Dilcia Hermosillo, Neurology in 1 week. The patient is stable. Overall prognosis guarded. MMODL / IJN: [id number] /
== END 2022-07-29 14:09 | disposition home or self-care (01) | DRG 64 ==
LOC: EC 13:52 → 3SCARD 16:10
PROVIDERS: ADMIT Hospitalist; ATTEND Hospitalist
DX: I63.29 Cerebral infarction due to unspecified occlusion or stenosis of other precerebral arteries (principal); G82.50 Quadriplegia, unspecified; E87.1 Hypo-osmolality and hyponatremia; R53.1 Weakness; M54.40 Lumbago with sciatica, unspecified side; I10 Essential (primary) hypertension; G89.29 Other chronic pain; G43.909 Migraine, unspecified, not intractable, without status migrainosus; W18.30XA Fall on same level, unspecified, initial encounter; Z79.890 Hormone replacement therapy; Z88.8 Allergy status to other drugs, medicaments and biological substances; E78.5 Hyperlipidemia, unspecified; E53.8 Deficiency of other specified B group vitamins; E03.9 Hypothyroidism, unspecified; D64.9 Anemia, unspecified; R00.0 Tachycardia, unspecified; G31.89 Other specified degenerative diseases of nervous system; D50.9 Iron deficiency anemia, unspecified; K21.9 Gastro-esophageal reflux disease without esophagitis; R73.03 Prediabetes; I08.1 Rheumatic disorders of both mitral and tricuspid valves
CPT/HCPCS: 36415; 70450; 70496; 70498; 70553; 72141; 80053; 80061; 81003; 82607; 82746; 83735; 83921; 84207; 84443; 85025; 85610; 85730; 93005; 93306; 94760; 99285

== ENCOUNTER 2022-10-02 19:14 | Inpatient (IN) | payer MEDICARE, OTHER ==
[2022-10-02 20:41] LABS: Anisocytosis Slight; HCT 26.7 % (39.0-53.0); Hypochromasia Marked; MCHC 28.5 g/dL (31.0-37.0); Mean Platelet Volume 9.3; Microcytosis Slight; Poikilocytosis Marked; RBC 3.47 m/uL (4.30-5.90); RDW 16.3 % (11.5-15.5); WBC 8.8 k/uL (3.8-10.6)
[2022-10-02 20:49] LABS: ALT 24 U/L (4-49); AST 21 U/L (17-59); African American GFR (CKD) >90 (>60 ml/min/1.73 sqM); Albumin 3.8 g/dL (3.5-5.0); Alkaline Phosphatase 122 U/L (38-126); Anion Gap 8 mmol/L; Blood Urea Nitrogen 20 mg/dL (9-20); Calcium 8.7 mg/dL (8.4-10.2); Carbon Dioxide 26 mmol/L (22-30); Chloride 104 mmol/L (98-107); Glucose 132 mg/dL (74-99); Non-African American GFR(CKD) 85 (>60 ml/min/1.73 sqM); Potassium 4.2 mmol/L (3.5-5.1); Sodium 138 mmol/L (137-145); Total Bilirubin 0.4 mg/dL (0.2-1.3); Total Protein 6.5 g/dL (6.3-8.2)
[2022-10-02 20:57] LABS: INR 0.9 (<1.2); Partial Thromboplastin Time 21.7 sec (22.0-30.0); Prothrombin Time 9.9 sec (9.0-12.0)
[2022-10-02 21:09] LABS: HGB 7.6 gm/dL (13.0-17.5); MCV 77.2 fL (80.0-100.0); Platelet Count 301 k/uL (150-450)
[2022-10-02 21:24] LABS: Eosinophils # (M) 0.09 k/uL (0-0.7); Lymphocytes # (M) 0.88 k/uL (1.0-4.8); Monocytes # (M) 0.53 k/uL (0-1.0); Neutrophils % (M) 83 %; Nucleated Red Blood Cells 0 /100 WBC (0-0); Total Cells Counted 100
[2022-10-02 21:25] LABS: Poikilocytosis (M) Present
--- NOTE | 2022-10-02 23:47 | XR ---
EXAMINATION TYPE: XR chest 2V DATE OF EXAM: 10/02/2022 11:39 PM COMPARISON: Chest radiographs from 08/03/2022. TECHNIQUE: XR chest 2V Frontal and lateral views of the chest. CLINICAL INDICATION:Male, 82 years old with history of Weakness; FINDINGS: Lungs/Pleura: Prominent interstitial lung markings are seen scattered throughout the lungs. No eviden ce of focal consolidation, pneumothorax or pleural effusion. Pulmonary vascularity: Unremarkable. Heart/mediastinum: Cardiomediastinal silhouette is unremarkable. Musculoskeletal: No acute osseous pathology. IMPRESSION: Chronic changes without acute pulmonary process. No significant change from prior.
[2022-10-03] MEDS ORDERED: NALOXONE 0.4 MG/ML 1 ML VIAL IV PRN (01:45)
--- NOTE | 2022-10-03 01:49 | ED ---
General Adult HPI - General Chief complaint: Weakness Stated complaint: weakness Source: patient, family Mode of arrival: wheelchair Limitations: no limitations - History of Present Illness Initial comments: This is an 82-year-old male with a past medical history including previous CVA and hypertension presented to the emergency department for "feeling crappy." The patient stated that he was having exertional dyspnea as well as body aches since the afternoon and stated this is happened the last time that his blood levels were low. The patient also stated that he had some soreness in his legs however denied any lightheadedness or dizziness. The patient denied any fevers or chills. The patient denied any dark or red or bloody stools. The patient however was resting in bed comfortably without any further acute distress. - Related Data Home Medications Medication Instructions Recorded Confirmed Ferrous Sulfate [Iron (65 MG 325 mg PO W/LUNCH 04/14/21 10/02/22 Elemental)] Cholecalciferol [Vitamin D3 (25 25 mcg PO W/LUNCH 10/07/21 10/02/22 Mcg = 1000 Iu)] Cyanocobalamin [Vitamin B-12] 500 mcg PO W/LUNCH 10/07/21 10/02/22 Levothyroxine Sodium [Synthroid] 300 mcg PO DAILY 10/07/21 10/02/22 Acetaminophen Tab [Tylenol] 325 mg PO Q6H PRN 07/26/22 10/02/22 Ezetimibe [Zetia] 10 mg PO HS 10/02/22 10/02/22 Folic Acid 1 mg PO W/LUNCH 10/02/22 10/02/22 Nitroglycerin Sl Tabs [Nitrostat] 0.4 mg SUBLINGUAL Q5M PRN 10/02/22 10/02/22 Pyridoxine [Vitamin B-6] 50 mg PO W/LUNCH 10/02/22 10/02/22 methylPREDNISolone Dose Pack See Taper PO DIRECTED 10/02/22 10/02/22 [Medrol Dose Pack] Previous Rx's Medication Instructions Recorded Aspirin 81 mg PO DAILY #30 tab 07/29/22 Pantoprazole Sodium [Protonix] 40 mg PO DAILY #30 tab 07/29/22 Ticagrelor [Brilinta] 90 mg PO BID #60 tab 08/07/22 Allergies Allergy/AdvReac Type Severity Reaction Status Date / Time Hihpvwy-QIA-IyS Reductase Allergy Rash/Hives/Throat Verified 10/02/22 21:45 Inhibitor Swelling/Swelling Review of Systems ROS Statement: Those systems with pertinent positive or pertinent negative responses have been documented in the HPI. ROS Other: All systems not noted in ROS Statement are negative. Past Medical History Past Medical History: CVA/TIA, Eye Disorder, GERD/Reflux, Hyperlipidemia, Thyroid Disorder Additional Past Medical History / Comment(s): "Prediabetes, watching diet, no medications." Bilateral cataracts. COVID- 2022 History of Any Multi-Drug Resistant Organisms: None Reported Past Surgical History: Cholecystectomy, Heart Catheterization With Stent Additional Past Surgical History / Comment(s): EGD/Colonoscopy. small capsule swallow study Past Anesthesia/Blood Transfusion Reactions: No Reported Reaction Date of Last Stent Placement:: 2012 Past Psychological History: No Psychological Hx Reported Smoking Status: Never smoker Past Alcohol Use History: None Reported Past Drug Use History: None Reported - Past Family History Brother(s) Family Medical History: Cancer General Exam Limitations: no limitations General appearance: alert, in no apparent distress Head exam: Present: atraumatic, normocephalic, normal inspection Eye exam: Present: normal appearance, PERRL Pupils: Present: normal accommodation ENT exam: Present: normal exam, normal oropharynx, mucous membranes moist Neck exam: Present: normal inspection, full ROM Respiratory exam: Present: normal lung sounds bilaterally Cardiovascular Exam: Present: regular rate, normal rhythm, normal heart sounds GI/Abdominal exam: Present: soft, normal bowel sounds Extremities exam: Present: normal inspection, full ROM Back exam: Present: normal inspection, full ROM Neurological exam: Present: alert, oriented X3, CN II-XII intact Psychiatric exam: Present: normal affect, normal mood Skin exam: Present: warm, dry Course Vital Signs 10/02/22 10/02/22 10/02/22 19:49 21:54 23:44 Temperature 98.4 F Pulse Rate 107 H 92 Pulse Rate [ 80 Marketing Producer ] Respiratory 20 18 Rate Blood Pressure 114/69 136/62 O2 Sat by Pulse 100 99 Oximetry EKG Findings - EKG Comments: EKG Findings:: An EKG was obtained and was interpreted by myself showing a rate of 100, MO interval 146, QRS duration of 94 and QTC of 4:15. This EKG showed a sinus tachycardia without any ST segment elevation or depression noted. There was occasional PVCs. Medical Decision Making - Medical Decision Making Was pt. sent in by a medical professional or institution ([facility], [facility], urgent care, hospital, or half-way...) When possible be specific @ -No Did you speak to anyone other than the patient for history (EMS, parent, family, police, friend...)? What history was obtained from this source @ -Yes, patient family Did you review nursing and triage notes (agree or disagree)? Why? @ -I reviewed and agree with nursing and triage notes Were old charts reviewed (outside hosp., previous admission, EMS record, old EKG, old radiological studies, urgent care reports/EKG's, half-way records)? Report findings @ -No old charts were reviewed Differential Diagnosis (chest pain, altered mental status, abdominal pain women, abdominal pain men, vaginal bleeding, weakness, fever, dyspnea, syncope, headache, dizziness, GI bleed, back pain, seizure, CVA, palpatations, mental health)? @ -GI bleed, symptomatically anemia, COVID-19 EKG interpreted by me (3pts min.). @ -As above X-rays interpreted by me (1pt min.). @ -Chest x-ray was obtained and was interpreted by myself showing chronic changes without acute pulmonary process. There was no significant change from prior. CT interpreted by me (1pt min.). @ -None done U/S interpreted by me (1pt. min.). @ -None done What testing was considered but not performed or refused? (CT, X-rays, U/S, labs)? Why? @ -None What meds were considered but not given or refused? Why? @ -None Did you discuss the management of the patient with other professionals (professionals i.e. [facility] Mcrae, [facility], lab, RT, psych nurse, social service coordinator, theater teacher, teacher, asset protection officer, leather case finisher)? Give summary @ -Yes, admitting physician Was smoking cessation discussed for >3mins.? @ -No Was critical care preformed (if so, how long)? @ -No Were there social determinants of health that impacted care today? How? (Homelessness, low income, unemployed, alcoholism, drug addiction, transportation, low edu. Level, literacy, decrease access to med. care, [facility], rehab)? @ -No Was there de-escalation of care discussed even if they declined (Discuss DNR or withdrawal of care, Hospice)? DNR status @ -No What co-morbidities impacted this encounter? (DM, HTN, Smoking, COPD, CAD, Cancer, CVA, ARF, Chemo, Hep., AIDS, mental health diagnosis, sleep apnea, mor bid obesity)? @ -Previous CVA, hypertension Was patient admitted / discharged? Hospital course, mention meds given and route, prescriptions, significant lab abnormalities, going to OR and other pertinent info. @ -The patient was seen and evaluated in the emergency department. Physical exam, the patient was resting in bed without any acute distress. Vital signs on admission were stable. Laboratory workup was obtained. Swabs were negative for any viral etiology. The patient's hemoglobin however was 7.6 and was significantly decreased from his previous 11 level. The patient was able to walk with minimal assistance emergency department however stated he had continued overall weakness and body aches. The patient likely had synthetic anemia as he had a significantly decreased hemoglobin from previous levels. The patient has a known history of significant a drops hemoglobin without any known etiology. The patient denied complain of any dark stools nor any bloody stools. Due to the patient's synthetic anemia, the patient was given 1 unit of packed red blood cells. The patient's primary care physician was also contacted and agreed to accept the patient for admission. Dr. Otero was contacted and accepted the patient but did request consultation by gastroenterology and hematology. The patient was told of this plan and was agreeable. The patient was admitted in stable condition. Undiagnosed new problem with uncertain prognosis? @ -No Drug Therapy requiring intensive monitoring for toxicity (Heparin, Nitro, Insulin, Cardizem)? @ -No Were any procedures done? @ -No Diagnosis/symptom? @ - Symptomatic anemia Acute, or Chronic, or Acute on Chronic? @ -Acute Uncomplicated (without systemic symptoms) or Complicated (systemic symptoms)? @ -Complicated Side effects of treatment? @ -No Exacerbation, Progression, or Severe Exacerbation? @ -No Poses a threat to life or bodily function? How? (Chest pain, [place], [place], pneumonia, PE, COPD, DKA, ARF, appy, cholecystitis, CVA, Diverticulitis, Homicidal, Suicidal, threat to staff... and all critical care pts) @ -Yes, continued anemia can lead to permanent organ damage and possible . - Lab Data Result diagrams: 10/02/22 20:20 10/02/22 20:20 Lab Results 10/02/22 10/02/22 10/02/22 Range/Units 20:20 20:20 20:20 WBC 8.8 (3.8-10.6) k/uL RBC 3.47 L (4.30-5.90) m/uL Hgb 7.6 L D (13.0-17.5) gm/dL Hct 26.7 L (39.0-53.0) % MCV 77.2 L D (80.0-100.0) fL MCH 22.0 L (25.0-35.0) pg MCHC 28.5 L (31.0-37.0) g/dL RDW 16.3 H (11.5-15.5) % Plt Count 301 D (150-450) k/uL MPV 9.3 Neutrophils % (Manual) 83 % Lymphocytes % (Manual) 10 % Monocytes % (Manual) 6 % Eosinophils % (Manual) 1 % Neutrophils # (Manual) 7.30 (1.3-7.7) k/uL Lymphocytes # (Manual) 0.88 L (1.0-4.8) k/uL Monocytes # (Manual) 0.53 (0-1.0) k/uL Eosinophils # (Manual) 0.09 (0-0.7) k/uL Nucleated RBCs 0 (0-0) /100 WBC Manual Slide Review Performed Hypochromasia Marked Poikilocytosis Marked Poikilocytosis (manual Present Anisocytosis Slight Microcytosis Slight PT 9.9 (9.0-12.0) sec INR 0.9 (<1.2) APTT 21.7 L (22.0-30.0) sec Sodium 138 (137-145) mmol/L Potassium 4.2 (3.5-5.1) mmol/L Chloride 104 (98-107) mmol/L Carbon Dioxide 26 (22-30) mmol/L Anion Gap 8 mmol/L BUN 20 (9-20) mg/dL Creatinine 0.79 (0.66-1.25) mg/dL Est GFR (CKD-EPI)AfAm >90 (>60 ml/min/1.73 sqM) Est GFR (CKD-EPI)NonAf 85 (>60 ml/min/1.73 sqM) Glucose 132 H (74-99) mg/dL Plasma Lactic Acid Chuck (0.7-2.0) mmol/L Calcium 8.7 (8.4-10.2) mg/dL Magnesium 2.0 (1.6-2.3) mg/dL Total Bilirubin 0.4 (0.2-1.3) mg/dL AST 21 (17-59) U/L ALT 24 (4-49) U/L Alkaline Phosphatase 122 (38-126) U/L Troponin I (0.000-0.034) ng/mL NT-Pro-B Natriuret Pep pg/mL Total Protein 6.5 (6.3-8.2) g/dL Albumin 3.8 (3.5-5.0) g/dL Influenza Type A (PCR) (Not Detectd) Influenza Type B (PCR) (Not Detectd) RSV (PCR) (Not Detectd) SARS-CoV-2 (PCR) (Not Detectd) 10/02/22 10/02/22 10/02/22 Range/Units 20:20 20:20 20:20 WBC (3.8-10.6) k/uL RBC (4.30-5.90) m/uL Hgb (13.0-17.5) gm/dL Hct (39.0-53.0) % MCV (80.0-100.0) fL MCH (25.0-35.0) pg MCHC (31.0-37.0) g/dL RDW (11.5-15.5) % Plt Count (150-450) k/uL MPV Neutrophils % (Manual) % Lymphocytes % (Manual) % Monocytes % (Manual) % Eosinophils % (Manual) % Neutrophils # (Manual) (1.3-7.7) k/uL Lymphocytes # (Manual) (1.0-4.8) k/uL Monocytes # (Manual) (0-1.0) k/uL Eosinophils # (Manual) (0-0.7) k/uL Nucleated RBCs (0-0) /100 WBC Manual Slide Review Hypochromasia Poikilocytosis Poikilocytosis (manual Anisocytosis Microcytosis PT (9.0-12.0) sec INR (<1.2) APTT (22.0-30.0) sec Sodium (137-145) mmol/L Potassium (3.5-5.1) mmol/L Chloride (98-107) mmol/L Carbon Dioxide (22-30) mmol/L Anion Gap mmol/L BUN (9-20) mg/dL Creatinine (0.66-1.25) mg/dL Est GFR (CKD-EPI)AfAm (>60 ml/min/1.73 sqM) Est GFR (CKD-EPI)NonAf (>60 ml/min/1.73 sqM) Glucose (74-99) mg/dL Plasma Lactic Acid Chuck 1.4 (0.7-2.0) mmol/L Calcium (8.4-10.2) mg/dL Magnesium (1.6-2.3) mg/dL Total Bilirubin (0.2-1.3) mg/dL AST (17-59) U/L ALT (4-49) U/L Alkaline Phosphatase (38-126) U/L Troponin I <0.012 (0.000-0.034) ng/mL NT-Pro-B Natriuret Pep 401 pg/mL Total Protein (6.3-8.2) g/dL Albumin (3.5-5.0) g/dL Influenza Type A (PCR) (Not Detectd) Influenza Type B (PCR) (Not Detectd) RSV (PCR) (Not Detectd) SARS-CoV-2 (PCR) (Not Detectd) 10/02/22 Range/Units 23:47 WBC (3.8-10.6) k/uL RBC (4.30-5.90) m/uL Hgb (13.0-17.5) gm/dL Hct (39.0-53.0) % MCV (80.0-100.0) fL MCH (25.0-35.0) pg MCHC (31.0-37.0) g/dL RDW (11.5-15.5) % Plt Count (150-450) k/uL MPV Neutrophils % (Manual) % Lymphocytes % (Manual) % Monocytes % (Manual) % Eosinophils % (Manual) % Neutrophils # (Manual) (1.3-7.7) k/uL Lymphocytes # (Manual) (1.0-4.8) k/uL Monocytes # (Manual) (0-1.0) k/uL Eosinophils # (Manual) (0-0.7) k/uL Nucleated RBCs (0-0) /100 WBC Manual Slide Review Hypochromasia Poikilocytosis Poikilocytosis (manual Anisocytosis Microcytosis PT (9.0-12.0) sec INR (<1.2) APTT (22.0-30.0) sec Sodium (137-145) mmol/L Potassium (3.5-5.1) mmol/L Chloride (98-107) mmol/L Carbon Dioxide (22-30) mmol/L Anion Gap mmol/L BUN (9-20) mg/dL Creatinine (0.66-1.25) mg/dL Est GFR (CKD-EPI)AfAm (>60 ml/min/1.73 sqM) Est GFR (CKD-EPI)NonAf (>60 ml/min/1.73 sqM) Glucose (74-99) mg/dL Plasma Lactic Acid Chuck (0.7-2.0) mmol/L Calcium (8.4-10.2) mg/dL Magnesium (1.6-2.3) mg/dL Total Bilirubin (0.2-1.3) mg/dL AST (17-59) U/L ALT (4-49) U/L Alkaline Phosphatase (38-126) U/L Troponin I (0.000-0.034) ng/mL NT-Pro-B Natriuret Pep pg/mL Total Protein (6.3-8.2) g/dL Albumin (3.5-5.0) g/dL Influenza Type A (PCR) Not Detected (Not Detectd) Influenza Type B (PCR) Not Detected (Not Detectd) RSV (PCR) Not Detected (Not Detectd) SARS-CoV-2 (PCR) Not Detected (Not Detectd) Disposition Clinical Impression: Symptomatic anemia Disposition: ADMITTED IP TO THIS [facility] Condition: Stable Is patient prescribed a controlled substance at d/c from ED?: No Referrals: Solitario Otero MD [Primary Care Provider] - 1-2 days Time of Disposition: 00:30 Decision to Admit Reason: Admit from EC Decision Date: 10/03/22 Decision Time: 00:30
[2022-10-03] MEDS ORDERED: ACETAMINOPHEN TAB 325 MG TAB PO STA (03:18)
--- NOTE | 2022-10-03 11:28 | P.CONS ---
History of Present Illness - Reason for Consult Consult date: 10/03/22 Symptomatic anemia Requesting physician: Mauricio Mckeon - Chief Complaint Dyspnea, fatigue - History of Present Illness This a pleasant 82-year-old male with long-standing history of anemia, coronary artery disease with cardiac stent,, hyperlipidemia, hypothyroidism, GERD, and TIA on Brilinta who presented to the emergency department last night with complaints of shortness of breath with exertion, muscle cramping, and increased fatigue. This workup CBC was obtained and patient was found to be anemic with a hemoglobin of 7.6. Patient has had multiple workups in the past for this symptomatic anemia, positive stool for occult blood with his last EGD with Dr. Martínez on 10/09/2021 with findings of hiatal hernia, esophagitis with no old blood or active blood seen. On 04/17/2021 Dr. Ambrosio did an EGD for anemia with findings of a duodenal ulcer without any active bleeding and gastritis. Again for symptomatic anemia, melena patient had an EGD and colonoscopy on 08/16/[address] Morgan. EGD findings included antral ulcer without bleeding, antral gastritis and colonoscopy with findings of ascending colon polyp status post polypectomy and sigmoid diverticulosis. patient also underwent a small bowel capsule endoscopy to 1820 however report not available at this time. Patient denies any blood in his stool states it is dark and has been dark in the same since he was started on oral iron. Patient did have 2 recent TIAs and was started on Brilinta. He denies any abdominal pain, nausea, or vomiting. Currently denies any shortness of breath or chest pain at rest. Patient currently receiving 1 unit of blood Labs WBC 8.8 hemoglobin 7.6 hematocrit 26 platelet count 301,000 INR 0.9 sodium 138 potassium 4.2 BUN 20 creatinine 0.79 total bilirubin 0.4 AST 21 ALT 24 alkaline phosphatase 122 Review of Systems REVIEW OF SYSTEMS: CARDIOPULMONARY: No chest pain or shortness of breath. Gastrointestinal: No epigastric pain, no abdominal pain. No nausea or vomiting. No hematemesis, coffee-ground emesis. No rectal bleeding, or melena. GENITOURINARY: No dysuria or hematuria. MUSCULOSKELETAL: Reports normal range of motion., Joint pain. SKIN: No rashes. No jaundice. ENDOCRINE: No chills, fevers. No excessive weight gain or loss. No polydipsia or polyuria. PSYCHIATRIC: Unremarkable. NEUROLOGY: No change in mental status. Denies dizziness, headache. ENT: Vision unremarkable. CONSTITUTIONAL: No recent weight loss. No fever, chills, night sweats. Past Medical History Past Medical History: CVA/TIA, Eye Disorder, GERD/Reflux, Hyperlipidemia, Thyroid Disorder Additional Past Medical History / Comment(s): "Prediabetes, watching diet, no m edications." Bilateral cataracts. COVID- 2022 History of Any Multi-Drug Resistant Organisms: None Reported Past Surgical History: Cholecystectomy, Heart Catheterization With Stent Additional Past Surgical History / Comment(s): EGD/Colonoscopy. small capsule swallow study Past Anesthesia/Blood Transfusion Reactions: No Reported Reaction Date of Last Stent Placement:: 2012 Past Psychological History: No Psychological Hx Reported Smoking Status: Never smoker Past Alcohol Use History: None Reported Past Drug Use History: None Reported - Past Family History Brother(s) Family Medical History: Cancer Medications and Allergies Home Medications Medication Instructions Recorded Confirmed Type Ferrous Sulfate [Iron (65 MG 325 mg PO W/LUNCH 04/14/21 10/02/22 History Elemental)] Cholecalciferol [Vitamin D3 (25 25 mcg PO W/LUNCH 10/07/21 10/02/22 History Mcg = 1000 Iu)] Cyanocobalamin [Vitamin B-12] 500 mcg PO W/LUNCH 10/07/21 10/02/22 History Levothyroxine Sodium [Synthroid] 300 mcg PO DAILY 10/07/21 10/02/22 History Acetaminophen Tab [Tylenol] 325 mg PO Q6H PRN 07/26/22 10/02/22 History Aspirin 81 mg PO DAILY #30 tab 07/29/22 10/02/22 Rx Pantoprazole Sodium [Protonix] 40 mg PO DAILY #30 tab 07/29/22 10/02/22 Rx Ticagrelor [Brilinta] 90 mg PO BID #60 tab 08/07/22 10/02/22 Rx Ezetimibe [Zetia] 10 mg PO HS 10/02/22 10/02/22 History Folic Acid 1 mg PO W/LUNCH 10/02/22 10/02/22 History Nitroglycerin Sl Tabs [Nitrostat] 0.4 mg SUBLINGUAL Q5M PRN 10/02/22 10/02/22 History Pyridoxine [Vitamin B-6] 50 mg PO W/LUNCH 10/02/22 10/02/22 History methylPREDNISolone Dose Pack See Taper PO DIRECTED 10/02/22 10/02/22 History [Medrol Dose Pack] Allergies Allergy/AdvReac Type Severity Reaction Status Date / Time Fubquve-[id number]-[id number] Reductase Allergy Rash/Hives/Throat Verified 10/02/22 21:45 Inhibitor Swelling/Swelling Physical Exam Vitals: Vital Signs Temp Pulse Pulse Resp BP Pulse Ox 10/03/22 06:36 98.4 F 96 16 118/68 10/03/22 05:00 98.2 F 83 16 119/66 97 10/03/22 04:00 98.6 F 91 16 114/68 96 10/03/22 03:28 97.9 F 79 16 128/60 10/03/22 03:08 98.3 F 92 16 120/68 10/03/22 03:00 98.1 F 96 16 122/69 97 10/03/22 02:56 98.3 F 97 16 122/69 10/02/22 23:44 92 18 136/62 99 10/02/22 21:54 80 10/02/22 19:49 98.4 F 107 H 20 114/69 100 Intake and Output 10/02/22 10/03/22 10/03/22 22:59 06:59 14:59 Intake Total 310 Balance 310 Intake: Blood Product 310 Rc As-1 Unit 310 [id number] Other: Weight 109.769 kg General appearance: The patient is alert, oriented, appears in no acute distress. HET: Head is normocephalic and atraumatic. Conjunctiva pink. Sclera anicteric. Neck: Supple without lymphadenopathy. Trachea midline. Heart: S1 S2. Regular rate and rhythm. Lungs: Clear to auscultation. Abdomen: Soft, nontender, nondistended with bowel sounds. No guarding or rigidity. Skin: No rashes. No jaundice. Extremities: Normal skin color and turgor. No pedal edema. Neurological: No focal deficits. Alert and oriented x3. Results CBC & Chem 7: 10/02/22 20:20 10/02/22 20:20 Labs: Abnormal Lab Results - Last 24 Hours (Table) 10/02/22 10/02/22 10/02/22 Range/Units 20:20 20:20 20:20 RBC 3.47 L (4.30-5.90) m/uL Hgb 7.6 L D (13.0-17.5) gm/dL Hct 26.7 L (39.0-53.0) % MCV 77.2 L D (80.0-100.0) fL MCH 22.0 L (25.0-35.0) pg MCHC 28.5 L (31.0-37.0) g/dL RDW 16.3 H (11.5-15.5) % Lymphocytes # (Manual) 0.88 L (1.0-4.8) k/uL APTT 21.7 L (22.0-30.0) sec Glucose 132 H (74-99) mg/dL Crossmatch 10/03/22 Range/Units 01:12 RBC (4.30-5.90) m/uL Hgb (13.0-17.5) gm/dL Hct (39.0-53.0) % MCV (80.0-100.0) fL MCH (25.0-35.0) pg MCHC (31.0-37.0) g/dL RDW (11.5-15.5) % Lymphocytes # (Manual) (1.0-4.8) k/uL APTT (22.0-30.0) sec Glucose (74-99) mg/dL Crossmatch See Detail Assessment and Plan (1) Symptomatic anemia Narrative/Plan: 2-year-old male with multiple comorbidities including 2 recent TIAs who was started on purulent, presented to the emergency department with shortness of breath and fatigue who was noted to have symptomatic microcytic anemia. Patient has had chronic anemia in the past, with reports of melena and has undergone multiple endoscopic evaluations without any findings of bleeding. Patient was started on iron supplements when started on his Olla time and states his st ools have been dark but they are not black and there is no blood. He denies any abdominal pain, nausea, or vomiting. He has had findings of antral ulcer in the past without any active bleeding, need to consider this as a possible etiology for microcytic anemia. Due to patient being on antiplatelet therapy and need for that regarding recent TIAs would recommend proceeding with upper endoscopy. Anemia workup ordered as well. Current Visit: Yes Status: Acute Code(s): D64.9 - ANEMIA, UNSPECIFIED SNOMED Code(s): 631365367 (2) Microcytic anemia Current Visit: Yes Status: Acute Code(s): D50.9 - IRON DEFICIENCY ANEMIA, UNSPECIFIED SNOMED Code(s): 638828329 (3) History of TIA (transient ischemic attack) Current Visit: Yes Status: Acute Code(s): Z86.73 - PRSNL HX OF TIA (TIA), AND CEREB INFRC W/O RESID DEFICITS SNOMED Code(s): 755799978 (4) History of coronary artery disease Current Visit: No Status: Acute Code(s): Z86.79 - PERSONAL HISTORY OF OTHER DISEASES OF THE CIRCULATORY SYSTEM SNOMED Code(s): 046289283 Plan: 1. Continue symptomatic and supportive care 2. Daily CBCs, transfuse for hemoglobin less than 7 3. Anemia workup ordered 4. Hold Brilinta for EGD 5. Keep nothing by mouth 6. Patient scheduled for EGD this afternoon 7. Continue with recommendations from hematology 8. Protonix 40 mg daily for GI prophylaxis 9. Further recommendations following EGD Thank you for this consultation, we will continue to follow. Dr. Salome Morgan I agree with the dictator's note, documented as a scribe by Flori Pagan.
[2022-10-03] MEDS ORDERED: SODIUM CHLORIDE 0.9% 500 ML 500 ML IV ONE ×2 (14:17)
[2022-10-03] MEDS ORDERED: PROPOFOL 10 MG/ML 20 ML VIAL IV ONE (14:20)
[2022-10-03] MEDS ORDERED: LIDOCAINE 2% INJ 20 MG/ML (2 ML VIAL) ONE (14:20)
--- NOTE | 2022-10-03 14:27 | P.PCN ---
Date of Procedure: 10/03/22 Procedure(s) Performed: BRIEF HISTORY: Patient is a 82-year-old, pleasant, white male admitted hospital with symptomatic anemia and hemoglobin of 7.5 g/dL requiring PRBC transfusion. Having intermittent dark stools for the last 2 weeks. His been on aspirin and brilinta for recent CVA 2 months ago.. His last colonoscopy was in May 2021 that was unremarkable. He did have a small bowel capsule endoscopy in August 2070 that revealed small angiectasia in the jejunum. PROCEDURE PERFORMED: Esophagogastroduodenoscopy. PREOPERATIVE DIAGNOSIS: Symptomatic Anemia and dark stool. IV sedation per anesthesia. PROCEDURE: After informed consent was obtained, the patient was brought into the endoscopy unit. IV sedation was administered by Anesthesia under continuous monitoring. Initially the Olympus GIF-140 video endoscope was inserted into the mouth. Esophagus intubated without any difficulty. It was gradually advanced into the stomach and duodenum and carefully examined. The bulb and the second part of the duodenum appeared normal. The scope at this time was withdrawn to the stomach, adequately insufflated with air, and upon careful examination, mucosa of the antrum, body, cardia and the fundus appeared normal. The scope was then withdrawn into the esophagus. The GE junction was located at 39 cm from the incisors. The esophagus appeared normal. There were no erosions or ulcerations seen and the patient tolerated the procedure well. IMPRESSION: 1. Normal-appearing esophagus, stomach and duodenum with no evidence of esophagitis or peptic ulcer disease. RECOMMENDATIONS: The findings of this examination were discussed with the patient . Since no source of bleeding identified, he'll be scheduled for a small bowel capsule endoscopy today..
[2022-10-03] MEDS ORDERED: ACETAMINOPHEN IV (For NPO) 1,000 MG/100 ML VIAL IVPB ONE (14:59)
[2022-10-03] MEDS ORDERED: ACETAMINOPHEN TAB 325 MG TAB PO PRN (16:16)
--- NOTE | 2022-10-03 16:23 | P.CONS ---
History of Present Illness - Reason for Consult Consult date: 10/03/22 Symptomatic anemia Requesting physician: Mauricio Mckeon - Chief Complaint Weakness - History of Present Illness Mr Euceda a pleasant male pt of Dr. Blair, who has been seeing him for microcytic anemia since 11/19. Patient reports he has been anemic off and on for many years. He states previously this was generally mild and he would respond to short courses of oral iron, 2-3 months at a time, as well as changes in diet. This became more prominent and persistent around early 2020. He had hospital admissions in 08/21, 03/21, and then again in 10/20. He states that he required blood transfusion during his admission in 03/21. He has been on oral iron, 27 mg elemental, twice a day since early 2020. During admission in 10/20, hemoglobin was 6.3 on 10/06/21, MCV was 64. He had improvement in the 7 range at the time of discharge. Had an EGD during that admission showing a hiatal hernia, no obvious ulcers. Pathology from esophageal biopsy showed benign squamous mucosa. The patient states that he had been told that he had a healing ulcer on EGD during one of his prior to admissions. He had a colonoscopy in 03/21 which according to him, was negative. Pt reported capsule endoscopy 2019, was nonconclusive according to him. Labs 04/20 had shown hemoglobin of 12.1, with slow decline to 10.4 in 06/20. Iron studies in 10/20 had shown ferritin of 5.4, and saturation less than 10%. He has never had obvious bleeding. Cardiac stent placed in 2012 and was subsequently on antiplatelet therapy. This was discontinued after his initial admission in 08/21. He has had additional workup to rule out other causes of iron deficiency, specifically chronic hemolysis including PNH. These were negative. Labs for B12 deficiency were negative. CT AP was negative for any specific pathology. 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 He received IV iron twice last year, last dose in May 2022. He is currently admitted for weakness, dizziness, muscles her easily, in general "feeling crappy". He states that he had a stroke a few months ago and has been on anticoagulation, he denies any bleeding. He has not had a follow-up since his IV iron infusion in May. He denies fevers, appetite is decent, he remains fairly active. Lab results on admit showed microcytic, hypochromic anemia,Hemoglobin 7.6, he received 1 unit of blood. He reports that he is feeling better and stronger after the unit of blood. CMP normal than a slightly elevated blood glucose, flu and Covid negative. Review of Systems 10 point review of systems is negative except as stated in HPI Past Medical History Past Medical History: CVA/TIA, Eye Disorder, GERD/Reflux, Hyperlipidemia, Thyroid Disorder Additional Past Medical History / Comment(s): "Prediabetes, watching diet, no medications." Bilateral cataracts. COVID- 2022 History of Any Multi-Drug Resistant Organisms: None Reported Past Surgical History: Cholecystectomy, Heart Catheterization With Stent Additional Past Surgical History / Comment(s): EGD/Colonoscopy. small capsule s wallow study Past Anesthesia/Blood Transfusion Reactions: No Reported Reaction Date of Last Stent Placement:: 2012 Past Psychological History: No Psychological Hx Reported Smoking Status: Never smoker Past Alcohol Use History: None Reported Past Drug Use History: None Reported - Past Family History Brother(s) Family Medical History: Cancer Medications and Allergies Home Medications Medication Instructions Recorded Confirmed Type Ferrous Sulfate [Iron (65 MG 325 mg PO W/LUNCH 04/14/21 10/02/22 History Elemental)] Cholecalciferol [Vitamin D3 (25 25 mcg PO W/LUNCH 10/07/21 10/02/22 History Mcg = 1000 Iu)] Cyanocobalamin [Vitamin B-12] 500 mcg PO W/LUNCH 10/07/21 10/02/22 History Levothyroxine Sodium [Synthroid] 300 mcg PO DAILY 10/07/21 10/02/22 History Acetaminophen Tab [Tylenol] 325 mg PO Q6H PRN 07/26/22 10/02/22 History Aspirin 81 mg PO DAILY #30 tab 07/29/22 10/02/22 Rx Pantoprazole Sodium [Protonix] 40 mg PO DAILY #30 tab 07/29/22 10/02/22 Rx Ticagrelor [Brilinta] 90 mg PO BID #60 tab 08/07/22 10/02/22 Rx Ezetimibe [Zetia] 10 mg PO HS 10/02/22 10/02/22 History Folic Acid 1 mg PO W/LUNCH 10/02/22 10/02/22 History Nitroglycerin Sl Tabs [Nitrostat] 0.4 mg SUBLINGUAL Q5M PRN 10/02/22 10/02/22 Hi story Pyridoxine [Vitamin B-6] 50 mg PO W/LUNCH 10/02/22 10/02/22 History methylPREDNISolone Dose Pack See Taper PO DIRECTED 10/02/22 10/02/22 History [Medrol Dose Pack] Allergies Allergy/AdvReac Type Severity Reaction Status Date / Time Oylcita-QVR-KfC Reductase Allergy Rash/Hives/Throat Verified 10/02/22 21:45 Inhibitor Swelling/Swelling Physical Exam Vitals: Vital Signs Temp Pulse Pulse Resp BP Pulse Ox 10/03/22 10:00 90 17 103/64 98 10/03/22 09:00 94 22 128/65 98 10/03/22 08:15 90 18 108/63 96 10/03/22 08:00 94 14 124/74 97 10/03/22 07:00 95 77 H 118/61 97 10/03/22 06:36 98.4 F 96 16 118/68 10/03/22 06:00 89 17 96 10/03/22 05:00 98.2 F 83 16 119/66 97 10/03/22 04:00 98.6 F 91 16 114/68 96 10/03/22 03:28 97.9 F 79 16 128/60 10/03/22 03:08 98.3 F 92 16 120/68 10/03/22 03:00 98.1 F 96 16 122/69 97 10/03/22 02:56 98.3 F 97 16 122/69 10/02/22 23:44 92 18 136/62 99 10/02/22 21:54 80 10/02/22 19:49 98.4 F 107 H 20 114/69 100 Intake and Output 10/02/22 10/03/22 10/03/22 22:59 06:59 14:59 Intake Total 310 Balance 310 Intake: Blood Product 310 Rc As-1 Unit 310 [id number] Other: Weight 109.769 kg - Constitutional General appearance: cooperative, no acute distress, obese - EENT Eyes: anicteric sclerae, EOMI ENT: hearing grossly normal, normal oropharynx - Neck Neck: no lymphadenopathy - Respiratory Respiratory: bilateral: CTA - Cardiovascular Rhythm: regular Heart sounds: normal: S1, S2 Abnormal Heart Sounds: no systolic murmur, no diastolic murmur, no rub, no S3 Gallop, no S4 Gallop, no click, no other leg Peripheral Edema: bilateral: None - Gastrointestinal General gastrointestinal: no absent bowel sounds, no decreased bowel sounds, no distended, no hepatomegaly, no hyperactive bowel sounds, normal bowel sounds, no organomegaly, no rigid, no scaphoid, soft, no splenomegaly, no tenderness, no umbilical hernia, no ventral hernia - Integumentary Integumentary: pale - Neurologic Neurologic: CNII-XII intact - Musculoskeletal Musculoskeletal: strength equal bilaterally - Psychiatric Psychiatric: A&O x's 3, appropriate affect, intact judgment & insight Results CBC & Chem 7: 10/02/22 20:20 10/02/22 20:20 Labs: Abnormal Lab Results - Last 24 Hours (Table) 10/02/22 10/02/22 10/02/22 Range/Units 20:20 20:20 20:20 RBC 3.47 L (4.30-5.90) m/uL Hgb 7.6 L D (13.0-17.5) gm/dL Hct 26.7 L (39.0-53.0) % MCV 77.2 L D (80.0-100.0) fL MCH 22.0 L (25.0-35.0) pg MCHC 28.5 L (31.0-37.0) g/dL RDW 16.3 H (11.5-15.5) % Lymphocytes # (Manual) 0.88 L (1.0-4.8) k/uL APTT 21.7 L (22.0-30.0) sec Glucose 132 H (74-99) mg/dL Crossmatch 10/03/22 Range/Units 01:12 RBC (4.30-5.90) m/uL Hgb (13.0-17.5) gm/dL Hct (39.0-53.0) % MCV (80.0-100.0) fL MCH (25.0-35.0) pg MCHC (31.0-37.0) g/dL RDW (11.5-15.5) % Lymphocytes # (Manual) (1.0-4.8) k/uL APTT (22.0-30.0) sec Glucose (74-99) mg/dL Crossmatch See Detail Assessment and Plan (1) Symptomatic anemia Current Visit: Yes Status: Acute Priority: High Code(s): D64.9 - ANEMIA, UNSPECIFIED SNOMED Code(s): 403164948 (2) Microcytic anemia Current Visit: Yes Status: Chronic Priority: High Code(s): D50.9 - IRON DEFICIENCY ANEMIA, UNSPECIFIED SNOMED Code(s): 206429053 Plan: Microcytic, hypochromic anemia -History of the same. Following with Hematology since 2021 -Extensive workup in the past. No other Etiology found. [place] to be from chronic blood losses secondary to gastrointestinal AVMs -Iron studies ordered -Patient reporting a new stroke a few months ago, he is on Dual antiplatelet therapy. Will consult Neurology to see if patient could reasonably be on single agent antiplatelet therapy. -We will encourage patient that he needs to be seen more frequently by Hematology so that he can receive aggressive parenteral iron supplementation. -GI consulted for endoscopy -Patient has not received parenteral iron since May 2022, he has not been seen in the office since January 2022. We will make sure he has a follow-up. attests: I have seen and examined patient, performed H&P, developed impression and plan of care. Discussed with dictator. Agree with documentation, dictated as a scribe
[2022-10-03 23:13] LABS: % Iron Saturation 36.72 (15.00-50.00); Ferritin 8.9 ng/mL (22.0-322.0)
[2022-10-04] MEDS: LEVOTHYROXINE 100 MCG TAB PO SCH (06:16)
[2022-10-04] MEDS: PANTOPRAZOLE 40 MG TABLET PO SCH (08:11)
[2022-10-04] MEDS: SODIUM FERRIC GLUCONAT-SUCROSE 125 MG in SODIUM CHLORIDE 0.9% 100 ML IVPB SCH (10:02)
[2022-10-04 11:02] LABS: HCT 26.8 % (39.6-50.0); HGB 7.4 g/dL (13.0-17.0); MCH 21.3 pg (27.0-32.0); MCHC 27.6 g/dL (32.0-37.0); Mean Platelet Volume 11.8 fL (9.5-12.2); NRBC Per 100 WBC 0 /100 WBCS (0.0-0.0); Platelet Count 286 X 10*3/uL (140-440); RBC 3.48 X 10*6/uL (4.40-5.60)
[2022-10-04 11:27] LABS: African American GFR (CKD) 92.5 (60.0-200.0); Anion Gap 10.2 mmol/L (10.00-18.00); BUN/Creat Ratio 19.33 Ratio (12.00-20.00); Blood Urea Nitrogen 17.4 mg/dL (9.0-27.0); Calcium 8.8 mg/dL (8.7-10.3); Carbon Dioxide 25.8 mmol/L (20.0-27.5); Non-African American GFR(CKD) 79.8 (60.0-200.0); Potassium 4.1 mmol/L (3.5-5.5)
[2022-10-04 12:27] LABS: Reticulocyte % 2.9 % (0.5-2.0)
--- NOTE | 2022-10-04 14:18 | P.PN ---
Subjective Progress Note Date: 10/04/22 Principal diagnosis: GI bleed This a pleasant 82-year-old male with long-standing history of anemia, coronary artery disease with cardiac stent,, hyperlipidemia, hypothyroidism, GERD, and TIA on Brilinta who presented to the emergency department last night with complaints of shortness of breath with exertion, muscle cramping, and increased fatigue. This workup CBC was obtained and patient was found to be anemic with a hemoglobin of 7.6. Patient has had multiple workups in the past for this symptomatic anemia, positive stool for occult blood with his last EGD with Dr. Gloria lópez on 10/09/2021 with findings of hiatal hernia, esophagitis with no old blood or active blood seen. On 04/17/2021 Dr. Ambrosio did an EGD for anemia with findings of a duodenal ulcer without any active bleeding and gastritis. Again for symptomatic anemia, melena patient had an EGD and colonoscopy on 08/16/[address] Morgan. EGD findings included antral ulcer without bleeding, antral gastritis and colonoscopy with findings of ascending colon polyp status post polypectomy and sigmoid diverticulosis. patient also underwent a small bowel capsule endoscopy to 1820 however report not available at this time. Patient denies any blood in his stool states it is dark and has been dark in the same since he was started on oral iron. Patient did have 2 recent TIAs and was started on Brilinta. He denies any abdominal pain, nausea, or vomiting. Currently denies any shortness of breath or chest pain at rest. Patient currently receiving 1 unit of blood Labs WBC 8.8 hemoglobin 7.6 hematocrit 26 platelet count 301,000 INR 0.9 sodium 138 potassium 4.2 BUN 20 creatinine 0.79 total bilirubin 0.4 AST 21 ALT 24 alkaline phosphatase 122 10/04/2022: Patient seen and examined today as a follow-up. Yesterday he underwent EGD without any evidence of peptic ulcer disease, no old blood or a ctive bleeding noted. He then underwent a small bowel video capsule endoscopy that did reveal 1 approximately 5 mm AVM in the jejunum with no active bleeding. Hemoglobin stable at 7.4. Patient received IV iron. Denies any abdominal pain, nausea vomiting. Normal all movement without any blood noted. Objective - Vital Signs Vital signs: Vital Signs Temp 98.8 F 10/04/22 07:10 Pulse 80 10/04/22 07:10 Resp 20 10/04/22 07:10 BP 114/67 10/04/22 07:10 Pulse Ox 97 10/04/22 02:00 FiO2 Intake & Output 10/03/22 10/04/22 10/04/22 18:59 06:59 18:59 Intake Total 900 118 Output Total 200 Balance 700 118 Weight 109.769 kg Intake: IV 450 Oral 450 118 Output: Urine 200 Other: # Voids 2 - Exam General appearance: The patient is alert, oriented, appears in no acute distress. HET: Head is normocephalic and atraumatic. Conjunctiva pink. Sclera anicteric. Neck: Supple without lymphadenopathy. Abdomen: Soft, nontender, nondistended with bowel sounds. No guarding or rigidity. Extremities: Normal skin color and turgor. No pedal edema Skin: No rashes, no jaundice Neurological: No focal deficits. Alert and oriented. - Labs CBC & Chem 7: 10/04/22 05:32 10/04/22 05:32 Labs: Abnormal Lab Results - Last 24 Hours (Table) 10/03/22 10/03/22 10/03/22 Range/Units 12:27 12:27 12:27 RBC (4.40-5.60) X 10*6/uL Hgb (13.0-17.0) g/dL Hct (39.6-50.0) % MCV (80.0-97.0) fL MCH (27.0-32.0) pg MCHC (32.0-37.0) g/dL RDW (11.5-14.5) % Glucose (70-110) mg/dL Ferritin 8.9 L (22.0-322.0) ng/mL Folate 33.30 H (4.40-31.00) ng/mL TSH 0.100 L (0.350-5.500) uIU/mL Free (T4) Reflex I 1.820 H (0.800-1.800) ng/dL 10/04/22 10/04/22 Range/Units 05:32 05:32 RBC 3.48 L (4.40-5.60) X 10*6/uL Hgb 7.4 L (13.0-17.0) g/dL Hct 26.8 L (39.6-50.0) % MCV 77.0 L (80.0-97.0) fL MCH 21.3 L (27.0-32.0) pg MCHC 27.6 L (32.0-37.0) g/dL RDW 18.0 H (11.5-14.5) % Glucose 113 H (70-110) mg/dL Ferritin (22.0-322.0) ng/mL Folate (4.40-31.00) ng/mL TSH (0.350-5.500) uIU/mL Free (T4) Reflex I (0.800-1.800) ng/dL Assessment and Plan (1) Symptomatic anemia Narrative/Plan: 2-year-old male with multiple comorbidities including 2 recent TIAs who was started on purulent, presented to the emergency department with shortness of breath and fatigue who was noted to have symptomatic microcytic anemia. Patient has had chronic anemia in the past, with reports of melena and has undergone multiple endoscopic evaluations without any findings of bleeding. Patient was started on iron supplements when started on his [place] time and states his stools have been dark but they are not black and there is no blood. He denies any abdominal pain, nausea, or vomiting. He has had findings of antral ulcer in the past without any active bleeding, need to consider this as a possible etiology for microcytic anemia. Due to patient being on antiplatelet therapy and need for that regarding recent TIAs would recommend proceeding with upper endoscopy. Anemia workup ordered as well. EGD completed yesterday without any findings of ulcer, no active bleeding or old blood noted. Proceeded with small bowel U capsule endoscopy with one noted nonbleeding AVM in the jejunum. Continue with IV iron, recommendations from hematology. Current Visit: Yes Status: Acute Priority: High Code(s): D64.9 - ANEMIA, UNSPECIFIED SNOMED Code(s): 183824891 (2) Microcytic anemia Current Visit: Yes Status: Chronic Priority: High Code(s): D50.9 - IRON DEFICIENCY ANEMIA, UNSPECIFIED SNOMED Code(s): 464274573 (3) History of TIA (transient ischemic attack) Current Visit: Yes Status: Acute Code(s): Z86.73 - PRSNL HX OF TIA (TIA), AND CEREB INFRC W/O RESID DEFICITS SNOMED Code(s): 179833352 (4) History of coronary artery disease Current Visit: No Status: Acute Code(s): Z86.79 - PERSONAL HISTORY OF OTHER DISEASES OF THE CIRCULATORY SYSTEM SNOMED Code(s): 229650147 Plan: 1. Continue symptomatic and supportive care 2. Daily CBCs, transfuse for hemoglobin less than 7 3. Anemia workup ordered 4. May resume Brilinta 5. Regular diet 6. EGD completed, no acute findings and no old blood or active bleeding noted. Small bowel video capsule endoscopy with one noted a small bleeding AVM in the jejunum. 7. Continue with recommendations from hematology 8. Protonix 40 mg daily for GI prophylaxis 9. No further workup indicated at this time Thank you for this consultation, the patient is cleared from gastroenterology for discharge. Dr. Salome Morgan I agree with the dictator's note, documented as a scribe by Flori Pagan.
--- NOTE | 2022-10-04 16:33 | P.CNNES ---
History of Present Illness Consult date: 10/04/22 Requesting physician: Carol Reyes Reason for Consult: Pt Hx AVMs, on dual antiplt Tx for recent stroke. Could pt be on 1 agent? History of Present Illness: Patient is a 82-year-old male with history of recent acute left pontine infarct on 07/26/2022, B12, folate deficiency, hyperlipidemia, came to the hospital on 0 10/02/2022 at 7:14 PM for GI bleed. Patient had right hemiparesis, which has overtime much improved. He still feels mild residual deficits on the right side. Patient came to the hospital because he feels his whole body was weak. He was short of breath, and had a slight headache. He does have very mild weakness of the right leg from previous stroke, but does not feel is any worse. It is just generalized weakness. Denies any slurred speech, facial droop or visual disturbance. Patient says that he frequently loses blood. Apparently workup has showed AVM in the GI. Patient was on dual antiplatelet medication including Brilinta 90 mg twice a day and aspirin 81 mg. GI has consulted to co nsider switching to a single agent. Vital signs arrival blood pressure 114/69, pulse rate 107, temperature 98.4. Blood test shows normal WBC hemoglobin 7.6, platelets 301, INR is normal, Chem- 20 is normal. Troponin negative, B12 3:30, folate 33.3, TSH is decreased 0.100 and free T4 is elevated 1.82. Influenza, RSV and coronal virus PCR negative. EKG shows sinus tachycardia Patient currently at home on Brilinta 90 mg twice a day, aspirin 81 mg, B12, iron, levothyroxine, Protonix 40 mg daily, nitroglycerin, Zetia 10 AM, B6 and folic acid. MRI brain from 07/28/2022 and 08/04/2022 revealed acute infarct involving the inferior ventral aspect of the left paulie. CTA head and neck 08/03/2022 revealed no significant diameter reduction to account for patient's symptoms. CTA of head also normal. Prior to initial stroke, patient was not taking any antiplatelet medication. Patient is ALLERGIC to statins. 2-D echo previous admission revealed severely increased left ventricular wall thickness. Left-ventricular EF is 50-55%. Hemoglobin A1c 6.2. Lipid panel with cholesterol 167, LDL 100, HDL 36 and triglycerides 151. Patient is ALLERGIC to statins. Review of Systems All pertinent positive and negative mentioned in the HPI. All others are noncontributory to the present illness. Past Medical History Past Medical History: CVA/TIA, Eye Disorder, GERD/Reflux, Hyperlipidemia, Thyroid Disorder Additional Past Medical History / Comment(s): "Prediabetes, watching diet, no medications." Bilateral cataracts. COVID- 2022 History of Any Multi-Drug Resistant Organisms: None Reported Past Surgical History: Cholecystectomy, Heart Catheterization With Stent Additional Past Surgical History / Comment(s): EGD/Colonoscopy. small capsule swallow study Past Anesthesia/Blood Transfusion Reactions: No Reported Reaction Date of Last Stent Placement:: 2012 Past Psychological History: No Psychological Hx Reported Smoking Status: Never smoker Past Alcohol Use History: None Reported Past Drug Use History: None Reported - Past Family History Brother(s) Family Medical History: Cancer Medications and Allergies Home Medications Medication Instructions Recorded Confirmed Type Ferrous Sulfate [Iron (65 MG 325 mg PO W/LUNCH 04/14/21 10/02/22 History Elemental)] Cholecalciferol [Vitamin D3 (25 25 mcg PO W/LUNCH 10/07/21 10/02/22 History Mcg = 1000 Iu)] Cyanocobalamin [Vitamin B-12] 500 mcg PO W/LUNCH 10/07/21 10/02/22 History Levothyroxine Sodium [Synthroid] 300 mcg PO DAILY 10/07/21 10/02/22 History Acetaminophen Tab [Tylenol] 325 mg PO Q6H PRN 07/26/22 10/02/22 History Aspirin 81 mg PO DAILY #30 tab 07/29/22 10/02/22 Rx Pantoprazole Sodium [Protonix] 40 mg PO DAILY #30 tab 07/29/22 10/02/22 Rx Ticagrelor [Brilinta] 90 mg PO BID #60 tab 08/07/22 10/02/22 Rx Ezetimibe [Zetia] 10 mg PO HS 10/02/22 10/02/22 History Folic Acid 1 mg PO W/LUNCH 10/02/22 10/02/22 History Nitroglycerin Sl Tabs [Nitrostat] 0.4 mg SUBLINGUAL Q5M PRN 10/02/22 10/02/22 History Pyridoxine [Vitamin B-6] 50 mg PO W/LUNCH 10/02/22 10/02/22 History methylPREDNISolone Dose Pack See Taper PO DIRECTED 10/02/22 10/02/22 History [Medrol Dose Pack] Allergies Allergy/AdvReac Type Severity Reaction Status Date / Time [id number]-[id number]-KsN Reductase Allergy Rash/Hives/Throat Verified 10/02/22 21:45 Inhibitor Swelling/Swelling Physical Examination - Vital Signs Vital Signs: Vital Signs Temp Pulse Pulse Resp BP BP Pulse Ox 10/04/22 07:10 98.8 F 80 20 114/67 10/04/22 06:19 115/67 10/04/22 03:35 78 10/04/22 02:00 98.2 F 104 H 94/49 97 10/03/22 19:54 96.9 F L 75 17 126/70 99 10/03/22 17:15 82 16 108/62 99 10/03/22 16:30 85 16 105/59 98 10/03/22 16:00 78 16 107/61 98 10/03/22 15:45 69 16 107/60 99 10/03/22 15:30 84 16 110/71 97 10/03/22 15:15 98.4 F 74 16 118/73 98 10/03/22 15:00 87 16 121/67 99 10/03/22 14:45 80 16 130/61 99 10/03/22 14:29 89 16 107/60 96 10/03/22 14:04 88 18 140/78 98 Intake and Output 10/03/22 10/04/22 10/04/22 22:59 06:59 14:59 Intake Total 800 118 Output Total 200 Balance 600 118 Intake: IV 350 Oral 450 118 Output: Urine 200 Other: # Voids 2 Weight 109.769 kg Patient is an elderly male, in no acute distress. Patient is alert awake oriented to time place and person. Speech and language functions are normal. Patient can name and repeat very well. No aphasia or dysarthria. Attention, concentration and fund of knowledge is adequate. On cranial nerve examination, pupils are equal, round and reacting to light, visual cuellar are full on confrontation, with no neglect on double simultaneous stimulation. Extraocular muscles are intact with no nystagmus. Face is symmetric, tongue protrudes to the midline. Palatal elevation and sensation normal, hearing and shoulder shrug normal, facial sensation normal. On muscle strength testing, there is no pronator drift and the strength is normal in arms and legs distally and proximally. Deep tendon reflexes are (right/left) biceps 1+/1+, brachioradialis 1+/1+, knees 2/1+, ankles 1/1 and plantars are upgoing bilaterally Sensory to touch is equal with no neglect on double simultaneous stimulation. Cerebellar function showed no ataxia for [id number] testing. No ataxia for uwic-[id number] testing on either side. Tone and bulk of muscles normal. Gait deferred.. On general examination, there is no carotid bruit or murmur, S1-S2 audible. Chest is clear on consultation. Abdomen is soft nontender. No organomegaly, bowel sounds present. Peripheral pulses are present. No edema. Results - Laboratory Findings CBC and BMP: 10/04/22 05:32 10/04/22 05:32 Abnormal Lab Findings: Abnormal Labs 10/02/22 10/02/22 10/02/22 20:20 20:20 20:20 RBC 3.47 L Hgb 7.6 L D Hct 26.7 L MCV 77.2 L D MCH 22.0 L MCHC 28.5 L RDW 16.3 H Lymphocytes # (Manual) 0.88 L Retic Count APTT 21.7 L Glucose 132 H Ferritin Folate TSH Free (T4) Reflex I Crossmatch 10/03/22 10/03/22 10/03/22 01:12 12:27 12:27 RBC Hgb Hct MCV MCH MCHC RDW Lymphocytes # (Manual) Retic Count APTT Glucose Ferritin 8.9 L Folate 33.30 H TSH Free (T4) Reflex I Crossmatch See Detail 10/03/22 10/04/22 10/04/22 12:27 05:32 05:32 RBC 3.48 L Hgb 7.4 L Hct 26.8 L MCV 77.0 L MCH 21.3 L MCHC 27.6 L RDW 18.0 H Lymphocytes # (Manual) Retic Count APTT Glucose 113 H Ferritin Folate TSH 0.100 L Free (T4) Reflex I 1.820 H Crossmatch 10/04/22 12:06 RBC Hgb Hct MCV MCH MCHC RDW Lymphocytes # (Manual) Retic Count 2.9 H APTT Glucose Ferritin Folate TSH Free (T4) Reflex I Crossmatch Assessment and Plan Assessment: * Recent history of acute left pontine infarct 07/26/2022. Patient has recovered well. * Recurrent GI bleed due to AVM. * History of B12 deficiency * Folate deficiency * Low normal vitamin B6 * Hyperlipidemia Plan: * From neurology standpoint patient is stable. No new deficits. * Patient's acute stroke was on 07/26/2022. He has been on DAP for 3 months. At this time, it is perfectly fine to stop one antiplatelet agent, and maintain on single agent. As patient was not on any antiplatelet medication prior to his acute stroke, therefore we will discontinue Brilinta and continue aspirin 81 mg daily indefinitely. * Continue B12, folate and B6 replacement. * Neurologically clear for discharge. * Thank you for the consult.
[2022-10-04] MEDS: CYANOCOBALAMIN 500 MCG TAB PO SCH (17:26)
[2022-10-04] MEDS: PYRIDOXINE 50 MG TAB PO SCH (17:27)
[2022-10-04] MEDS: FOLIC ACID 1 MG TAB PO SCH (17:27)
[2022-10-04] MEDS ORDERED: TICAGRELOR 90 MG TAB PO SCH (21:00)
--- NOTE | 2022-10-04 21:21 | P.PN ---
Subjective Progress Note Date: 10/04/22 Principal diagnosis: anemia Pt sitting in chair, he feels good today, ambulating without significant SOB, he is tolerating IV iron, Hgb stable, pt denies any visible bleeding. Objective - Vital Signs Vital signs: Vital Signs Temp 98.0 F 10/04/22 15:18 Pulse 79 10/04/22 15:18 Resp 17 10/04/22 15:18 BP 123/70 10/04/22 15:18 Pulse Ox 97 10/04/22 15:18 FiO2 Intake & Output 10/03/22 10/04/22 10/04/22 18:59 06:59 18:59 Intake Total 900 118 Output Total 200 Balance 700 118 Weight 109.769 kg Intake: IV 450 Oral 450 118 Output: Urine 200 Other: # Voids 2 - Constitutional General appearance: Present: cooperative, no acute distress, obese - EENT Eyes: Present: anicteric sclerae, EOMI ENT: Present: hearing grossly normal - Respiratory Respiratory: bilateral: CTA - Cardiovascular Rhythm: regular Heart sounds: normal: S1, S2 Abnormal Heart Sounds: Absent: systolic murmur, diastolic murmur, rub, S3 Gallop, S4 Gallop, click, other - Peripheral edema leg Peripheral Edema: bilateral: None - Gastrointestinal General gastrointestinal: Present: normal bowel sounds, soft - Integumentary Integumentary: Present: normal - Neurologic Neurologic: Present: CNII-XII intact - Musculoskeletal Musculoskeletal: Present: strength equal bilaterally - Psychiatric Psychiatric: Present: A&O x's 3, appropriate affect, intact judgment & insight - Labs CBC & Chem 7: 10/04/22 05:32 10/04/22 05:32 Labs: Abnormal Lab Results - Last 24 Hours (Table) 10/03/22 10/03/22 10/03/22 Range/Units 12:27 12:27 12:27 RBC (4.40-5.60) X 10*6/uL Hgb (13.0-17.0) g/dL Hct (39.6-50.0) % MCV (80.0-97.0) fL MCH (27.0-32.0) pg MCHC (32.0-37.0) g/dL RDW (11.5-14.5) % Retic Count (0.5-2.0) % Glucose (70-110) mg/dL Ferritin 8.9 L (22.0-322.0) ng/mL Folate 33.30 H (4.40-31.00) ng/mL TSH 0.100 L (0.350-5.500) uIU/mL Free (T4) Reflex I 1.820 H (0.800-1.800) ng/dL 10/04/22 10/04/22 10/04/22 Range/Units 05:32 05:32 12:06 RBC 3.48 L (4.40-5.60) X 10*6/uL Hgb 7.4 L (13.0-17.0) g/dL Hct 26.8 L (39.6-50.0) % MCV 77.0 L (80.0-97.0) fL MCH 21.3 L (27.0-32.0) pg MCHC 27.6 L (32.0-37.0) g/dL RDW 18.0 H (11.5-14.5) % Retic Count 2.9 H (0.5-2.0) % Glucose 113 H (70-110) mg/dL Ferritin (22.0-322.0) ng/mL Folate (4.40-31.00) ng/mL TSH (0.350-5.500) uIU/mL Free (T4) Reflex I (0.800-1.800) ng/dL - Imaging and Cardiology procedure note reviewed Assessment and Plan (1) Symptomatic anemia Current Visit: Yes Status: Acute Priority: High Code(s): D64.9 - ANEMIA, UNSPECIFIED SNOMED Code(s): 212861872 (2) Microcytic anemia Current Visit: Yes Status: Chronic Priority: High Code(s): D50.9 - IRON DEFICIENCY ANEMIA, UNSPECIFIED SNOMED Code(s): 545741506 Plan: Microcytic, hypochromic anemia -History of the same. Following with Hematology since 2021 -Extensive workup in the past. 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 Neurology consult, appreciate their review of the case and recommendations. Ok for pt to cont on single agent anti-platelet therapy as he has been on dual therapy for 3 mo. Pt will cont asa per Neuro. -Pt encouraged to follow with Hematology so that he can receive aggressive parenteral iron supplementation. He verbalized understanding -GI procedure notes reviewed, no evidence of bleeding. Capsule endo planned. -F/U 2 weeks in ofc for CBC. F/U [address] Obrien for repeat iron studies.
[2022-10-05] MEDS: LEVOTHYROXINE 100 MCG TAB PO SCH (06:32)
[2022-10-05 07:18] LABS: Anisocytosis Slight; HCT 28.1 % (39.0-53.0); HGB 8.1 gm/dL (13.0-17.5); Hypochromasia Marked; MCH 22.3 pg (25.0-35.0); MCHC 28.9 g/dL (31.0-37.0); Mean Platelet Volume 10.2; Microcytosis Slight; Platelet Count 295 k/uL (150-450); Poikilocytosis Marked; RBC 3.65 m/uL (4.30-5.90); RDW 17.4 % (11.5-15.5)
[2022-10-05] MEDS: CYANOCOBALAMIN 500 MCG TAB PO SCH (07:47)
[2022-10-05] MEDS: FOLIC ACID 1 MG TAB PO SCH (07:47)
[2022-10-05] MEDS: PANTOPRAZOLE 40 MG TABLET PO SCH (07:48)
[2022-10-05] MEDS: PYRIDOXINE 50 MG TAB PO SCH (08:21)
[2022-10-05] MEDS: SODIUM FERRIC GLUCONAT-SUCROSE 125 MG in SODIUM CHLORIDE 0.9% 100 ML IVPB SCH (08:44)
[2022-10-05] MEDS ORDERED: ASPIRIN 81 MG PO SCH (09:00)
[2022-10-05 09:13] VITALS: RESP 18
[2022-10-05 09:24] VITALS: BP 113/66; PULSE 88; TEMP 97.7
[2022-10-06] MEDS ORDERED: LEVOTHYROXINE 100 MCG TAB PO SCH (06:30)
--- NOTE | 2022-10-06 08:14 | DS ---
DISCHARGE SUMMARY CHIEF COMPLAINT: Symptomatic anemia. HISTORY OF PRESENT ILLNESS AND PHYSICAL EXAMINATION: Details of this man's history and physical can be found in the initial workup. LABORATORY STUDIES: While he was in the hospital, he had laboratory studies, details of which can be found in the laboratory section of his chart. COURSE IN THE HOSPITAL: After admission, he was placed on bedrest and started on intravenous fluids and transfused. He was seen by Gastroenterology and taken for an upper GI endoscopy, which failed to demonstrate any pathology or lesions or any bleeding sites. He was seen by Hematology. He received an iron infusion. Hemoglobin was up and he was asymptomatic. It was felt that he could be discharged and will be followed up in the office. FINAL DIAGNOSES: 1. Asymptomatic anemia. 2. Hypothyroidism with elevated T4. 3. Recent cerebrovascular accident. OPERATIONS: Upper GI endoscopy. CONSULTATIONS: Hematology and Gastroenterology. He is improved. MMNARGIS / ARMEN: [id number] /
--- NOTE | 2022-10-06 12:17 | HP ---
HISTORY AND PHYSICAL CHIEF COMPLAINT: Weakness. HISTORY OF PRESENT ILLNESS: This is another admission for this 82-year-old white male. He was recently in the hospital with stroke. He has a history of chronic anemia due to iron deficiency. He has also had upper GI bleeding in the past from gastric ulcer disease. He came to the emergency room because of extreme weakness and was found to have a hemoglobin below 7. He denied any chest pain, any new neurologic signs or symptoms, etc. REVIEW OF SYSTEMS: He has had no other symptoms. He has had no nausea, vomiting, hematemesis, melena, hematochezia, abdominal pain, etc. Past medical history, family history, personal and social histories are all otherwise unremarkable and noncontributory or unchanged. PHYSICAL EXAMINATION: VITAL SIGNS: Blood pressure is 118/54 with a pulse of 84, respirations of 36, and he is afebrile. GENERAL: He appeared to be pale and chronically ill. HEAD, EARS, EYES, NOSE, MOUTH, AND THROAT: Normal. Neck veins were not distended. Thyroid was not enlarged. CHEST: Clear. CARDIAC: Normal. ABDOMEN: Slightly protuberant. Abdomen is soft and nontender without visceromegaly or masses. Bowel sounds are present. EXTREMITIES: Normal. NEUROLOGIC: He is intact. IMPRESSION: 1. Anemia. 2. History of gastric ulcer disease. 3. History of GI blood loss. 4. Recent cerebrovascular accident. 5. Hypertension. 6. Hyperlipidemia. 7. History of iron deficiency. PLAN: 1. Bed rest. 2. IV fluids. 3. Frequent monitoring of his hemoglobin and vital signs. 4. Transfuse 1 unit of packed cells. 5. Consult with Gastroenterology. MMODL / IJN: [id number] /
--- NOTE | 2022-10-06 14:26 | PN ---
PROGRESS NOTE DATE OF SERVICE: 10/04/2022 CHIEF COMPLAINT: Symptomatic anemia. HISTORY OF PRESENT ILLNESS: This gentleman is stable and he is going for endoscopy. He is not having any epigastric pain and he has had no melena and no hematochezia. PHYSICAL EXAMINATION: GENERAL: He is awake and alert. He is pale. VITAL SIGNS: Normal. CHEST: Clear. CARDIAC: Normal. ABDOMEN: Protuberant, soft and nontender without any visceromegaly or masses. Bowel sounds present. IMPRESSION: 1. Symptomatic anemia. 2. Rule out gastrointestinal bleed. 3. Rule out gastric peptic ulcer disease. PLAN: He is going for endoscopy today. MMODL / IJN: [id number] /
== END 2022-10-05 11:32 | disposition home or self-care (01) | DRG 378 ==
LOC: EC 19:14 → 4SSUR 10-03 01:47
PROVIDERS: ADMIT Family Medicine; ATTEND Family Medicine
PROC: 30233N1 Transfusion of Nonautologous Red Blood Cells into Peripheral Vein, Percutaneous Approach (ICD-10-PCS; principal; 2022-10-03 08:00)
PROC: 0DJ08ZZ Inspection of Upper Intestinal Tract, Via Natural or Artificial Opening Endoscopic (ICD-10-PCS; principal; 2022-10-03 08:00)
PROC: 0DJD8ZZ Inspection of Lower Intestinal Tract, Via Natural or Artificial Opening Endoscopic (ICD-10-PCS; principal; 2022-10-03 08:00)
DX: K55.21 Angiodysplasia of colon with hemorrhage (principal); I69.351 Hemiplegia and hemiparesis following cerebral infarction affecting right dominant side; E78.5 Hyperlipidemia, unspecified; D50.0 Iron deficiency anemia secondary to blood loss (chronic); E03.9 Hypothyroidism, unspecified; I10 Essential (primary) hypertension; I25.10 Atherosclerotic heart disease of native coronary artery without angina pectoris; K21.9 Gastro-esophageal reflux disease without esophagitis; K44.9 Diaphragmatic hernia without obstruction or gangrene; R73.03 Prediabetes; Z20.822 Contact with and (suspected) exposure to COVID-19; E53.8 Deficiency of other specified B group vitamins; Z95.5 Presence of coronary angioplasty implant and graft; Z88.8 Allergy status to other drugs, medicaments and biological substances; Z87.11 Personal history of peptic ulcer disease; Z79.899 Other long term (current) drug therapy; Z79.890 Hormone replacement therapy; Z79.82 Long term (current) use of aspirin; Z79.02 Long term (current) use of antithrombotics/antiplatelets
CPT/HCPCS: 36415; 36430; 43235; 71046; 80048; 80053; 82525; 82607; 82728; 82746; 83540; 83550; 83605; 83735; 83880; 84439; 84443; 84484; 85025; 85027; 85045; 85610; 85730; 86850; 86900; 86901; 86920; 87636; 91110; 93005; 99285

== ENCOUNTER 2022-11-10 17:06 | Emergency (ER) | payer MEDICARE, OTHER ==
[2022-11-10 17:42] LABS: ALT 13 U/L (4-49); AST 19 U/L (17-59); African American GFR (CKD) >90 (>60 ml/min/1.73 sqM); Albumin 3.6 g/dL (3.5-5.0); Alkaline Phosphatase 112 U/L (38-126); Anion Gap 9 mmol/L; Blood Urea Nitrogen 20 mg/dL (9-20); Calcium 8.6 mg/dL (8.4-10.2); Carbon Dioxide 27 mmol/L (22-30); Chloride 103 mmol/L (98-107); Glucose 104 mg/dL (74-99); Non-African American GFR(CKD) 87 (>60 ml/min/1.73 sqM); Sodium 139 mmol/L (137-145); Total Bilirubin 0.2 mg/dL (0.2-1.3); Total Protein 6.3 g/dL (6.3-8.2)
[2022-11-10] MEDS ORDERED: SODIUM CHLORIDE 0.9% 500 ML 500 ML IV STA (18:04)
--- NOTE | 2022-11-10 18:13 | ED ---
General Adult HPI - General Chief complaint: Recheck/Abnormal Lab/Rx Stated complaint: abn labs - needs transfusion Time Seen by Provider: 11/10/22 18:03 Source: patient, RN notes reviewed Mode of arrival: wheelchair Limitations: no limitations - History of Present Illness Initial comments: 82-year-old male to the emergency department at the request of his doctor after being found have a hemoglobin level of 6.4 yesterday he states this has happened the past he apparently has some type of a slow leak in his small bowel that is they state his untreatable. He occasionally has a common for blood transfusions he denies any chest pain shortness breath fevers chills or sweats at this time. He states at times he'll get short of breath with exertion but he states this is common after developing anemia. He also states he'll occasionally get chest dis comfort with exertion but not at this time. No other current complaints or modifying factors he denies any blood per rectum coughing up any blood. He's not on blood thinners at this time. - Related Data Home Medications Medication Instructions Recorded Confirmed Ferrous Sulfate [Iron (65 MG 325 mg PO W/LUNCH 04/14/21 11/10/22 Elemental)] Cholecalciferol [Vitamin D3 (25 25 mcg PO W/LUNCH 10/07/21 11/10/22 Mcg = 1000 Iu)] Acetaminophen Tab [Tylenol] 325 mg PO Q6H PRN 07/26/22 11/10/22 Ezetimibe [Zetia] 10 mg PO HS 10/02/22 11/10/22 Folic Acid 1 mg PO W/LUNCH 10/02/22 11/10/22 Nitroglycerin Sl Tabs [Nitrostat] 0.4 mg SUBLINGUAL Q5M PRN 10/02/22 11/10/22 Pyridoxine [Vitamin B-6] 50 mg PO W/LUNCH 10/02/22 11/10/22 Cyanocobalamin [Vitamin B-12 1,000 mcg SQ FR 11/10/22 11/10/22 Injection] Levothyroxine Sodium 300 mcg PO DAILY 11/10/22 11/10/22 Previous Rx's Medication Instructions Recorded Aspirin 81 mg PO DAILY #30 tab 07/29/22 Pantoprazole Sodium [Protonix] 40 mg PO BID-W/MEALS #60 tab 10/05/22 Allergies Allergy/AdvReac Type Severity Reaction Status Date / Time [id number] Reductase Allergy Rash/Hives/Throat Verified 11/10/22 19:20 Inhibitor Swelling/Swelling Review of Systems ROS Statement: Those systems with pertinent positive or pertinent negative responses have been documented in the HPI. ROS Other: All systems not noted in ROS Statement are negative. Past Medical History Past Medical History: CVA/TIA, Eye Disorder, GERD/Reflux, Hyperlipidemia, Thyroid Disorder Additional Past Medical History / Comment(s): "Prediabetes, watching diet, no medications." Bilateral cataracts. COVID- 2022 History of Any Multi-Drug Resistant Organisms: None Reported Past Surgical History: Cholecystectomy, Heart Catheterization With Stent Additional Past Surgical History / Comment(s): EGD/Colonoscopy. small capsule swallow study Past Anesthesia/Blood Transfusion Reactions: No Reported Reaction Date of Last Stent Placement:: 2012 Past Psychological History: No Psychological Hx Reported Smoking Status: Never smoker Past Alcohol Use History: None Reported Past Drug Use History: None Reported - Past Family History Brother(s) Family Medical History: Cancer General Exam - General Exam Comments Initial Comments: This is a well-developed well-nourished awake alert oriented 4 male Limitations: no limitations General appearance: alert, in no apparent distress Head exam: Present: atraumatic, normocephalic, normal inspection Eye exam: Present: normal appearance, PERRL, EOMI. Absent: scleral icterus, conjunctival injection, periorbital swelling ENT exam: Present: normal exam, mucous membranes moist Neck exam: Present: normal inspection. Absent: tenderness, meningismus, lymphadenopathy Respiratory exam: Present: normal lung sounds bilaterally. Absent: respiratory distress, wheezes, rales, rhonchi, stridor Cardiovascular Exam: Present: regular rate, normal rhythm, normal heart sounds. Absent: systolic murmur, diastolic murmur, rubs, gallop, clicks GI/Abdominal exam: Present: soft, normal bowel sounds. Absent: distended, t enderness, guarding, rebound, rigid Extremities exam: Present: normal inspection, full ROM, normal capillary refill. Absent: tenderness, pedal edema, joint swelling, calf tenderness Back exam: Present: normal inspection Neurological exam: Present: alert, oriented X3, CN II-XII intact Psychiatric exam: Present: normal affect, normal mood Skin exam: Present: warm, dry, intact, pallor. Absent: rash Course Vital Signs 11/10/22 11/10/22 11/10/22 17:08 18:50 20:48 Temperature 98.7 F 98.0 F Pulse Rate 109 H 89 95 Respiratory 18 18 16 Rate Blood Pressure 120/65 108/73 101/51 O2 Sat by Pulse 94 L 99 98 Oximetry 11/10/22 21:00 Temperature 98.0 F Pulse Rate 93 Respiratory 18 Rate Blood Pressure 110/62 O2 Sat by Pulse 97 Oximetry Medical Decision Making - Medical Decision Making The patient was found have a hemoglobin level .2 down from 6.4 and yesterday's labs he does demonstrate some symptoms of weakness exertional shortness of breath. He will receive 2 units of IV packed red blood cells and then be discharged home. He is in agreement with this as well as his .Was pt. sent in by a medical professional or institution (, PA, FLOOR MANAGER, urgent care, hospital, or skilled nursing...) When possible be specific @ -No Did you speak to anyone other than the patient for history (EMS, parent, family, police, friend...)? What history was obtained from this source @ -Patient's Did you review nursing and triage notes (agree or disagree)? Why? @ -I reviewed and agree with nursing and triage notes Were old charts reviewed (outside hosp., previous admission, EMS record, old EKG, old radiological studies, urgent care reports/EKG's, skilled nursing records)? Report findings @ - old charts were reviewed Differential Diagnosis (chest pain, altered mental status, abdominal pain women, abdominal pain men, vaginal bleeding, weakness, fever, dyspnea, syncope, headache, dizziness, GI bleed, back pain, seizure, CVA, palpatations, mental health, musculoskeletal)? @ -Anemia EKG interpreted by me (3pts min.). @ -Not done X-rays interpreted by me (1pt min.). @ -None done CT interpreted by me (1pt min.). @ -None done U/S interpreted by me (1pt. min.). @ -None done What testing was considered but not performed or refused? (CT, X-rays, U/S, labs)? Why? @ -None What meds were considered but not given or refused? Why? @ -None Did you discuss the management of the patient with other professionals (professionals i.e. , PA, FLOOR MANAGER, lab, RT, psych nurse, social work case manager, occupational therapy aides teacher, teacher, protocol officer, case coordinator)? Give summary @ -No Was smoking cessation discussed for >3mins.? @ -No Was critical care preformed (if so, how long)? @ -No Were there social determinants of health that impacted care today? How? (Homelessness, low income, unemployed, alcoholism, drug addiction, transportation, low edu. Level, literacy, decrease access to med. care, halfway, rehab)? @ -No Was there de-escalation of care discussed even if they declined (Discuss DNR or withdrawal of care, Hospice)? DNR status @ -No What co-morbidities impacted this encounter? (DM, HTN, Smoking, COPD, CAD, Cancer, CVA, ARF, Chemo, Hep., AIDS, mental health diagnosis, sleep apnea, morbid obesity)? @ -Anemia Was patient admitted / discharged? Hospital course, mention meds given and route, prescriptions, significant lab abnormalities, going to OR and other pertinent info. @ -Patient was discharged home with follow-up with his doctor Undiagnosed new problem with uncertain prognosis? @ -No Drug Therapy requiring intensive monitoring for toxicity (Heparin, Nitro, Insulin, Cardizem)? @ -No Were any procedures done? @ -No Diagnosis/symptom? @ -Anemia Acute, or Chronic, or Acute on Chronic? @ -Acute on chronic Uncomplicated (without systemic symptoms) or Complicated (systemic symptoms)? @ -default Side effects of treatment? @ -No Exacerbation, Progression, or Severe Exacerbation? @ -No Poses a threat to life or bodily function? How? (Chest pain, [place], [place], pneumonia, PE, COPD, DKA, ARF, appy, cholecystitis, CVA, Diverticulitis, Homicidal, Nikki cidal, threat to staff... and all critical care pts) @ -Dyspnea - Lab Data Result diagrams: 11/10/22 18:40 11/10/22 17:14 Lab Results 11/10/22 11/10/22 11/10/22 Range/Units 17:14 18:40 19:04 WBC 6.7 (3.8-10.6) k/uL RBC 3.48 L (4.30-5.90) m/uL Hgb 6.2 L* D (13.0-17.5) gm/dL Hct 23.5 L (39.0-53.0) % MCV 67.6 L D (80.0-100.0) fL MCH 17.8 L (25.0-35.0) pg MCHC 26.3 L (31.0-37.0) g/dL RDW 17.2 H (11.5-15.5) % Plt Count 279 (150-450) k/uL MPV 8.4 Neutrophils % (Manual) 80 % Lymphocytes % (Manual) 14 % Monocytes % (Manual) 2 % Eosinophils % (Manual) 4 % Neutrophils # (Manual) 5.36 (1.3-7.7) k/uL Lymphocytes # (Manual) 0.94 L (1.0-4.8) k/uL Monocytes # (Manual) 0.13 (0-1.0) k/uL Eosinophils # (Manual) 0.27 (0-0.7) k/uL Nucleated RBCs 0 (0-0) /100 WBC Manual Slide Review Performed Hypochromasia Marked Poikilocytosis Moderate Anisocytosis Slight Microcytosis Marked Sodium 139 (137-145) mmol/L Potassium 4.0 (3.5-5.1) mmol/L Chloride 103 (98-107) mmol/L Carbon Dioxide 27 (22-30) mmol/L Anion Gap 9 mmol/L BUN 20 (9-20) mg/dL Creatinine 0.74 (0.66-1.25) mg/dL Est GFR (CKD-EPI)AfAm >90 (>60 ml/min/1.73 sqM) Est GFR (CKD-EPI)NonAf 87 (>60 ml/min/1.73 sqM) Glucose 104 H (74-99) mg/dL Calcium 8.6 (8.4-10.2) mg/dL Total Bilirubin 0.2 (0.2-1.3) mg/dL AST 19 (17-59) U/L ALT 13 (4-49) U/L Alkaline Phosphatase 112 (38-126) U/L Total Protein 6.3 (6.3-8.2) g/dL Albumin 3.6 (3.5-5.0) g/dL Blood Type O Negative Blood Type Recheck O Neg Bld Type Recheck Status No Antibody Screen NEGATIVE Crossmatch See Detail Spec Expiration Date 11/13/20222303 Disposition Clinical Impression: Anemia, Symptomatic anemia Disposition: HOME SELF-CARE Condition: Good Instructions (If sedation given, give patient instructions): Anemia (ED) Is patient prescribed a controlled substance at d/c from ED?: No Referrals: Solitario Otero MD [Primary Care Provider] - 1-2 days Decision Date: 11/10/22 Decision Time: 21:11
[2022-11-10 18:43] LABS: Anisocytosis Slight; HCT 23.5 % (39.0-53.0); Hypochromasia Marked; MCH 17.8 pg (25.0-35.0); MCHC 26.3 g/dL (31.0-37.0); Mean Platelet Volume 8.4; Microcytosis Marked; Platelet Count 279 k/uL (150-450); Poikilocytosis Moderate; RBC 3.48 m/uL (4.30-5.90); RDW 17.2 % (11.5-15.5); WBC 6.7 k/uL (3.8-10.6)
[2022-11-10 18:47] LABS: HGB 6.2 gm/dL (13.0-17.5)
[2022-11-10 18:48] LABS: MCV 67.6 fL (80.0-100.0)
[2022-11-10 18:58] LABS: Eosinophils # (M) 0.27 k/uL (0-0.7); Lymphocytes # (M) 0.94 k/uL (1.0-4.8); Monocytes # (M) 0.13 k/uL (0-1.0); Neutrophils # (M) 5.36 k/uL (1.3-7.7); Neutrophils % (M) 80 %; Nucleated Red Blood Cells 0 /100 WBC (0-0); Total Cells Counted 100
[2022-11-11 00:01] VITALS: RESP 16
[2022-11-11 01:33] VITALS: BP 122/78; PULSE 86; TEMP 98.1
== END 2022-11-11 01:34 | disposition home or self-care (01) ==
LOC: EC 17:06
DX: D64.9 Anemia, unspecified (principal); E07.9 Disorder of thyroid, unspecified; E78.5 Hyperlipidemia, unspecified; Z79.890 Hormone replacement therapy; Z79.899 Other long term (current) drug therapy; Z86.73 Personal history of transient ischemic attack (TIA), and cerebral infarction without residual deficits; Z88.8 Allergy status to other drugs, medicaments and biological substances; Z90.49 Acquired absence of other specified parts of digestive tract; Z86.16 Personal history of COVID-19
CPT/HCPCS: 36415; 86900; 86901; 80053; 85025; 86850; 86920; 99284; 36430; P9016